=== PATIENT | female | born 1985 | race Caucasian/White ===

== ENCOUNTER 2016-05-07 18:46 | Emergency (ER) | payer OTHER ==
--- NOTE | 2016-05-07 19:53 | UC ---
Cardiac HPI - HPI Summary HPI Summary: 30 yo female took doxy last PM with a sip of water and then went to sleep Awoke with upper esophageal pain able to eat and drink today took meds today with problems no n/v - History of Current Complaint Chief Complaint: UC Stated Complaint: FB IN THROAT Time Seen by Provider: 05/07/16 19:29 Hx Obtained From: Patient Onset/Duration: Sudden Onset, Lasting Hours Timing: Constant Initial Severity: Moderate Current Severity: Moderate Pain Intensity: 5 Chest Pain Location: Upper Sternal Character: Dull/Aching Aggravating: Nothing - eating and drinking make it worse Alleviating: Nothing Associated Signs & Symptoms: Positive: Chest Pain - Allergy/Home Medications Allergies/Adverse Reactions: Allergies Allergy/AdvReac Type Severity Reaction Status Date / Time Cephalexin [From Keflex] Allergy Unknown Rash Verified 05/07/16 19:11 Amoxicillin Allergy Rash Verified 05/07/16 19:11 Naproxen [From Aleve] AdvReac Mild Swelling Verified 05/07/16 19:11 PMH/Surg Hx/FS Hx/Imm Hx Endocrine History Of: Reports: Thyroid Disease Denies: Diabetes Cardiovascular History Of: Denies: Cardiac Disorders, Hypertension, Pacemaker/ICD Respiratory History Of: Denies: COPD, Asthma GI/ History Of: Denies: Ulcer Psychological History Of: Reports: Anxiety, Depression - Surgical History Surgical History: None - Family History Known Family History: Positive: Hypertension, Diabetes - Social History Alcohol Use: None Substance Use Type: None Smoking Status (MU): Never Smoked Tobacco Have You Smoked in the Last Year: No - Immunization History Vaccination Up to Date: Yes Review of Systems Constitutional: Negative Skin: Negative Eyes: Negative ENT: Negative Respiratory: Negative Cardiovascular: Chest Pain Gastrointestinal: Negative Genitourinary: Negative Motor: Negative Neurovascular: Negative Musculoskeletal: Negative Neurological: Negative Psychological: Negative All Other Systems Reviewed And Are Negative: Yes Physical Exam Triage Information Reviewed: Yes Appearance: Well-Appearing, Well-Nourished, Obese Vital Signs: Initial Vital Signs Temp 97.3 F 05/07/16 18:59 Pulse 83 05/07/16 18:59 Resp 16 05/07/16 18:59 BP 153/103 05/07/16 18:59 Pulse Ox 97 05/07/16 18:59 Eyes: Positive: Conjunctiva Clear ENT: Positive: Hearing grossly normal. Negative: Nasal congestion, Nasal drainage, Trismus, Muffled/hoarse voice Neck: Positive: Supple, Nontender Respiratory: Positive: Lungs clear, Normal breath sounds, No respiratory distress, No accessory muscle use Cardiovascular: Positive: RRR, No Murmur, Pulses Normal Abdomen Description: Positive: Nontender, Soft Musculoskeletal: Positive: ROM Intact, No Edema Neurological: Positive: Alert Psychological Exam: Normal Skin Exam: Normal - Clinical Impression Provider Diagnoses: pill esophagitis Discharge - Discharge Plan Condition: Stable Disposition: HOME Prescriptions: Omeprazole [Prilosec] 20 mg PO DAILY #14 cap Patient Education Materials: Esophagitis (ED) Referrals: Marci Graves MD [Primary Care Provider] - 4 Days (if not better) Additional Instructions: PILL ESOPHAGITIS TAKE YOUR DOXY WITH A LARGE GLASS OF WATER DON'T LAY DOWN FOR AT LEAST 30 MINUTES Mylanta 30cc (2 tablespoons) every 2 hours while awake for about 3 days soft diet for 3-4 days
[2016-05-07 20:04] VITALS: BP 125/90
== END 2016-05-07 20:04 | disposition home or self-care (01) ==
LOC: UCEAST 18:46
DX: K20.9 Esophagitis, unspecified (principal); Z88.6 Allergy status to analgesic agent; Z88.1 Allergy status to other antibiotic agents; Z88.0 Allergy status to penicillin
CPT/HCPCS: 99212; G0463

== ENCOUNTER 2016-08-28 03:44 | Emergency (ER) | payer OTHER ==
[2016-08-28 04:27] LABS: Hematocrit 38 % (35-47); Hemoglobin 12.3 g/dl (12.0-16.0); Mean Corpuscular HGB Conc 33 g/dl (31-36); Mean Corpuscular Hemoglobin 26 pg (27-31); Mean Corpuscular Volume 79 fL (80-97); Mean Platelet Volume 8 um3 (7.4-10.4); Red Blood Count 4.78 10^6/ul (4.0-5.4); Red Cell Distribution Width 16 % (10.5-15); White Blood Count 8.5 10^3/ul (3.5-10.8)
[2016-08-28 04:48] LABS: ALT 19 U/L (7-52); AST 19 U/L (13-39); Albumin 3.8 g/dL (3.2-5.2); Alkaline Phosphatase 77 U/L (34-104); Anion Gap 6 mmol/L (2-11); BUN/Creatinine Ratio 14.6 (8-20); Blood Urea Nitrogen 13 mg/dL (6-24); CO2 Carbon Dioxide 26 mmol/L (22-32); Calcium 8.6 mg/dL (8.6-10.3); Chloride 102 mmol/L (101-111); EGFR African American 94.5 (>60); EGFR Non-African American 73.5 (>60); Globulin 3.1 g/dL (2-4); Glucose 114 mg/dL (70-100); Potassium 3.8 mmol/L (3.5-5.0); Sodium 134 mmol/L (133-145); Total Protein 6.9 g/dL (6.4-8.9)
[2016-08-28 04:59] VITALS: BP 105/63
--- NOTE | 2016-08-28 06:37 | RAD ---
INDICATION: Short of breath. Cold. COMPARISON: None TECHNIQUE: PA and lateral dual-energy views were obtained. FINDINGS: Bones/Soft Tissues: There are no acute bony findings. Cardiomediastinal: The cardiomediastinal silhouette is normal. Lungs: There are no infiltrates. Pleura: There are no pleural effusions. Other: None IMPRESSION: NEGATIVE EXAMINATION.
--- NOTE | 2016-08-28 06:39 | ED ---
Hunter Kidd Anna, scribed for Ignacio Mcdaniels MD on 08/28/16 at 0405 . Respiratory - HPI Summary HPI Summary: Patient is a 30 y/o female coming to [facility] presenting with SOB that began when she woke up at 0300 this morning. She has had a cough, intermittent hot flashes , lower extremity edema, intermittent jaw pain, and intermittent blue nail beds. Her history is significant for chronic lyme disease and anxiety. She takes Sertraline. She has been under some stress lately, but not as much as at other times. She is approaching the beginning of her next menstrual cycle. Denies history of blood clots. She flew to [place] in June and found her feet to be particularly swollen at that time. She noticed pitting edema at that time. Patient medications were reviewed this visit. - History of Current Complaint Chief Complaint: EDShortnessOfBreath Stated Complaint: SOB Hx Obtained From: Patient - Allergy/Home Medications Allergies/Adverse Reactions: Allergies Allergy/AdvReac Type Severity Reaction Status Date / Time Cephalexin [From Keflex] Allergy Unknown Rash Verified 05/07/16 19:11 Amoxicillin Allergy Rash Verified 05/07/16 19:11 Naproxen [From Aleve] AdvReac Mild Swelling Verified 05/07/16 19:11 PMH/Surg Hx/FS Hx/Imm Hx Endocrine/Hematology History: Reports: Hx Thyroid Disease, Hx Anemia - takes iron daily, Other Endocrine/Hematological Disorders - Hx chronic lyme disease Denies: Hx Diabetes Cardiovascular History: Denies: Hx Hypertension, Hx Pacemaker/ICD Respiratory History: Reports: Hx Sleep Apnea - evaluation for 09/2013 Denies: Hx Asthma, Hx Chronic Obstructive Pulmonary Disease (COPD) GI History: Denies: Hx Ulcer Musculoskeletal History: Reports: Hx Orthopedic Injury - 1995 (right) arm fx Sensory History: Reports: Hx Contacts or Glasses Denies: Hx Hearing Aid Opthamlomology History: Reports: Hx Contacts or Glasses Neurological History: Reports: Hx Headaches Psychiatric History: Reports: Hx Anxiety, Hx Depression Denies: Hx Panic Disorder - Cancer History Cancer Type, Location and Year: none Infectious Disease History: Denies: Hx Clostridium Difficile, Hx Hepatitis, Hx Human Immunodeficiency Virus (HIV), Hx of Known/Suspected MRSA, Hx Shingles, Hx Tuberculosis, Hx Known/ Suspected VRE, Hx Known/Suspected VRSA, History Other Infectious Disease, Traveled Outside the [place] in Last 30 Days - Family History Known Family History: Positive: Hypertension, Diabetes - Social History Alcohol Use: None Substance Use Type: Reports: None Smoking Status (MU): Never Smoked Tobacco Have You Smoked in the Last Year: No Review of Systems Constitutional: Other - hot flashes Negative: Fever, Chills Negative: Erythema Negative: Sore Throat Negative: Chest Pain Positive: Shortness Of Breath, Cough Negative: Abdominal Pain, Vomiting, Nausea Negative: dysuria, hematuria Positive: Arthralgia - jaw pain, Edema. Negative: Myalgia Skin: Other - intermittent blue nail beds Negative: Rash Neurological: Other - Denies dizziness All Other Systems Reviewed And Are Negative: Yes Physical Exam - Summary Physical Exam Summary: Constitutional: Well-developed, Well-nourished, Alert. (-) Distressed Skin: Warm, Dry HENT: Normocephalic; Atraumatic Eyes: Conjunctiva normal Neck: Musculoskeletal ROM normal neck. (-) JVD, (-) Stridor, (-) Tracheal deviation Cardio: Rhythm regular, rate normal, Heart sounds normal; Intact distal pulses; The pedal pulses are 2+ and symmetric. Radial pulses are 2+ and symmetric. (-) Murmur Pulmonary/Chest wall: Effort normal. (-) Respiratory distress, (-) Wheezes, (-) Rales Abd: Soft, (-) Tenderness, (-) Distension, (-) Guarding, (-) Rebound Musculoskeletal: (-) Edema Lymph: (-) Cervical adenopathy Neuro: Alert, Oriented x3 Psych: Mood and affect Normal Triage Information Reviewed: Yes Vital Signs On Initial Exam: Initial Vitals Temp Pulse Resp BP Pulse Ox 97.7 F 86 20 149/56 100 08/28/16 03:46 08/28/16 03:46 08/28/16 03:46 08/28/16 03:46 08/28/16 03:46 Vital Signs Reviewed: Yes Diagnostics - Vital Signs Vital Signs Temp Pulse Resp BP Pulse Ox 08/28/16 03:46 97.7 F 86 20 149/56 100 - Laboratory Result Diagrams: 08/28/16 04:16 08/28/16 04:16 Lab Statement: Any lab studies that have been ordered have been reviewed, and results considered in the medical decision making process. - Radiology CXR Xray Interpretation: No Acute Changes Radiology Interpretation Completed By: ED Physician - IMPRESSION: No acute disease - EKG 0423 Cardiac Rate: NL - 79 bpm EKG Rhythm: Sinus Rhythm ST Segment: Normal Ectopy: None EKG Interpretation: No STEMI Re-Evaluation - Re-Evaluation First Eval Re-Evaluation Time: 05:34 Comment: Discussed results and plan of care with patient. Patient is agreeable with plan. Disposition - Course Assessment/Plan: Patient is a 30 y/o female coming to [facility] presenting with SOB that began when she woke up at 0300 this morning. Her physical exam is normal. Labs reveal D-Dimer <200, BNP of 17, glucose of 114, and WBC of 8.5. CXR reveals no acute disease. EKG reveals NSR at 79 bpm. Patient will be discharged home with follow up from her PCP. She is agreeable to this plan. - Diagnoses Provider Diagnoses: Shortness of breath Discharge - Discharge Plan Condition: Stable Disposition: HOME Patient Education Materials: Dyspnea (ED) Referrals: Marci Graves MD [Primary Care Provider] - Additional Instructions: Follow up with primary care provider within 48 hours. RETURN TO THE EMERGENCY DEPARTMENT FOR CHANGING OR WORSENING SYMPTOMS. The documentation as recorded by the Hunter daniels Anna accurately reflects the service I personally performed and the decisions made by me, Ignacio Mcdaniels MD.
== END 2016-08-28 05:56 | disposition home or self-care (01) ==
LOC: ED 03:44
DX: R06.02 Shortness of breath (principal); D64.9 Anemia, unspecified; Z88.0 Allergy status to penicillin
CPT/HCPCS: 36415; 71020; 80053; 83880; 84484; 84702; 85025; 85379; 93005; 99282

== ENCOUNTER 2016-11-12 16:29 | Emergency (ER) | payer OTHER ==
--- NOTE | 2016-11-12 17:40 | UC ---
Skin Complaint HPI - HPI Summary HPI Summary: Patient states she was bite by black flies two weeks ago in [place] on the beach. All of the areas have healed except the one on her right foot. She states this area is red, warm to touch and had a small amount of green drainage from it. She states that the center had dried up and is beginning to scab over. She states there are no red streaks coming up the leg. Denies fever/chills. - History of Current Complaint Chief Complaint: UCSkin Time Seen by Provider: 11/12/16 17:19 Stated Complaint: BUG BITE,INFLAMED Hx Obtained From: Patient Hx Last Menstrual Period: 10/27/16 ?: No Onset/Duration: Sudden Onset, Lasting Weeks Onset Severity: Mild Current Severity: Mild Location: Discrete, Foot (Left) Character: Swelling, Pruritus, Raised, Painful Aggravating: Touch Alleviating: Nothing - Allergy/Home Medications Allergies/Adverse Reactions: Allergies Allergy/AdvReac Type Severity Reaction Status Date / Time Cephalexin [From Keflex] Allergy Unknown Rash Verified 11/12/16 16:38 Amoxicillin Allergy Rash Verified 11/12/16 16:38 Naproxen [From Aleve] AdvReac Mild Swelling Verified 11/12/16 16:38 Review of Systems Skin: Other - insect bite, with surrounding redness, warmth, and peeling skin. All Other Systems Reviewed And Are Negative: Yes PMH/Surg Hx/FS Hx/Imm Hx Previously Healthy: Yes - Surgical History Surgical History: None - Family History Known Family History: Positive: Hypertension, Diabetes - Social History Alcohol Use: None Substance Use Type: None Smoking Status (MU): Never Smoked Tobacco Have You Smoked in the Last Year: No - Immunization History Vaccination Up to Date: Yes Physical Exam Triage Information Reviewed: Yes Appearance: Well-Appearing Vital Signs: Initial Vital Signs Temp 96.5 F 11/12/16 16:33 Pulse Ox 99 11/12/16 16:33 Vital Signs Reviewed: Yes Eye Exam: Normal ENT Exam: Normal Neck exam: Normal Respiratory Exam: Normal Cardiovascular Exam: Normal Skin Exam: Other - left foot lateral aspect, inspection: dried lifting scab at center 1.0 cm, with surrounding erythema, induration and slighly warm to touch. Course/Dx - Course Course Of Treatment: Patient presents two weeks s/p insect bites to the left foot, with residual redness, warmth, and pain. She also reports drainage from the site, and currently the scab is dried, so a culture could no be obtained. There was no flucuance so I+D was not indicated. She presents with localized cellulitis,and was RX Keflex 500 mg by mouth four times daily x 10 days. I discussed with the patient that if her symptoms worsen she will need an immediate re-evaluation of the infection. She verbalzied understanding and was in agreement with the discharge plan. - Differential Diagnoses - Skin Complaint Differential Diagnoses: Cellulitis - Diagnoses Provider Diagnoses: cellulitis Discharge - Discharge Plan Condition: Stable Disposition: HOME Prescriptions: Cephalexin CAP* [Keflex CAP*] 500 mg PO QID #40 cap Patient Education Materials: Cellulitis (ED) Referrals: Marci Graves MD [Primary Care Provider] -
== END 2016-11-12 17:30 | disposition home or self-care (01) ==
LOC: UCEAST 16:29
DX: L03.115 Cellulitis of right lower limb (principal); Z88.6 Allergy status to analgesic agent; Z88.3 Allergy status to other anti-infective agents
CPT/HCPCS: 99212; G0463

== ENCOUNTER → 2018-08-02 18:18 | Emergency (ER) | payer OTHER ==
--- OUTSIDE RECORDS SUMMARY | 2018-08-02 18:45 | XMS REPORT | Continuity of Care Document ---
:1985 External Reference #:[id number] Author Name Alva Almaraz MD Address [facility] [place] [address] Care Team Providers Name Role Phone Marci Graves MD Care Team Information Control Clerk Auditing Unavailable Marci Graves MD Primary Care Physician Unavailable Payers Date Identification Numbers Payment Provider Subscriber Policy Number: [id number] Sandra Prather PayID: [id number] [address] [place] [address] Advance Directives Description No Information Available Problems Description No Information Family History Description No Information Available Social History Type Date Description Comments Sex Unknown Tobacco Use Start: Unknown Patient has never smoked Smoking Status Reviewed: 07/27/18 Patient has never smoked Allergies, Adverse Reactions, Alerts Active Allergies Reaction Severity Comments Date Naproxen 07/09/2018 Azithromycin Free Text 07/09/2018 Cephalexin Free Text 07/09/2018 Medications Active Medications SIG Qnty Indications Ordering Date Provider Pantoprazole Sodium take 1 tablet 30tabs Alva 07/28/2018 40mg once daily. take MD Sung Tablets DR 30-60 minutes before eating. Levothyroxine Sodium 1 by mouth every 100tabs Marci Graves, day 100mcg Tablets Hydroxyzine HCL Take 1 2 Tablets Unknown 25mg By Mouth Four Tablets Times A Day as Needed For Anxiety Metformin HCL ER Take One Tablet Unknown 500mg By Mouth Twice A Tablets ER 24HR Day Immunizations Description No Information Available Vital Signs Date Vital Result Comment 07/27/2018 3:56pm Height 70 inches 5'10" Weight 357.00 lb BP Systolic 142 mmHg BP Diastolic 91 mmHg Heart Rate 102 /min BMI (Body Mass Index) 51.2 kg/m2 Results Test Date Facility Test Result H/L Range Note Lipid Profile 04/18/2018 [facility] Import Triglycerides 340 mg/dL 1 (Trig/Chol/HDL) Cholesterol 174 mg/dL 2 HDL Cholesterol 27.6 mg/dL 3 LDL Cholesterol 78 mg/dL 4 Lab Results 04/18/2018 [facility] Total Protein 7.2 g/dL 6.4-8.9 Albumin 4.0 g/dL 3.2-5.2 Globulin 3.2 g/dL 2-4 Albumin/Globulin Ratio 1.3 1 1-3 Total Bilirubin 0.40 mg/dL 0.2-1 Direct Bilirubin 0.00 mg/dL Low 0.03-0.18 Alkaline Phosphatase 67 U/L 34-104 Alt 19 U/L 7-52 Ast 20 U/L 13-39 Glucose 106 mg/dL High 70-100 Creatinine 0.87 mg/dL 0.51-0.95 Egfr Non- 74.5 1 Egfr 90.2 1 5 TSH (Thyroid Stim Horm) 2.11 mcIU/mL 0.34-5.6 Free T4 (Free Thyroxine) 0.92 ng/dL 0.61-1.12 Insulin Level 22.1 mcIU/mL High 2-16 Dhea Sulfate 192 g/dL 45-295 6 Lab Results 04/18/2018 [facility] Import Glucose 106 mg/dL High 70-100 Creatinine 0.87 mg/dL 0.51-0.95 Egfr Non- 74.5 1 Egfr 90.2 1 7 TSH (Thyroid Stim Horm) 2.11 mcIU/mL 0.34-5.6 Free T4 (Free Thyroxine) 0.92 ng/dL 0.61-1.12 Insulin Level 22.1 mcIU/mL High 2-16 Dhea Sulfate 192 g/dL 45-295 8 Lab Results 04/18/2018 N[facility] Import Creatinine 0.87 mg/dL 0.51-0.95 Egfr Non- 74.5 1 Egfr 90.2 1 9 TSH (Thyroid Stim Horm) 2.11 mcIU/mL 0.34-5.6 Free T4 (Free Thyroxine) 0.92 ng/dL 0.61-1.12 Insulin Level 22.1 mcIU/mL High 2-16 Dhea Sulfate 192 g/dL 45-295 10 Lab Results 04/18/2018 [facility] Import TSH (Thyroid Stim 2.11 mcIU/mL 0.34-5.6 Horm) Free T4 (Free Thyroxine) 0.92 ng/dL 0.61-1.12 Insulin Level 22.1 mcIU/mL High 2-16 Dhea Sulfate 192 g/dL 45-295 11 Testosterone Free 04/18/2018 N[facility] Import Free Testosterone 0.56 ng/dL 0.06-1.03 12 & Total ng/dl Testosterone 28 ng/dL 8-60 13 Lab Results 03/20/2018 [facility] Import Free T3 2.46 pg/mL 2-4.9 Free T4 0.77 ng/dL 0.75-1.54 TSH 6.72 mIU/L High 0.5-6 14 Comprehensive Metabolic Prof 03/13/2018 [facility] Import Sodium 138 mEq/L 134-149 Potassium 4.5 mEq/L 3.6-5.5 Chloride 105 mEq/L 94-112 Carbon Dioxide 26 mEq/L 21-32 Glucose 103 mg/dL 70-105 BUN 6 mg/dL 6-26 Creatinine 0.9 mg/dL 0.6-1.4 BUN/Creat Ratio 6.7 CALC Low 8-36 Calcium 9.0 mg/dL 8.6-10.2 Total Protein 7.5 g/dL 6.4-8.3 Albumin 4.4 g/dL 3.8-5.5 Globulin 3.1 g/dL 2-4.8 A/G Ratio 1.4 CALC 0.6-2.3 Alk. Phosphatase 74 U/L 30-110 Alt (SGPT) 30 U/L 7-35 Ast (Sgot) 23 U/L 5-34 Total Bilirubin 0.4 mg/dL 0.2-1.3 GFR Non- >60 ml/min/1.73m^ GFR >60 ml/min/1.73m^ Lipid Profile 03/13/2018 N2N/[facility] Import Cholesterol 192 mg/dL 120-200 Triglycerides 397 mg/dL High 30-200 HDL Cholesterol 35 mg/dL 30-85 LDL (Calculated) 78 CALC 0-129 VLDL Cholesterol 79 mg/dL High 0-50 HDL Risk Factor 5.5 CALC High 0-4.4 Lab Results 03/13/2018 N2N/[facility] Import WBC 8.0 10^3/uL 4-10 RBC 5.05 10^6/uL 3.93-6 HGB 13.3 g/dL 12-17 HCT 41 % 35-50 MCV 81.2 fL 80-95 MCH 26.3 pg 25.6-32.2 MCHC 32.4 g/dL 32.2-36 RDW-CV 14.2 % 11.6-14.4 PLT 324 10^3/uL 163-400 MPV 9.2 fL Low 9.4-12.4 Silas# 5.06 10^3/uL 1.56-6.13 Lymph# 2.33 10^3/uL 1.18-3.74 Elk# 0.48 10^3/uL 0.24-0.82 Eos # 0.1 10^3/uL 0-0.5 Baso # 0.04 10^3/uL 0.01-0.08 Silas% 63.1 % 34-70 Lymph % 29.1 % 20-52 Elk% 6.0 % 5-12 Eos% 1.1 % 0.7-7 Baso% 0.5 % 0.1-1.2 Lab Results 03/13/2018 N2N/[facility]D Import LDL, Direct 101 mg/dL 0-130 WBC 8.0 10^3/uL 4-10 RBC 5.05 10^6/uL 3.93-6 HGB 13.3 g/dL 12-17 HCT 41 % 35-50 MCV 81.2 fL 80-95 MCH 26.3 pg 25.6-32.2 MCHC 32.4 g/dL 32.2-36 RDW-CV 14.2 % 11.6-14.4 PLT 324 10^3/uL 163-400 MPV 9.2 fL Low 9.4-12.4 Silas# 5.06 10^3/uL 1.56-6.13 Lymph# 2.33 10^3/uL 1.18-3.74 Elk# 0.48 10^3/uL 0.24-0.82 Eos # 0.1 10^3/uL 0-0.5 Baso # 0.04 10^3/uL 0.01-0.08 Silas% 63.1 % 34-70 Lymph % 29.1 % 20-52 Elk% 6.0 % 5-12 Eos% 1.1 % 0.7-7 Baso% 0.5 % 0.1-1.2 CBC Auto Diff 08/28/2016 N2N/[address] Import White Blood Count 8.5 10^3/uL 3.5-10.8 Red Blood Count 4.78 10^6/uL 4-5.4 Hemoglobin 12.3 g/dL 12-16 Hematocrit 38 % 35-47 Mean Corpuscular Volume 79 fL Low 80-97 Mean Corpuscular Hemoglobin 26 pg Low 27-31 Mean Corpuscular HGB Conc 33 g/dL 31-36 Red Cell Distribution Width 16 % High 10.5-15 Platelet Count 261 10^3/uL 150-450 Mean Platelet Volume 8 um3 7.4-10.4 Abs Neutrophils 4.1 10^3/uL 1.5-7.7 Abs Lymphocytes 3.6 10^3/uL 1-4.8 Abs Monocytes 0.5 10^3/uL 0-0.8 Abs Eosinophils 0.2 10^3/uL 0-0.6 Abs Basophils 0.1 10^3/uL 0-0.2 Abs Nucleated RBC 0.01 10^3/uL Granulocyte % 47.7 % 38-83 Lymphocyte % 42.7 % 25-47 Monocyte % 6.4 % 1-9 Eosinophil % 2.2 % 0-6 Basophil % 1.0 % 0-2 Nucleated Red Blood Cells % 0.1 1 Lab Results 08/28/[address] [facility] Import D Dimer Quantitative < 200 ng/mL 15 B-Type Natriuretic Peptide BNP 17 pg/mL 16 Comp Metabolic Panel 08/28/2016 N2N/[address] Import Sodium 134 mmol/L 133- 145 Potassium 3.8 mmol/L 3.5-5 Chloride 102 mmol/L 101-111 Co2 Carbon Dioxide 26 mmol/L 22-32 Anion Gap 6 mmol/L 2-11 Glucose 114 mg/dL High 70-100 Blood Urea Nitrogen 13 mg/dL 6-24 Creatinine 0.89 mg/dL 0.51-0.95 BUN/Creatinine Ratio 14.6 1 8-20 Calcium 8.6 mg/dL 8.6-10.3 Total Protein 6.9 g/dL 6.4-8.9 Albumin 3.8 g/dL 3.2-5.2 Globulin 3.1 g/dL 2-4 Albumin/Globulin Ratio 1.2 1 1-3 Total Bilirubin 0.20 mg/dL 0.2-1 Alkaline Phosphatase 77 U/L 34-104 Alt 19 U/L 7-52 Ast 19 U/L 13-39 Egfr Non- 73.5 1 Egfr 94.5 1 17 Lab Results 08/28/2016 N2N/[facility]D Import Troponin I 0.00 ng/mL 18 HCG < 0.60 mIU/mL 19 Comprehensive Metabolic Prof 08/10/2016 N2N/[facility] Import Sodium 141 mEq/L 134-149 Potassium 4.5 mEq/L 3.6-5.5 Chloride 101 mEq/L 94-112 Carbon Dioxide 22 mEq/L 21-32 Glucose 113 mg/dL High 70-105 20 BUN 16 mg/dL 6-26 Creatinine 0.8 mg/dL 0.6-1.4 BUN/Creat Ratio 20.0 CALC 8-36 Calcium 9.0 mg/dL 8.6-10.2 Total Protein 7.5 g/dL 6.4-8.3 Albumin 4.4 g/dL 3.8-5.5 Globulin 3.1 g/dL 2-4.8 A/G Ratio 1.4 CALC 0.6-2.3 Alk. Phosphatase 71 U/L 30-110 Alt (SGPT) 18 U/L 7-35 Ast (Sgot) 21 U/L 5-34 Total Bilirubin 0.3 mg/dL 0.2-1.3 GFR Non- >60 ml/min/1.73m^ GFR >60 ml/min/1.73m^ Lipid Profile 08/10/2016 N2N[facility] Import Cholesterol 193 mg/dL 120-200 Triglycerides 353 mg/dL High 30-200 HDL Cholesterol 35 mg/dL 30-85 LDL (Calculated) 87 CALC 0-129 VLDL Cholesterol 71 mg/dL High 0-50 HDL Risk Factor 5.5 CALC High 0-4.4 Complete Blood Count 08/10/2016 N2N/[facility] Import WBC 5.5 10^3/uL 3.6-9.6 RBC 4.79 10^6/uL 3.9-5.7 HGB 12.9 g/dL 12.1-17.2 HCT 38 % 36-50 MCV 80.0 fL Low 82.2-97.4 MCH 27.0 pg Low 27.6-33.3 21 MCHC 33.8 g/dL 33-35.5 RDW 15.3 % High 11.6-13.7 PLT 319 10^3/uL 150-400 MPV 7.1 fL Low 7.4-10.4 Gran # 3.5 10^3/uL 1.5-7.2 Lymph# 1.8 10^3/uL 0.7-4.9 Elk# 0.2 10^3/uL 0.1-0.9 Gran % 60.9 % 42.2-75.2 Lymph % 34.0 % 20.5-51.1 Elk% 5.1 % 1.7-9.3 Lab Results 08/10/2016 N2N/[facility] Import LDL, Direct 91 mg/dL 0-130 1 Desirable: <150 Borderline High: 150-199 High: 200-499 Very High: >500 2 Desirable: <200 Borderline High: 200-239 High: >239 3 Low: <40 Desirable: 40-60 High: >60 4 Desirable: <100 Near Optimal: 100-129 Borderline High: 130-159 High: 160-189 Very High: >189 5 Low: <40 Desirable: 40-60 High: >60 6 Desirable: <100 Near Optimal: 100-129 Borderline High: 130-159 High: 160-189 Very High: >189 7 Low: <40 Desirable: 40-60 High: >60 8 Desirable: <100 Near Optimal: 100-129 Borderline High: 130-159 High: 160-189 Very High: >189 9 Low: <40 Desirable: 40-60 High: >60 10 Desirable: <100 Near Optimal: 100-129 Borderline High: 130-159 High: 160-189 Very High: >189 11 Desirable: <100 Near Optimal: 100-129 Borderline High: 130-159 High: 160-189 Very High: >189 12 Desirable: <150 Borderline High: 150-199 High: 200-499 Very High: >500 13 Desirable: <200 Borderline High: 200-239 High: >239 14 RESULTS VERIFIED BY REPEAT ANALYSIS 15 Please note: The following may produce a false positive D Dimer test: - Rheumatoid factor greater than 60 IU/ml - Plasma hemoglobin greater than 0.05 gm/dl - Bilirubin greater than 50 mg/dl - Lipids greater than 1000 mg/dl - FDP greater than 20 ug/ml 16 >100 to <200 pg/mL: likely compensated congestive heart failure (CHF) 200 to 400 pg/mL: likely moderate CHF >400 pg/mL: likely moderate to severe CHF 17 Because ethnic data is not always readily available, this report includes an eGFR for both -Americans and non- Americans. The National Kidney Disease Education Program (NKDEP) does not endorse the use of the MDRD equation for patients that are not between the ages of 18 and 70, are , have extremes of body size, muscle mass, or nutritional status, or are non- or non-. According to the National Kidney Foundation, irrespective of diagnosis, the stage of the disease is based on the level of kidney function: Stage Description GFR(mL/min/1.73 m(2)) 1 Kidney damage with normal or decreased GFR 90 2 Kidney damage with mild decrease in GFR 60-89 3 Moderate decrease in GFR 30-59 4 Severe decrease in GFR 15-29 5 Kidney failure <15 (or dialysis) 18 Please note: The following may produce a false positive D Dimer test: - Rheumatoid factor greater than 60 IU/ml - Plasma hemoglobin greater than 0.05 gm/dl - Bilirubin greater than 50 mg/dl - Lipids greater than 1000 mg/dl - FDP greater than 20 ug/ml 19 >100 to <200 pg/mL: likely compensated congestive heart failure (CHF) 200 to 400 pg/mL: likely moderate CHF >400 pg/mL: likely moderate to severe CHF 20 RESULTS VERIFIED BY REPEAT ANALYSIS 21 consistent w/ previous results Procedures Description No Information Available Encounters Description No Information Available Plan of Treatment No Information Available
--- OUTSIDE RECORDS SUMMARY | 2018-08-02 18:46 | XMS REPORT | Continuity of Care Document ---
:1985 External Reference #:[id number] Author Name KAUR Magana Address [address] [facility] [place] [address] Care Team Providers Name Role Phone Marci Graves Primary Care Physician Unavailable Payers Date Identification Numbers Payment Provider Subscriber Policy Number: [id number] [employer] Oliver[employer]ather [employer] Number: [id number] [id number] PayID: [id number] [place] [address] Advance Directives Description No Information Available Problems Date Description Provider Status Onset: 06/19/2015 Obesity Georgina Arroyo NP Active Onset: 06/19/2015 Hypothyroidism Georgina Arroyo NP Active Onset: 03/31/2014 Screening Unspecified Georgina Arroyo NP Inactive Inactive: 07/13/2015 Onset: 03/31/2014 Uncertain viability of Georgina Arroyo NP Resolved Resolved: 04/15/2014 Onset: 04/15/2014 With Inconclusive Georgina Arroyo NP Resolved Viabilty Resolved: 04/15/2014 Onset: 04/15/2014 Miscarriage Georgina Arroyo NP Resolved Resolved: 06/19/2015 Family History Date Family Member(s) Observation Comments Father Hypercholesterolemia Father Hypertension Father Kidney Stones Mother Hypothyroidism Mother OCD Mother Gallstones Mother Diabetes Mother Depression Number of Children 1 First Daughter Gastroesophageal Reflux Disease (GERD) Number of Siblings Siblings: 2 First Brother Healthy First Sister Crohn's Disease Paternal Grandfather due to OR () Paternal Grandmother due to Parkinsons () Paternal Grandmother Skin Cancer Paternal Grandmother due to Sepsis () Maternal Grandfather due to Leukemia () Maternal Grandmother due to Lung Cancer () Social History Type Date Description Comments Sex Unknown Education Highest level of education completed is a bachelor's degree Marital Status Patient is Living Situation Lives with spouse and daughter Pets Household pets include 2 cats Occupation [employer] Cigarette Use Never smoked cigarettes Alcohol Denies alcohol use Tobacco Use Start: Unknown Patient has never smoked Drug Use Denies drug use Smoking Status Reviewed: Patient has never 07/10/18 smoked Daily Caffeine Occ Soda Exercise Type/Frequency Exercises regularly Current Seat Belt/Car Seat Always uses a seat belt Currently Active The patient is currently sexually active Contraceptive Methods Does not currently use any method of control STD's Has HPV GARRET: 08/10/2012 Estimated Date of Based on LMP Delivery Allergies, Adverse Reactions, Alerts Date Description Reaction Status Severity Comments 07/10/2007 Keflex Active 02/07/2012 Aleve Active 03/31/2014 Latex Active Medications Medication Date Status Form Strength Qnty SIG Indications Ordering Provider Fish Oil 00/ Active Unknown 0000 Levothyroxine / Active 100mcg Unknown Sodium 0000 Vitamin D / Active Unknown 0000 Vitamin B12 / Active Unknown 0000 Metformin HCL / Active Unknown 0000 Percocet 06/30/ Hx Tablets 5-325mg 12tabs one Dvorah 2015 - tablet by Luis Carlos, 09/27/ mouth M.D. 2016 q4-6 hours as needed for strong pain PNV-Dha 06/11/ Hx Capsules 27-0.6-0.4 90caps take one Yessenia 2013 - -300mg capsule Gentry, 09/27/ by mouth ANP-C 2016 every day Vistaril 09/19/ Hx Capsules 50mg 20caps 1 tablet Courtney 2012 - po q 4-6 Meza, 03/14/ hours prn CNM 2012 anxiety + Dha 07/16/ Hx Misc 27-1&250mg 30unit 1 po qd María 2012 - s Phill, 03/31/ CNM 2013 No Active 02/06/ Hx Unknown Medications 2011 - 2012 Briellyn 09/11/ Hx Tablets 0.4-35mg-m 3mo 1 po qd Acosta Baez 2011 - cg Ben, 09/09/ M.Eder 2011 Tri-Sprintec 09/11/ Hx Tablets 0.18/0.215 4mo 1 po qd Valeri 2011 - /0.25 mg-3 Thang, 02/04/ 2011 Loloestrin Fe 07/15/ Hx 1mg/10mcg 1Pack 1 po qd V25.49 Courtney 2010 - And 10mcg Meza, 09/11/ HANNAH 2012 Cecilia 08/12/ Hx Tablets 3-0.02mg 28tabs 1 po qd V25.49 Yessenia 2009 - Gentry, 02/22/ KAUR 2009 Sertraline HCL / Hx Unknown 0000 - 2017 Medications Administered in Office Medication Date Status Form Strength Qnty SIG Indications Ordering Provider No PT Tbco Administered Injection Yessenia SCRN RNG 019 GEORGE RinaldiC No PT Tbco Administered Injection Yessenia SCRN RNG 018 HYUN Rinaldi-C PT SCRN Tbco Administered Injection Yessenia Id as Non User 018 KAUR Rinaldi Immunizations CPT Code Status Date Vaccine Lot # [id number] Given 02/28/2012 Influenza Virus Vaccine 3Years Or Older 05756 Given 11/16/2009 Gardasil Vaccine For HPV 01423 Given 05/28/2009 Gardasil Vaccine For HPV 62537 Given 03/18/2009 Gardasil Vaccine For HPV Vital Signs Date Vital Result Comment 07/10/2018 1:02pm BP Systolic 128 mmHg BP Diastolic 80 mmHg Height 70.25 inches 5'10.25" Weight 340.00 lb BMI (Body Mass Index) 48.4 kg/m2 Last Menstrual Period 9682419 3 Parity 1 10/12/2017 9:01am BP Systolic 130 mmHg BP Diastolic 60 mmHg Height 70.25 inches 5'10.25" Weight 335.00 lb BMI (Body Mass Index) 47.7 kg/m2 Last Menstrual Period [id number] 3 Parity 1 09/27/2016 7:59am BP Systolic 130 mmHg BP Diastolic 80 mmHg Height 70.25 inches 5'10.25" Weight 333.00 lb BMI (Body Mass Index) 47.4 kg/m2 Last Menstrual Period [id number] 3 Parity 1 06/30/2015 9:49am BP Systolic 130 mmHg BP Diastolic 72 mmHg Height 70.25 inches 5'10.25" Weight 303.00 lb BMI (Body Mass Index) 43.2 kg/m2 Last Menstrual Period [id number] 3 Parity 1 06/24/2015 9:13am BP Systolic 134 mmHg BP Diastolic 82 mmHg Height 70.25 inches 5'10.25" Weight 304.00 lb BMI (Body Mass Index) 43.3 kg/m2 Last Menstrual Period 0320127 3 Parity 1 06/19/2015 3:17pm BP Systolic 122 mmHg BP Diastolic 70 mmHg Height 70.25 inches 5'10.25" Weight 306.00 lb BMI (Body Mass Index) 43.6 kg/m2 Last Menstrual Period 8249215 2 Parity 1 04/15/2014 8:25am BP Systolic 108 mmHg BP Diastolic 72 mmHg Height 70.25 inches 5'10.25" Weight 273.00 lb BMI (Body Mass Index) 38.9 kg/m2 Last Menstrual Period 3281212 2 Parity 1 03/31/2014 2:12pm BP Systolic 126 mmHg BP Diastolic 72 mmHg Height 70.25 inches 5'10.25" Weight 269.00 lb BMI (Body Mass Index) 38.3 kg/m2 Last Menstrual Period 8809821 2 Parity 1 03/15/2013 9:48am BP Systolic 114 mmHg BP Diastolic 70 mmHg Height 69 inches 5'9" Weight 239.00 lb BMI (Body Mass Index) 35.3 kg/m2 Last Menstrual Period 3925623 1 Parity 1 10/15/2012 1:20pm BP Systolic 114 mmHg BP Diastolic 74 mmHg Height 69 inches 5'9" Weight 236.00 lb BMI (Body Mass Index) 34.8 kg/m2 Last Menstrual Period [id number] del 09/14/12 1 Parity 1 02/07/2012 2:07pm BP Systolic 112 mmHg BP Diastolic 74 mmHg Height 69 inches 5'9" Weight 232.00 lb BMI (Body Mass Index) 34.3 kg/m2 Last Menstrual Period 6976069 1 09/12/2011 1:00pm BP Systolic 120 mmHg BP Diastolic 86 mmHg Height 69 inches 5'9" Weight 231.00 lb BMI (Body Mass Index) 34.1 kg/m2 Last Menstrual Period [id number] 0 07/15/2010 12:54pm BP Systolic 112 mmHg BP Diastolic 72 mmHg Height 69.5 inches 5'9.50" Weight 229.00 lb BMI (Body Mass Index) 33.3 kg/m2 Last Menstrual Period [id number] 0 02/22/2010 1:49pm BP Systolic 130 mmHg BP Diastolic 90 mmHg Height 69.75 inches 5'9.75" Weight 224.00 lb BMI (Body Mass Index) 32.4 kg/m2 Last Menstrual Period [id number] 08/12/2009 8:54am BP Systolic 110 mmHg BP Diastolic 62 mmHg Height 69.75 inches 5'9.75" Weight 217.00 lb BMI (Body Mass Index) 31.4 kg/m2 Last Menstrual Period [id number] 0 06/18/2009 8:07am BP Systolic 116 mmHg BP Diastolic 68 mmHg Height 69.75 inches 5'9.75" Weight 214.00 lb BMI (Body Mass Index) 30.9 kg/m2 Last Menstrual Period 6908610 0 05/29/2009 1:00pm BP Systolic 130 mmHg BP Diastolic 58 mmHg Height 69 inches 5'9" Weight 207.00 lb BMI (Body Mass Index) 30.6 kg/m2 Last Menstrual Period 1201991 0 03/17/2009 1:17pm BP Systolic 106 mmHg BP Diastolic 60 mmHg Height 69 inches 5'9" Weight 207.00 lb BMI (Body Mass Index) 30.6 kg/m2 Last Menstrual Period [id number] 02/26/2009 1:20pm BP Systolic 130 mmHg BP Diastolic 70 mmHg Height 69 inches 5'9" Weight 202.00 lb BMI (Body Mass Index) 29.8 kg/m2 Last Menstrual Period 5228244 0 02/03/2009 8:08am BP Systolic 116 mmHg BP Diastolic 80 mmHg Height 69 inches 5'9" Weight 198.00 lb BMI (Body Mass Index) 29.2 kg/m2 Last Menstrual Period 7226000 0 07/23/2007 10:55am BP Systolic 112 mmHg BP Diastolic 70 mmHg Height 69 inches 5'9" Weight 244.00 lb BMI (Body Mass Index) 36.0 kg/m2 Last Menstrual Period 3065059 07/10/2007 9:40am BP Systolic 124 mmHg BP Diastolic 76 mmHg Height 69 inches 5'9" Weight 243.00 lb BMI (Body Mass Index) 35.9 kg/m2 Last Menstrual Period 5045863 Results Test Date Facility Test Result H/L Range Note Laboratory test 09/27/2016 [facility] Cytology SEE RESULT 1 [place] [address] BELOW [phone] Human Papilloma Virus Rna Negative N Negative 2 Laboratory test 08/03/2015 [facility] HCG 5.28 mIU/mL N 3 [place] [address] [phone] Laboratory test 07/13/2015 [facility] HCG 101.05 N 4 [place] [address] mIU/mL [phone] CBC With No Diff 07/09/2015 [facility] White Blood 8.6 10^3/uL N 3.5-10 [place] [address] Count .8 [phone] Red Blood Count 4.72 10^6/uL N 4.0-5.4 Hemoglobin 12.9 g/dL N 12.0-16.0 Hematocrit 39 % N 35-47 Mean Corpuscular Volume 83 fL N 80-97 Mean Corpuscular Hemoglobin 27 pg N 27-31 Mean Corpuscular HGB Conc 33 g/dL N 31-36 Red Cell Distribution Width 16 % High 10.5-15 Platelet Count 265 10^3/uL N 150-450 Mean Platelet Volume 8 um3 N 7.4-10.4 Laboratory test 07/09/2015 [facility] HCG 274.54 N 5 [place] [address] mIU/mL [phone] Liver Function 07/09/2015 [facility] Total Protein 7.0 g/dL N 6.4-8[place] [address] [phone] Albumin 4.2 g/dL N 3.2-5.2 Globulin 2.8 g/dL N 2-4 Albumin/Globulin Ratio 1.5 N 1-3 Total Bilirubin 0.30 mg/dL N 0.2-1.0 Direct Bilirubin 0.00 mg/dL Low 0.03-0.18 Alkaline Phosphatase 51 U/L N 34-104 Alt 15 U/L N 7-52 Ast 15 U/L N 13-39 Laboratory test 07/07/2015 [facility] HCG 525.88 N 6 [place] [address] mIU/mL [phone] Comp Metabolic 06/30/2015 [facility] Sodium 135 mmol/L N 133- 14 [place] [address] 5 [phone] Potassium 4.3 mmol/L N 3.5-5.0 Chloride 103 mmol/L N 101-111 Co2 Carbon Dioxide 27 mmol/L N 22-32 Anion Gap 5 mmol/L N 2-11 Glucose 95 mg/dL N 70-100 Blood Urea Nitrogen 7 mg/dL N 6-24 Creatinine 0.80 mg/dL N 0.51-0.95 BUN/Creatinine Ratio 8.8 N 8-20 Calcium 9.2 mg/dL N 8.6-10.3 Total Protein 7.0 g/dL N 6.4-8.9 Albumin 4.2 g/dL N 3.2-5.2 Globulin 2.8 g/dL N 2-4 Albumin/Globulin Ratio 1.5 N 1-3 Total Bilirubin 0.30 mg/dL N 0.2-1.0 Alkaline Phosphatase 49 U/L N 34-104 Alt 15 U/L N 7-52 Ast 16 U/L N 13-39 Egfr Non- 83.7 N >60 Egfr 107.6 N >60 7 CBC With No 06/30/2015 [facility] White Blood 5.9 10^3/uL N 3.5-10.8 [place] [address] Count [phone] Red Blood Count 4.78 10^6/uL N 4.0-5.4 Hemoglobin 12.9 g/dL N 12.0-16.0 Hematocrit 40 % N 35-47 Mean Corpuscular Volume 84 fL N 80-97 Mean Corpuscular Hemoglobin 27 pg N 27-31 Mean Corpuscular HGB Conc 32 g/dL N 31-36 Red Cell Distribution Width 15 % N 10.5-15 Platelet Count 258 10^3/uL N 150-450 Mean Platelet Volume 8 um3 N 7.4-10.4 Laboratory test 06/30/2015 [facility] HCG 1938.00 mIU/ mL N 8 finding [place], [place] [address] [phone] Laboratory test 06/26/2015 [facility] HCG 2836.00 mIU/ mL N 9 [place] [address] [phone] Laboratory test 06/24/2015 [facility] HCG 2978.00 mIU/ mL N 10 [address] [place], [place] [id number] [phone] Progesterone 3.2 ng/mL N 11 Laboratory test 06/22/2015 [facility] HCG 3031.00 N 12, 13 [place] [address] mIU/mL [phone] Laboratory test 06/19/2015 [facility] HCG 2837.00 N 14 [place] [address] mIU/mL [phone] Free T4 (Free Thyroxine) 0.88 ng/dL N 0.61-1.12 TSH (Thyroid Stim Horm) 1.39 ?IU/mL N 0.34-5.60 Laboratory test 06/19/2015 [facility] Cytology SEE RESULT 15 [place] [address] BELOW [phone] GC/Chlamydia 06/19/2015 [facility] Chlamydia Negative [place] [address] trachomatis Rna [phone] Neisseria gonorrhoeae (GC) Rna Negative N Negative Laboratory test 06/19/2015 [facility] Human Papilloma Negative N Negative [address] [place] [address] Virus Rna [phone] Laboratory test 05/02/2014 [facility] Beta HCG 2.97 IU/mL N 0.0-5.0 17 [place] [address] Quantitative [phone] TSH (Thyroid Stimulating Horm) 0.37 IU/mL N 0.34-5.60 Total T3 1.05 ng/mL N 0.87-1.78 Free T4 1.02 ng/mL N 0.61-1.12 Laboratory test 04/15/2014 [facility] Beta HCG 117.42 High 0.0 -5.0 18 [place] [address] Quantitative IU/mL [phone] Urine Culture 03/31/2014 [facility] Urine Culture (SEE 19 [place] [address] NOTE) Sensitivities [phone] Pap Plus HPV 03/15/2013 [facility] HPV HR- 20 CBC With Manual 10/02/2012 [facility] White Blood 5.5 4.8- 10.8 [place] [address] Count 10^3/uL [phone] Red Blood Count 5.17 10^6/uL 4.0-5.4 Hemoglobin 13.4 g/dL 12.0-16.0 Hematocrit 43 % 35-47 Mean Corpuscular Volume 83 fL 80-97 Mean Corpuscular Hemoglobin 26 pg Low 27-31 Mean Corpuscular HGB Conc 31 g/dL 31-36 Red Cell Distribution Width 17 % High 10.5-15 Platelet Count 256 10^3/uL 150-450 Mean Platelet Volume 9 um3 7.4-10.4 Abs Neutrophils 3.0 10^3/uL 1.5-7.7 Abs Lymphocytes 2.0 10^3/uL 1.0-4.8 Abs Monocytes 0.3 10^3/uL 0-0.8 Abs Eosinophils 0.1 10^3/uL 0-0.6 Abs Basophils 0.1 10^3/uL 0-0.2 Abs Nucleated RBC 0 10^3/uL Neutrophil % 56 % 38-83 Lymphocytes % 41 % 25-47 Monocytes % 2 % 0-13 Eosinophils % 1 % 0-6 RBC Morphology Normal Normal Laboratory test 10/02/2012 [facility] TSH (Thyroid 0.50 0.34- 5.60 [place] [address] Stimulating miu/mL [phone] Horm) Basic Metabolic 10/02/2012 [facility] Sodium 138 mmol/L 133- 145 [place] [address] [phone] Potassium 4.3 mmol/L 3.5-5.0 Chloride 103 mmol/L 101-111 Co2 Carbon Dioxide 27.0 mmol/L 22-32 Anion Gap 8.0 mmol/L 2-11 Glucose 92 mg/dL 70-100 Blood Urea Nitrogen 12 mg/dL 6-24 Creatinine 0.70 mg/dL 0.50-1.40 BUN/Creatinine Ratio 17.1 8-20 Calcium 9.7 mg/dL 8.1-9.9 Egfr Non- 99.6 >60 Egfr 128.1 >60 21 Laboratory test 09/13/2012 [facility] Amnisure Membrane [address] [place] [address] Rupture [phone] Renal Function 08/15/2012 [facility] Sodium 135 mmol/L 133- 145 Panel [place], [place] 1808517 [phone] Potassium 3.6 mmol/L 3.5-5.0 Chloride 105 mmol/L 101-111 Co2 Carbon Dioxide 24.0 mmol/L 22-32 Anion Gap 6.0 mmol/L 2-11 Glucose 104 mg/dL High 70-100 Blood Urea Nitrogen 2 mg/dL Low 6-24 Creatinine 0.50 mg/dL 0.50-1.40 BUN/Creatinine Ratio 4.0 Low 8-20 Calcium 8.6 mg/dL 8.1-9.9 Phosphorus 4.4 mg/dL 2.4-4.7 Albumin 2.6 g/dL Low 3.6-5.4 Egfr Non- 146.9 >60 Egfr 188.9 >60 23 Creatinine 08/15/2012 [facility] Urine Random 42.3 mg/[place] [address] Creatinine [phone] Creatinine 0.6 mg/dL 0.5-1.4 Creatinine Clearance 176 mL/min High 80-125 Urine Collection Time 24 Urine Total Volume 3600 mL Total Protein 24HR 08/15/2012 [facility] Urine Random Total 8 mg /[place] [address] Protein [phone] Urine Total Protein/24HR 288 mg/24Hr High 0-165 CBC Auto 08/15/2012 [facility] White Blood 10.9 10^3/uL High 4.8-10.8 [place] [address] Count [phone] Red Blood Count 4.03 10^6/uL 4.0-5.4 Hemoglobin 11.2 g/dL Low 12.0-16.0 Hematocrit 34 % Low 35-47 Mean Corpuscular Volume 84 fL 80-97 Mean Corpuscular Hemoglobin 28 pg 27-31 Mean Corpuscular HGB Conc 33 g/dL 31-36 Red Cell Distribution Width 14 % 10.5-15 Platelet Count 227 10^3/uL 150-450 Mean Platelet Volume 9 um3 7.4-10.4 Abs Neutrophils 8.5 10^3/uL High 1.5-7.7 Abs Lymphocytes 1.7 10^3/uL 1.0-4.8 Abs Monocytes 0.7 10^3/uL 0-0.8 Abs Eosinophils 0.1 10^3/uL 0-0.6 Abs Basophils 0 10^3/uL 0-0.2 Abs Nucleated RBC 0.01 10^3/uL Granulocyte % 77.8 % 38-83 Lymphocyte % 15.3 % Low 25-47 Monocyte % 6.3 % 1-9 Eosinophil % 0.5 % 0-6 Basophil % 0.1 % 0-2 Nucleated Red Blood Cells % 0 Induced 08/15/2012 [facility] Uric Acid 2.6 mg/dL 2.6-7.2 [place] [address] [phone] Liver Function 08/15/2012 [facility] Total 5.6 g/dL Low 6.2- 8.1 [place] [address] Protein [phone] Globulin 3.0 g/dL 2-4 Albumin/Globulin Ratio 0.9 Low 1-3 Total Bilirubin 0.4 mg/dL 0.4-1.5 Direct Bilirubin 0.1 mg/dL 0.1-0.5 Indirect Bilirubin 0.3 mg/dL 0.3-1.0 Alkaline Phosphatase 214 U/L High 30-110 Alt 16 U/L 14-54 Ast 19 U/L 12-42 Laboratory test 08/06/2012 [facility] Group B Strep (SEE NOTE) [address] [place] [address] Culture Screen [phone] Glucose 06/18/2012 [facility] GTT 2HR (SEE NOTE) 25 Tolerance 2HR [place] [address] Gestational Gestational [phone] CBC With No Diff 06/18/2012 [facility] White Blood 11.1 High 4.8-1 [place] [address] Count 10^3/uL 0.8 [phone] Red Blood Count 3.78 10^6/uL Low 4.0-5.4 Hemoglobin 11.2 g/dL Low 12.0-16.0 Hematocrit 34 % Low 35-47 Mean Corpuscular Volume 90 fL 80-97 Mean Corpuscular Hemoglobin 30 pg 27-31 Mean Corpuscular HGB Conc 33 g/dL 31-36 Red Cell Distribution Width 13 % 10.5-15 Platelet Count 192 10^3/uL 150-450 Mean Platelet Volume 9 um3 7.4-10.4 Laboratory test finding 03/29/2012 [facility] Rubella Immune Status 2.08 INDEX 26 Serum Integrated Screen Part 03/29/2012 [facility] Interpretation SEE BELOW 27 2 AL Risk For Ontd <1:5000 Age Risk Down Syndrome 1:850 COLBY Down Syndrome Risk 1:710 <1:270 COLBY Trisomy 18 Risk <1:5000 <1:100 Calculated Gestational Age 17.7 Afp,Serum 25.2 NG/ML Afp Mom 0.71 28 HCG,Serum 19.2 IU/mL HCG Mom 1.26 Estriol,Free 0.85 NG/ML Estriol Mom 1.14 Inhibin A,Dimeric 258 pg/mL Inhibin A Mom 1.90 Lety-A 1083 NG/ML Lety-A Mom 1.36 29 Referring Physician Name GEORGINA ARROYO Referring Physician Phone [phone] Referring Physician Npi [id number] Specimen # From Part 1 [id number] Date Of Collection Date Maternal Weight 229 LBS Est'd Date Of Delivery 09/01/2012 Mother's Ethnic Origin Insulin Depend Diabetic NO Repeat Specimen NO Number Of Fetuses 1 HX Of Neural Tube Defects NO PNL No 02/28/2012 [facility] Rubella Screen [place] [address] [phone] Hemoglobin A1c 5.4 % Less than 6.0 30 Hepatitis B Surface Antigen Nonreactive Nonreactive 31 RPR 02/28/2012 [facility] Syphilis [place] [address] [phone] RPR Nonreactive Nonreactive RPR Titer TNP Pediatric/Maternal YES CBC With No 02/28/2012 [facility] White Blood 8.2 10^3/uL 4.8 -10.8 [place] [address] Count [phone] Red Blood Count 4.37 10^6/uL 4.0-5.4 Hemoglobin 13.0 g/dL 12.0-16.0 Hematocrit 38 % 35-47 Mean Corpuscular Volume 88 fL 80-97 Mean Corpuscular Hemoglobin 30 pg 27-31 Mean Corpuscular HGB Conc 34 g/dL 31-36 Red Cell Distribution Width 14 % 10.5-15 Platelet Count 163 10^3/uL 150-450 Mean Platelet Volume 9 um3 7.4-10.4 Type And Screen 02/28/2012 [facility] Patient [place] [address] [phone] Antibody Screen NEGATIVE HIV 1/2 AB 02/28/2012 [facility] HIV 1 2 Nonreactive Nonreactive [address] [place] [address] Antibody [phone] Laboratory 02/28/2012 [facility] TSH (Thyroid 1.31 MIU/ML 0.34-5.60 test finding [place] Stimulating [phone] Horm) Free T4 0.79 NG/ML 0.61-1.24 Serum Integrated SCRN Part 1 AL 02/28/2012 [facility] Comment SEE BELOW 33 Referring Physician Name DINAJACKELYN Referring Physician Phone [phone] Referring Physician Npi [id number] Date Of 1985 Collection Date 02/28/2012 Maternal Weight 232 LBS Est'd Date Of Delivery 09/01/2012 GARRET Determined By Mother's Ethnic Origin Number Of Fetuses 1 Insulin Depend Diabetic NO Repeat Specimen NO HX Of Neural Tube Defects NO Brief History (NTD) NG Prev Down Synd NO Donor Egg NG Donor Age:Egg Retrieval NG Thyroid Autoantibodies 02/28/2012 [facility] Thyroid Peroxidase AB 80 IU/mL High <35 Thyroglobulin Antibodies < 20 IU/mL <20 GC/Chlamydia Dna 02/07/2012 [facility] GC/Chlamydia (SEE NOTE) [address] [place] [address] Rna [phone] Urine Culture 02/07/2012 [facility] Urine Culture (SEE NOTE) [address] [place] [address] Sensitivities [phone] Laboratory test 09/12/2011 [facility] Cytology [address] [place] [address] ----- <SEE [phone] NOTE> Laboratory test 02/22/2010 [facility] Cytology [address] [place] [address] ----- <SEE [phone] NOTE> Laboratory test 06/18/2009 [facility] Surgical [address] [place] [address] Pathology ----- <SEE [phone] NOTE> Laboratory test 05/29/2009 [facility] Cytology hold for 39 finding [place] [address] ----- <SEE HRHPV [phone] NOTE> Laboratory test 02/26/2009 [facility] Surgical [address] [place] [address] Pathology ----- <SEE [phone] NOTE> GC/ZHL On Thin 02/03/2009 [facility] CHL On Thin NEGATIVE Negative 41 Prep [place] [address] Prep Vial [phone] GC On Thin Prep Vial NEGATIVE Negative 42 Laboratory 02/03/2009 [facility] Cytology 43 test finding [place] [address] <SEE NOTE> [phone] HSV AB Igm 02/03/2009 [facility] HSV Igm NOT DETECTED 44 W/Reflex Titer AB,Screen HSV 1 & 2 Igg 02/03/2009 [facility] HSV 1 Igg 0.15 INDEX 45 Type Herpeselect AB HSV 2 Igg Herpeselect AB 0.07 INDEX 46 Hepatitis C AB 02/03/2009 [facility] Hepatitis C AB NON-REACTIVE Non- Reactive Signal To Cutoff Ratio 0.24 Less Than 1.0 Laboratory test 02/03/2009 [facility] HB S Ag NON-REACTIVE Non-Reactive finding W/Reflex Conf Vad 02/03/2009 [facility] Vad Final NONREACTIVE Nonreactive [address] [place] [address] [phone] Laboratory test 02/03/2009 [facility] RPR NON REACTIVE Nonreactive finding [place] [address] [phone] Laboratory test 07/23/2007 [facility] Cytology 48 [address] [place] [address] <SEE NOTE> [phone] Laboratory test 07/10/2007 [facility] Cytology 49 finding [place] [address] <SEE NOTE> [phone] GC/ZHL On Thin 07/10/2007 [facility] CHL On Thin NEGATIVE Negative 50 Prep [place] [address] Prep Vial [phone] GC On Thin Prep Vial NEGATIVE Negative 51 Vad 07/10/2007 [facility] Vad Final NONREACTIVE Nonreactive [address] [place] [address] [phone] Laboratory test 07/10/2007 [facility] RPR NON [place] [address] [phone] 1 SEE RESULT BELOW Name: OLIVERIO PRATHER : [address]: Valeri Desir MD Acct: [id number] Unit: [id number] AGE: 30 Location: [facility] Re09/27/16 SEX: F Status: REG REF SPEC: [id number] JORGE L: 09/27/16-[address] [facility] [address]: Valeri Desir MD REQ: [id number] RECD: 09/27/16-7 STATUS: SOUT _ ORDERED: TP IMAGE ANAL, HPV/Thin Prep COMMENTS: [id number] FINAL DIAGNOSIS Negative for Intraepithelial lesion or Malignancy A. Ectocervical/Endocervical Specimen Adequacy: Satisfactory of evaluation Transformation zone component not identified Patient Information: HPV: High risk HPV RNA testing regardless of pap results. Actual Specimen Date: 09/27/16 Last Menstrual Date: 09/06/16 Date of Last Specimen: 06/19/15 Date Time Test Result Flag (u) Normal Range 09/27/16 0932 HPV RNA Negative Negative The high-risk HPV types detected by the assay include: 16, 18, 31, 33, 35, 39, 45, 51, 52, 56, 58, 59, 66, and 68. Signed (signature on file) TOMAS Escudero(ASC) 09/28 1543 This Pap test was evaluated with the assistance of the uniRowPrep Test Imaging System. Due to cytologic findings at the cable maintainer microscope, comprehensive manual rescreening by a Waste Examiner may be required. The Pap Smear is a screening test designed to aid in the detection of premalignant and malignant conditions of the uterine cervix. It is not a diagnostic procedure and should not be used as the sole means of detecting cervical cancer. Both false- positive and false- negative reports do occur. Depending on your risk status, a Pap smear should be obtained and evaluated every 1-3 years. END OF REPORT * ML=Testing performed at [facility] DEPARTMENT OF PATHOLOGY, [address] [place] [address] Charles Solano M.D. Director [facility] # [id number] The high-risk HPV types detected by the assay include: 16, 18, 31, 33, 35, 39, 45, 51, 52, 56, 58, 59, 66, and 68. 3 <5.0 Negative 5.0 - 25.0 Indeterminate (Repeat testing recommended after 72 hours) >25.0 Positive Perimenopausal women can display HCG levels of up to 20 mIU/mL 4 <5.0 Negative 5.0 - 25.0 Indeterminate (Repeat testing recommended after 72 hours) >25.0 Positive Perimenopausal women can display HCG levels of up to 20 mIU/mL 5 <5.0 Negative 5.0 - 25.0 Indeterminate (Repeat testing recommended after 72 hours) >25.0 Positive Perimenopausal women can display HCG levels of up to 20 mIU/mL 6 <5.0 Negative 5.0 - 25.0 Indeterminate (Repeat testing recommended after 72 hours) >25.0 Positive Perimenopausal women can display HCG levels of up to 20 mIU/mL 7 Because ethnic data is not always readily [...] 15-29 5 Kidney failure <15 (or dialysis) 8 <5.0 Negative 5.0 - 25.0 Indeterminate (Repeat testing recommended after 72 hours) >25.0 Positive Perimenopausal women can display HCG levels of up to 20 mIU/mL 9 <5.0 Negative 5.0 - 25.0 Indeterminate (Repeat testing recommended after 72 hours) >25.0 Positive Perimenopausal women can display HCG levels of up to 20 mIU/mL 10 <5.0 Negative 5.0 - 25.0 Indeterminate (Repeat testing recommended after 72 hours) >25.0 Positive Perimenopausal women can display HCG levels of up to 20 mIU/mL 11 Female reference ranges for Progesterone: Follicular phase.......0.3 - 1.5 ng/ml Mid-luteal phase.......5.2 - 18.5 ng/ml Postmenopausal.........< 0.8 ng/ml 1st trimester.........4.7 - 50.0 ng/ml 2nd trimester.........19.4 - 45.3 ng/ml 12 under req # [id number] 13 <5.0 Negative 5.0 - 25.0 Indeterminate (Repeat testing recommended after 72 hours) >25.0 Positive Perimenopausal women can display HCG levels of up to 20 mIU/mL 14 <5.0 Negative 5.0 - 25.0 Indeterminate (Repeat testing recommended after 72 hours) >25.0 Positive Perimenopausal women can display HCG levels of up to 20 mIU/mL 15 SEE RESULT BELOW Name: OLIVERIO PRATHER : [address]: Georgina Arroyo NP Acct: [id number] Unit: [id number] AGE: 29 Location: [facility] Re06/19/15 SEX: F Status: REG REF SPEC: [id number] JORGE L: 06/19/15-[address] [facility] [address]: Georgina Arroyo ENRICHMENT TEACHER REQ: [id number] RECD: 06/22/15-1050 STATUS: SOUT _ ORDERED: IMAGE ANALYSIS, HPV/Thin Prep FINAL DIAGNOSIS Negative for Intraepithelial lesion or Malignancy A. Ectocervical/Endocervical Specimen Adequacy: Satisfactory of evaluation Transformation zone component identified Patient Information: HPV: High risk HPV RNA testing regardless of pap results. Actual Specimen Date: 06/19/15 Last Menstrual Date: 05/22/15 Date of Last Specimen: 09/12/11 ?: N Date Time Test Result Flag (u) Normal Range 06/19/15 1606 HPV RNA Negative Negative The high-risk HPV types detected by the assay include: 16, 18, 31, 33, 35, 39, 45, 51, 52, 56, 58, 59, 66, and 68. Signed (signature on file) TOMAS Garvey (ASCP) 06/22 8221 This Pap test was evaluated with the assistance of the uniRowPrep Test Imaging System. Due to cytologic findings at the cable maintainer microscope, comprehensive manual rescreening by a Waste Examiner may be required. The Pap Smear is a screening test designed to aid in the detection of premalignant and malignant conditions of the uterine cervix. It is not a diagnostic procedure and should not be used as the sole means of detecting cervical cancer. Both false- positive and false- negative reports do occur. Depending on your risk status, a Pap smear should be obtained and evaluated every 1-3 years. END OF REPORT * ML=Testing performed at Main Lab DEPARTMENT OF PATHOLOGY, [facility] [employer] [place] [address] Charles Solano M.D. Director [facility] # [id number] 16 The high-risk HPV types detected by the assay include: 16, 18, 31, 33, 35, 39, 45, 51, 52, 56, 58, 59, 66, and 68. 17 <5.0 Negative 5.0 - 25.0 Indeterminate >25.0 Positive 18 <5.0 Negative 5.0 - 25.0 Indeterminate >25.0 Positive 19 RUN DATE: 04/03/14 [facility] LAB LIVE PAGE 1 RUN TIME: 1203 [facility] [employer] [place], [place] [address] Specimen Inquiry Name: OLIVERIO PRATHER : [address]: Georgina Arroyo NP Acct: [id number] Unit: [id number] AGE: 28 Location: [facility] Re03/31/14 SEX: F Status: REG REF SPEC: [id number] JORGE L: 03/31/14-[address] [facility] [address]: Georgina Arroyo NP REQ: [id number] RECD: 04/01/14 STATUS: COMP _ SOURCE: URINE SPDESC: ORDERED: Urine Culture QUERIES: Medent Number [id number] Procedure Result Verified Site Urine Culture Final 04/03/14- 1203 ML Organism 1 NORMAL SHAKIR [place] Count 10-25,000 (Moderate) CFU/ML END OF REPORT * ML=Testing performed at Main Lab DEPARTMENT OF PATHOLOGY, [address] [place] [address] Charles Solano M.D. Director [facility] # [id number] Cytology Laboratory [address] [place] [address], [address] [place] [address] CYTOLOGY REPORT Name: Oliverio Prather : 1985 (Age: 27) Sex: F Location: [facility] GYN [facility] # [id number] Date Collected: 03/15/2013 Billing #: [id number] Date Received: 03/15/2013 Requisition # [id number] Physician(s): VIVEK HAYDEN Source of Specimen: ENDOCERVICAL/ECTOCERVICAL THIN PREP Clinical Information: Date of Last Menstrual Period: None Provided Menstrual History: : 12/01/12 Dysplasia/Cancer History: Dysplasia Treatment History: Colposcopy & Biopsy Specimen Adequacy: SATISFACTORY FOR EVALUATION. NO ENDOCERVICAL/TRANSFORMATION ZONE. General Categorization: NEGATIVE FOR INTRAEPITHELIAL LESION OR MALIGNANCY. lar Electronic Signature TOMAS Mancia (ASCP) Reported: 03/19/2013 Also seen by :TOMAS Huggins (ASC) [employer] [facility] HPV High Risk Date Ordered: 03/15/2013 Status: Signed Out Date Reported: 03/19/2013 High Risk NEGATIVE (HPV types 16, 18, 31, 33, 35, 39, 45, 51, 52, 56, 58, 59, 66, 68) Cervista HPV HR Electronic Signature TOMAS Garcia (ASCP) [employer] [facility] ICD-9 Code(s) V76.2 V13.22 21 Because ethnic data is not always readily [...] 15-29 5 Kidney failure <15 (or dialysis) 22 Membrane Rupture 23 Because ethnic data is not always readily [...] 15-29 5 Kidney failure <15 (or dialysis) 24 RUN DATE: 08/09/12 [facility] LAB LIVE PAGE 1 RUN TIME: [address] [place] [address] Specimen Inquiry Name: OLIVERIO QUEZADA : [address]: Erika Hauser [facility] Acct: [id number] Unit: [id number] AGE: 26 Location: [facility] Re08/06/12 SEX: F Status: REG REF SPEC: [id number] JORGE L: 08/06/12-[address]: Erika Hauser [facility] REQ: [id number] RECD: 08/07/12 STATUS: COMP _ SOURCE: VAG/REC SPDESC: ORDERED: Lizett Mark QUERIES: Medent Number [id number] Procedure Result Verified Site Group B Strep Culture Screen Final 08/09/12- 0948 ML Organism 1 STREP GROUP B Susceptibility testing of penicillins and other B-lactams approved by FDA for treatment of Streptococcus pyogenes (Group A Strep) and Streptococcus agalactiae (Group B Strep) is not necessary for clinical purposes and need not be done routinely, since as with vancomycin, resistant strains have not been recognized. (CLSI E658-R20;p.66) Positive isolates will be saved for one week. Please call the Microbiology Laboratory if further susceptibility testing is needed. END OF REPORT * ML=Testing performed at Main Lab DEPARTMENT OF PATHOLOGY, [address] [place] [address] Charles Solano M.D. Director [facility] Permit #[id number] GLU Fast 87 Col: 06/18/12 0803 GLU 1HR 145 Col: 06/18/12 0903 GLU 2HR 98 Col: 06/18/12 1003 GTT Interp Col: 06/18/12 0803 Gestational Diabetes Diagnostic: OGTT Glucose Load: samples drawn after 75-gram glucose drink Target Levels: Fasting <92 mg/dl 1hr <180 mg/dl 2hr <153 mg/dl If ONE or more values meet or exceed the target level, gestational diabetes is diagnosed. 26 INDEX VALUE RESULTS INTERPRETATION ------- < OR=0.90 NEGATIVE NO RUBELLA IGG ANTIBODY DETECTED 0.91 - 1.09 EQUIVOCAL PRESENCE OR ABSENCE OF RUBELLA IGG ANTIBODY CANNOT BE DISCERNED > OR=1.10 POSITIVE RUBELLA IGG ANTIBODY DETECTED THE PRESENCE OF RUBELLA IGG ANTIBODY SUGGESTS IMMUNIZATION OR PAST OR CURRENT INFECTION WITH RUBELLA VIRUS. 27 SCREEN NEGATIVE FOR OPEN NTD, DOWN SYNDROME AND TRISOMY 18 28 Reference Range: <2.50 IDD <1.90 TWINS <4.00 TWINS IDD <3.50 TRIPLETS <4.50 29 The Serum Integrated Screen combines LETY-A in the first trimester with AFP, unconjugated estriol, intact hCG and Inhibin A in the second trimester. This provides a useful screening test for detection of open neural tube defects, Down syndrome and Trisomy 18. It should be noted that normal results can never guarantee the of a normal baby and that 2 to 3 percent of newborns have some type of physical or mental defect, many of which are undetectable through any known diagnostic technique. Interpretation reviewed by: Barbara Jackson, Ph.D., [facility]. This is a screening test, not a diagnostic test. This risk assessment is based on demographic data provided by the ordering physician. Please notify the laboratory promptly if any data are incorrect. If you have questions concerning this report: For clinical consultation, call ; For technical questions, call ext [phone]; For recalculations, fax to . This test was developed and its performance characteristics have been determined by [facility]. Performance characteristics refer to the analytical performance of the test. 30 Therapeutic target for the treatment of diabetes Mellitus patients is <7% HBA1C, and in selective patients <6.0%.Please refer to [place] [employer] Diabetic care guidelines for further information. 31 YES 32 It is recognized that currently available assays for the detection of antibodies to HIV-1 and/or HIV-2 may not detect all infected individuals. HIV antibodies may be undetectable in some stages of the infection and in some clinical conditions. The performance of this assay has not been established for populations of infants or children. Assayed by Chemiluminescence Microparticle Immunoassay on the Siemens Advia Centaur CP. Values obtained with different methods or kits cannot be used interchangeably.The diagnostic specificity of the ADVIA Centaur 1/O/2 Enhanced assay in the low risk population was 99.90% (6052/6058) with a 95% confidence interval of 99.78 to 99.96%. 33 Thank you for submitting this patients Part 1 specimen. Please submit her Part 2 specimen between 03/10/2012-05/04/2012 (15.0 and 22.9 weeks gestation) with 03/10/2012-03/23/2012 (15.0 and 16.9 weeks gestation) being optimal. When submitting Part 2, please include the following Specimen # from Part 1: [id number] If you have questions concerning this report: For clinical consultation, call ; For technical questions, call ext [phone]; For recalculations, fax to . This test was developed and its performance characteristics have been determined by [facility]. Performance characteristics refer to the analytical performance of the test. 34 RUN DATE: 02/10/12 [facility] LAB LIVE PAGE 1 RUN TIME: [address] [place] [address] Specimen Inquiry Name: OLIVERIO QUEZADA : [address]: Georgina Arroyo NP Acct: [id number] Unit: [id number] AGE: 26 Location: [facility] Re02/07/12 SEX: F Status: REG REF SPEC: [id number] JORGE L: 02/07/12-[address]: Georgina Arroyo NP REQ: [id number] RECD: 02/08/12 STATUS: COMP _ SOURCE: ENDOCERVIX SPDESC: ORDERED: GC/Chlam RNA QUERIES: Medent Number [id number] Procedure Result Verified Site Chlamydia Trachomatis RNA Final 02/10/12- 1411 ML NEGATIVE for Chlamydia trachomatis rRNA GC (N. gonorrhoeae) RNA Final 02/10/12- 1411 ML NEGATIVE for Neisseria gonorrhoeae rRNA A negative result does not preclude the presence of a C. trachomatis or N. gonorrhoeae infection because results are dependent on adequate specimen collection, absence of inhibitors, and sufficient rRNA to be detected. Test results may be affected by improper specimen collection, improper storage, technical error, or specimen mixup. Limitations of the Procedure: The Aptima Combo 2 Assay is not intended for the evaluation of suspected sexual abuse or for other medico-legal indications. For those patients for whom a false positive result may have adverse psychosocial impact, the [facility] recommends retesting by a method using an alternate technology. Therapeutic failure or success cannot be determined with the Aptima Combo 2 Assay since nucleic acid may persist following appropriate antimicrobial therapy. Results from the Aptima Combo 2 Assay should be interpreted in conjunction with other laboratory and clinical data available to the clinican. CONTINUED ON NEXT PAGE * ML=Testing performed at Main Lab DEPARTMENT OF PATHOLOGY, [facility] [employer] [place] [id number] Charles Solano M.D. Director [facility] Permit #[id number] RUN DATE: 02/10/12 [facility] LAB LIVE PAGE 2 RUN TIME: 1411 [facility] [employer] [place], [place] [address] Specimen Inquiry Patient: OLIVERIO QUEZADA [id number] (Continued) Specimen: [id number] Collected: 02/07/12-1531 Received: 02/08/12 (Continued) Procedure Result Verified Site GC (N. gonorrhoeae) RNA Final (continued) 02/10/12 141 Performance characteristics for detecting C. trachomatis and N. gonorrhoeae are derived from high prevalence populations. Positive results in low prevalence populations should be interpreted carefully with the understanding that the likelihood of a false positive may be higher than a true positive. END OF REPORT * ML=Testing performed at Main Lab DEPARTMENT OF PATHOLOGY, [address] [place] [address] Charles Solano M.D. Director [facility] Permit #[id number] RUN DATE: 02/09/12 [facility] LAB LIVE PAGE 1 RUN TIME: 1035 [address] [place], [place] [address] Specimen Inquiry Name: OLIVERIO QUEZADA : [address]: Georgina Arroyo NP Acct: [id number] Unit: [id number] AGE: 26 Location: [facility] Re02/07/12 SEX: F Status: REG REF SPEC: [id number] JORGE L: 02/07/12-[address]: Georgina Arroyo NP REQ: [id number] RECD: 02/07/12632 STATUS: COMP _ SOURCE: URINE SPDESC: ORDERED: Urine Culture QUERIES: Medent Number [id number] Procedure Result Verified Site Urine Culture Final 02/09/12- 1034 ML Organism 1 NORMAL SHAKIR [place] Count 10-25,000 (Moderate) CFU/ML END OF REPORT * ML=Testing performed at Main Lab DEPARTMENT OF PATHOLOGY, [address] [place] [address] Charles Solano M.D. [facility] Permit #[id number] 36 ---- RUN DATE: 09/13/11 [facility] NMI LIVE PAGE 1 RUN TIME: 1152 Specimen Inquiry RUN USER: INTERFACE -- Name: DAMIENOLIVERIO Status: REG REF Re09/12/11 Age/Sex: 25/F Unit#: [id number] Location: [facility] : [birth year] -- Specimen: [id number] SOUT Spec Date:09/12/11-[address]: Georgina Arroyo NP Spec Type: CYTOLOGY Received:09/13/11 Copies to: SOURCE ECTOCERVICAL/ENDOCERVICAL Thin Prep with Reflex HPV Test PATIENT INFORMATION ACTUAL COLLECTION DATE: 09/12/11 ? No POST MENOPAUSAL? No HYSTERECTOMY? No LAST MENSTRUAL PERIOD: 08/18/11 DATE OF PRIOR SPECIMEN: 02/22/10 ADEQUACY OF SPECIMEN Satisfactory for evaluation * Transformation zone component identified * DIAGNOSIS NEGATIVE FOR INTRAEPITHELIAL LESION OR MALIGNANCY * This Pap test was evaluated with the assistance of the uniRowPrep Pap Test Imaging System. The Pap Smear is a screening test designed to aid in the detection of premalign ant and malignant conditions of the uterine cervix. It is not a diagnostic procedure a nd should not be used as the sole means of detecting cervical cancer. Both false- positiv e and false-negative reports do occur. Depending on your risk status, a Pap smear johnny uld be obtained and evaluated every one to three years. Initial evaluation performed by [facility]) 09/13/11 Final Interpretation electronically signed by: Reno ABEL(ASCP) 09/13/11 1151 -- -- DEPARTMENT OF PATHOLOGY, [address] [place] [address] [facility] Permit #[id number] Brea Lopez M.D. Teacher Dramatics Dir verito -- 37 ---- RUN DATE: 02/23/10 [facility] NMI LIVE PAGE 1 RUN TIME: 8807 Specimen Inquiry RUN USER: INTERFACE -- Name: OLIVERIO QUEZADA Status: REG REF Re02/22/10 Age/Sex: 24/F Unit#: [id number] [facility] [birth year] -- Specimen: [id number] SOUT Spec Date: 02/22/[address]: Mellisa merida MD Spec Type: CYTOLOGY Received: 02/23/10-1239 Copies to: SOURCE ECTOCERVICAL/ENDOCERVICAL Thin Prep with Reflex HPV Test PATIENT INFORMATION ACTUAL COLLECTION DATE: 02/22/10 ? No POST MENOPAUSAL? No HYSTERECTOMY? No LAST MENSTRUAL PERIOD: 02/13/10 DATE OF PRIOR SPECIMEN: 02/03/09 ADEQUACY OF SPECIMEN Satisfactory for evaluation * Transformation zone component identified * DIAGNOSIS NEGATIVE FOR INTRAEPITHELIAL LESION OR MALIGNANCY * This Pap test was evaluated with the assistance of the ThinPrep Pap Test Imaging System. The Pap Smear is a screening test designed to aid in the detection of premalign ant and malignant conditions of the uterine cervix. It is not a diagnostic procedure a nd should not be used as the sole means of detecting cervical cancer. Both false- positiv e and false-negative reports do occur. Depending on your risk status, a Pap smear johnny uld be obtained and evaluated every one to three years. Final Interpretation electronically signed by: Jayna COLIN CT(ASCP) 02/23/10 143 7 -- -- DEPARTMENT OF PATHOLOGY, [address] [place] [address] [facility] Permit #[id number] Brea Lopez M.D. Teacher Dram[employer] verito -- 38 ---- RUN DATE: 06/19/09 [facility] NMI LIVE PAGE 1 RUN TIME: 1249 Specimen Inquiry RUN USER: INTERFACE -- Name: OLIVERIO QUEZADA Status: REG REF Re06/18/09 Age/Sex: 23/F Unit#: [id number] Location: [facility]. : [birth year] -- Specimen: [id number] SOUT Spec Date: 06/18/[address] [facility] [address]: Mellisa merida MD Spec Type: SURGICAL P Received: 06/18/09-1348 Copies to: SPECIMEN VULVAR SKIN TAG HISTORY PRE-OP DIAGNOSIS: Skin tag removal. GROSS DESCRIPTION Specimen received in formalin labelled Oliverio Quezada, Vulvar Biopsy and consists of one fragment of everett-white tissue measuring 0.4 x 0.3 x 0.2 cm. Submitted entirely, one cassette. DIAGNOSIS Vulva, biopsy: Fibroepithelial polyp. Signed Electronically by: PEEWEE POLANCO 06/19/09 1244 -- -- DEPARTMENT OF PATHOLOGY, [address] [place] [address] [facility] Permit #[id number] Charles Solano M.D. Director Peewee Polanco M.D. Teacher Dram[employer] Dir verito -- 39 ---- RUN DATE: 06/03/09 [facility] NMI LIVE PAGE 1 RUN TIME: 1619 Specimen Inquiry RUN USER: INTERFACE -- Name: OLIVERIO QUEZADA Status: REG REF Re05/29/09 Age/Sex: 23/F Unit#: [id number] Location: [facility] : [birth year] -- Specimen: [id number] SOUT Spec Date: 05/29/[address]: Yessenia Garcia [facility] Spec Type: CYTOLOGY Received: 06/01/09-0920 Copies to: SOURCE ECTOCERVICAL/ENDOCERVICAL Thin Prep with Reflex HPV Test PATIENT INFORMATION ACTUAL COLLECTION DATE: 05/29/09 PREVIOUS ABNORMAL PAP SMEARS Yes If YES, diagnosis: Low grade squamous intraepithelial lesion. LAST MENSTRUAL PERIOD: 05/14/09 DATE OF PRIOR SPECIMEN: 02/03/09 PATIENT HISTORY: + Human papilloma virus. ADEQUACY OF SPECIMEN Satisfactory for evaluation * Transformation zone component identified * DIAGNOSIS NEGATIVE FOR INTRAEPITHELIAL LESION OR MALIGNANCY * NOTE [place] high risk HPV DNA testing on 06/01/09 at 1600 by [facility]. Results will be reported separately in an addendum. ADDENDUM Addendum #1 Entered: 06/03/09-4189 [facility] Human Papilloma Virus test results received with preparation and diagnosis completed [place]. Results: NEGATIVE High Risk (HPV types 16, 18, 31, 33, 35, 39, 45, 51, 52, 56, 58, 59, 68) -- DEPARTMENT OF PATHOLOGY, [address] [place] [address] [facility] Permit #[id number] Charles Solano M.D. Director Peewee Polanco M.D. Teacher Dramatics Dir verito -- -- RUN DATE: 06/03/09 [facility] NMI LIVE PAGE 2 RUN TIME: 0416 Specimen Inquiry RUN USER: INTERFACE -- Name: DEBRA QUEZADABERLY Status: REG REF Re05/29/09 Age/Sex: 23/F Unit#: [id number] Location: [facility] : 81 -- -- CONTINUED -- ADDENDUM (Continued) Addendum Review Jayna COLIN([facility]) 06/03/09 -- This Pap test was evaluated with the assistance of the uniRowPrep Pap Test Imaging System. The Pap Smear is a screening test designed to aid in the detection of premalign ant and malignant conditions of the uterine cervix. It is not a diagnostic procedure a nd should not be used as the sole means of detecting cervical cancer. Both false- positiv e and false-negative reports do occur. Depending on your risk status, a Pap smear johnny uld be obtained and evaluated every one to three years. Initial evaluation performed by Reno ABEL([facility]) 06/01/09 Final Interpretation electronically signed by: Reno ABEL([facility]) 06/01/09 1415 -- -- DEPARTMENT OF PATHOLOGY, [address] [place] [address] [facility] Permit #[id number] Charles Solano M.D. Director Peewee Polanco M.D. Teacher Dram[employer] Dir verito -- 40 ---- RUN DATE: 03/02/09 [facility] NMI LIVE PAGE 1 RUN TIME: 140 Specimen Inquiry RUN USER: INTERFACE -- Name: OLIVERIO QUEZADA Acceloise#: [id number] Status: REG REF Re02/26/09 Age/Sex: 23/F Unit#: [id number] Location: [facility] : [birth year] -- Specimen: [id number] SOUT Spec Date: 02/26/[address]: Mellisa merida MD Spec Type: SURGICAL P Received: 02/27/09-1301 Copies to: CYTOLOGY SPECIMEN 1) CERVICAL BIOPSY 2) ENDOCERVICAL CURETTINGS HISTORY PRE-OP DIAGNOSIS: Dysplasia GROSS DESCRIPTION 1) Specimen received in formalin labelled Oliverio Damien, Cervical Biopsy and consists of several fragments of everett-white tissue measuring in aggregate 0.6 x 0.5 x 0.3 cm. Specimen is filtered and submitted entirely, one cassette labelled one. 2) Specimen received in formalin labelled Oliverio Damien, ECC and consists of several fragments of mucoid tissue measuring in aggregate 1.0 x 0.5 x 0.3 cm. Specimen is filtered and submitted entirely, one cassette labelled two. DIAGNOSIS 1) Uterus, cervix, biopsy: A) Benign squamous mucosa. B) No dysplasia identified. 2) Uterus, endocervix, curettage: A) Benign endocervical glandular epithelium and immature squamous metaplasia. B) No dysplasia is identified. Signed Electronically by: CHARLES SOLANO MD 03/02/09 1407 -- -- DEPARTMENT OF PATHOLOGY, [address] [place] [address] [facility] Permit #[id number] Charles Solano M.D. Director Peewee Polanco M.D. Teacher Dram[employer] Dir verito -- 41 . A negative result does not preclude the presence of a C.trachomatis or N.gonorrhoeae infection because results are dependent on adequate specimen collection, absence of inhibitors, and sufficient rRNA to be detected. Test results may be affected by improper specimen collection, improper specimen storage, technical error, or specimen mixup. . 42 . A negative result does not preclude the presence of a C.trachomatis or N.gonorrhoeae infection because results are dependent on adequate specimen collection, absence of inhibitors, and sufficient rRNA to be detected. Test results may be affected by improper specimen collection, improper specimen storage, technical error, or specimen mixup. . 43 ---- RUN DATE: 02/04/09 [facility] NMI LIVE PAGE 1 RUN TIME: 1331 Specimen Inquiry RUN USER: INTERFACE -- Name: OLIVERIO QUEZADA Kiki#: [id number] Status: REG REF Re02/03/09 Age/Sex: 23/F Unit#: [id number] Location: [facility] : 83 -- Specimen: [id number] SOUT Spec Date: 02/03/[address]: Mellisa merida MD Spec Type: CYTOLOGY Received: 02/04/09-1107 Copies to: SOURCE ECTOCERVICAL/ENDOCERVICAL Thin Prep with Reflex HPV Test PATIENT INFORMATION ACTUAL COLLECTION DATE: 02/03/09 PREVIOUS ABNORMAL PAP SMEARS Yes DATE OF PRIOR SPECIMEN: 07/13/07 PATIENT HISTORY: Atypical Squamous cells of undetermined significance Last menstrual period not given. ADEQUACY OF SPECIMEN Satisfactory for evaluation * Transformation zone component identified * DIAGNOSIS Shift in shakir suggestive of bacterial vaginosis * EPITHELIAL CELL ABNORMALITIES * Low grade squamous intraepithelial lesion (LSIL) encompassing: * HPV/mild dysplasia/ECTOR 1 * SUGGESTIONS Consider colposcopy, if clinically indicated * This Pap test was evaluated with the assistance of the uniRowPrep Pap Test Imaging System. Due to cytologic findings at the cable maintainer microscope, comprehensive manual rescreening by a Waste Examiner was required. The Pap Smear is a screening test designed to aid in the detection of premalign ant and malignant conditions of the uterine cervix. It is not a diagnostic procedure a nd should not be used as the sole means of detecting cervical cancer. Both false- positiv e and false-negative reports do occur. Depending on your risk status, a Pap smear johnny uld be -- DEPARTMENT OF PATHOLOGY, [address] [place] [address] [facility] Permit #[id number] Charles Solano M.D. Director Peewee Polanco M.D. Teacher Dramatics Dir verito -- -- RUN DATE: 02/04/09 [facility] NMI LIVE PAGE 2 RUN TIME: 3372 Specimen Inquiry RUN USER: INTERFACE -- Name: OLIVERIO QUEZADA Acceloise#: [id number] Status: REG REF Re02/03/09 Age/Sex: 23/F Unit#: [id number] Location: [facility] : 83 -- -- CONTINUED -- (Continued) obtained and evaluated every one to three years. Initial evaluation performed by Jayna COLIN([facility]) 02/04/09 Final Interpretation electronically signed by: PEEWEE POLANCO 02/04/09 1331 -- -- DEPARTMENT OF PATHOLOGY, [address] [place] [address] [facility] Permit #[id number] Charles Solaon M.D. Director Peewee Polanco M.D. Teacher Dramatics Dir verito -- 44 Reference range: NOT DETECTED 45 INDEX INTERPRETATION ----- LESS THAN 0.90 NEGATIVE FOR ANTIBODIES TO HSV-1 IGG 0.90 - 1.10 EQUIVOCAL GREATER THAN 1.10 POSITIVE THIS ASSAY IS TYPE SPECIFIC AND WILL DIFFERENTIATE BETWEEN HSV-1 AND HSV-2 INFECTIONS. A SINGLE POSITIVE RESULT ONLY INDICATES PREVIOUS IMMUNOLOGIC EXPOSURE AND THE LEVEL OF ANTIBODY RESPONSE MAY NOT BE USED TO DETERMINE ACTIVE INFECTION OR DISEASE STAGE. THE TEST SHOULD BE REPEATED IN 4-6 WEEKS WHEN NEGATIVE OR EQUIVOCAL RESULTS ARE OBTAINED IN SUSPECTED EARLY HERPES SIMPLEX DISEASE. THE PERFORMANCE OF THIS ASSAY HAS NOT BEEN ESTABLISHED FOR PEDIATRIC POPULATIONS, FOR SCREENING, OR FOR THE TESTING OF IMMUNOCOMPROMISED PATIENTS. 46 INDEX INTERPRETATION ----- LESS THAN 0.90 NEGATIVE FOR ANTIBODIES TO HSV-2 IGG 0.90 - 1.10 EQUIVOCAL GREATER THAN 1.10 POSITIVE THIS ASSAY IS TYPE SPECIFIC AND WILL DIFFERENTIATE BETWEEN HSV-1 AND HSV-2 INFECTIONS. A SINGLE POSITIVE RESULT ONLY INDICATES PREVIOUS IMMUNOLOGIC EXPOSURE AND THE LEVEL OF ANTIBODY RESPONSE MAY NOT BE USED TO DETERMINE ACTIVE INFECTION OR DISEASE STAGE. THE TEST SHOULD BE REPEATED IN 4-6 WEEKS WHEN NEGATIVE OR EQUIVOCAL RESULTS ARE OBTAINED IN SUSPECTED EARLY HERPES SIMPLEX DISEASE. THE PERFORMANCE OF THIS ASSAY HAS NOT BEEN ESTABLISHED FOR PEDIATRIC POPULATIONS, FOR SCREENING, OR FOR THE TESTING OF IMMUNOCOMPROMISED PATIENTS. 47 FINAL INTERPRETATION: No HIV antibody is detected. . This information has been disclosed to you from confidential records which are protected by [place] State law. State law prohibits you from making further disclosure of this information without the specific written consent of the person to whom it pertains, or as otherwise permitted by law. Any unauthorized further disclosure in violation of state law may result in a fine or senior living sentence or both. General authorization for the release of medical or other information is not, except in limited circumstances set forth in Part 63, Title 10, of [facility], sufficient authorization for further disclosure. Disclosure of confidential HIV information that occurs as the result of a general authorization for the release of medical or other information will be in violation of the state law and may result in a fine or a senior living sentence. . 48 ---- RUN DATE: 07/27/07 [facility] NMI LIVE PAGE 1 RUN TIME: 1447 Specimen Inquiry RUN USER: INTERFACE -- Name: OLIVERIO QUEZADA Status: REG REF Re07/23/07 Age/Sex: 21/F Unit#: [id number] [facility] -- Specimen: [id number] SOUT Spec Date: 07/23/[address]: Yessenia Garcia mp RADIO/TV TECHNICIAN Spec Type: CYTOLOGY Received: 07/24/07 Copies to: SOURCE ECTOCERVICAL/ENDOCERVICAL Thin Prep with Reflex HPV Test PATIENT INFORMATION ACTUAL COLLECTION DATE: 07/23/07 LAST MENSTRUAL PERIOD: 07/10/07 DATE OF PRIOR SPECIMEN: 07/15/07 PATIENT HISTORY: Prior no T-zone ADEQUACY OF SPECIMEN Satisfactory for evaluation * Transformation zone component identified * DIAGNOSIS EPITHELIAL CELL ABNORMALITIES * Squamous cell * Atypical squamous cells * Of undetermined significance (ASC-US) * [facility] [facility] HPV DNA testing on 07/24/07 at 1600 by DB. ADDENDUM Addendum #1 Entered: 07/27/07-1445 [facility] Human Papilloma Virus test results received with preparation and diagnosis completed by [facility], [place], [place]. Results: NEGATIVE High Risk (HPV types 16, 18, 31, 33, 35, 39, 45, 51, 52, 56, 58, 59, 68) -- DEPARTMENT OF PATHOLOGY, [address] [place] [address] [facility] Permit #[id number] Charles Solano M.D. Director of Laboratories -- -- RUN DATE: 07/27/07 [facility] NMI LIVE PAGE 2 RUN TIME: 1447 Specimen Inquiry RUN USER: INTERFACE -- Name: OLIVERIO QUEZADA Status: REG REF Re07/23/07 Age/Sex: 21/F Unit#: [id number] Location: [facility] : 83 -- -- CONTINUED -- ADDENDUM (Continued) (Original consultation report to follow). Addendum Review Jayna COLIN([facility]) 07/27/07 -- This Pap test was evaluated with the assistance of the uniRowPrep Pap Test Imaging System. Due to cytologic findings at the cable maintainer microscope, comprehensive manual rescreening by a Waste Examiner was required. The Pap Smear is a screening test designed to aid in the detection of premalign ant and malignant conditions of the uterine cervix. It is not a diagnostic procedure a nd should not be used as the sole means of detecting cervical cancer. Both false- positive and false-negative reports do occur. Depending on your risk status, a Pap smear johnny uld be obtained and evaluated every one to three years. Initial evaluation performed by Jayna COLIN([facility]) 07/24/07 Final Interpretation electronically signed by: CHARLES SOLANO MD 07/24/07 13 13 -- -- DEPARTMENT OF PATHOLOGY, [address] [place] [address] [facility] Permit #[id number] Charles Solano M.D. Director of Laboratories -- 49 ---- RUN DATE: 07/13/07 [facility] NMI LIVE PAGE 1 RUN TIME: 1215 Specimen Inquiry RUN USER: INTERFACE [id number] OLIVERIO QUEZADA <REG REF 07/09> ([id number]) Yessenia Galvez CNP -- Specimen: [id number] SOUT Spec Date: 07/10/[address]: Yessenia Garcia mp RADIO/TV TECHNICIAN Spec Type: CYTOLOGY Received: 07/11/07 Copies to: SOURCE ECTOCERVICAL/ENDOCERVICAL Thin Prep with Reflex HPV Test PATIENT INFORMATION ACTUAL COLLECTION DATE: 07/10/07 LAST MENSTRUAL PERIOD: 07/09/07 PATIENT HISTORY: Prior Elsewhere ADEQUACY OF SPECIMEN Unsatisfactory for evaluation * Specimen processed and examined, but unsatisfactory for evaluation of epi thelial * abnormality due to: * Predominance of red blood cells * Insufficient epithelial component * SEE NOTE DIAGNOSIS Please repeat. NOTE BLOODY SPECIMEN. CELLULARITY IS LOW AND CONSISTS PREDOMINANTLY OF ENDOMETRIUM AND SOME ENDOCERVICAL CELLS. SQUAMOUS CELL COMPONENT IS VERY SCANT AND BELOW [place] SYSTEM ADEQUACY CRITERIA. THIN PREP PREPARATION WAS REPEATED TO ENSURE ACCURATE SAMPLING. This Pap test was evaluated with the assistance of the uniRowPrep Pap Test Imaging System. The Pap Smear is a screening test designed to aid in the detection of premalign ant and malignant conditions of the uterine cervix. It is not a diagnostic procedure a nd should not be used as the sole means of detecting cervical cancer. Both false- positive and false-negative reports do occur. Depending on your risk status, a Pap smear johnny uld be obtained and evaluated every one to three years. Initial evaluation performed by [place] ABEL([facility]) 07/12/07 -- DEPARTMENT OF PATHOLOGY, [address] [place] [address] [facility] Permit #[id number] Charles Solano M.D. Director of Laboratories -- -- RUN DATE: 07/13/07 [facility] NMI LIVE PAGE 2 RUN TIME: 1215 Specimen Inquiry RUN USER: INTERFACE -- SPEC #: [id number] PATIENT: OLIVERIO QUEZADA #[id number] (Continued) -- Final Interpretation electronically signed by: CHARLES SOLANO MD 07/13/0703 24 -- -- DEPARTMENT OF PATHOLOGY, [address] [place] [address] [facility] Permit #[id number] Charles Solano M.D. Director of Laboratories -- 50 . A negative result does not preclude the presence of a C.trachomatis or N.gonorrhoeae infection because results are dependent on adequate specimen collection, absence of inhibitors, and sufficient rRNA to be detected. Test results may be affected by improper specimen collection, improper specimen storage, technical error, or specimen mixup. . 51 . A negative result does not preclude the presence of a C.trachomatis or N.gonorrhoeae infection because results are dependent on adequate specimen collection, absence of inhibitors, and sufficient rRNA to be detected. Test results may be affected by improper specimen collection, improper specimen storage, technical error, or specimen mixup. . 52 FINAL INTERPRETATION: No HIV antibody is detected. . This information has been disclosed to you from confidential records which are protected by [facility] law. State law prohibits you from making further disclosure of this information without the specific written consent of the person to whom it pertains, or as otherwise permitted by law. Any unauthorized further disclosure in violation of state law may result in a fine or senior living sentence or both. General authorization for the release of medical or other information is not, except in limited circumstances set forth in Part 63, Title 10, of [facility], sufficient authorization for further disclosure. Disclosure of confidential HIV information that occurs as the result of a general authorization for the release of medical or other information will be in violation of the state law and may result in a fine or a senior living sentence. . Procedures Date Code Description Status 11/02/2017 [id number] Mammogram Completed 07/01/2015 11785 Injection Intramuscular Or Subcutaneous Completed 06/24/2015 39817 Echography Transvaginal Completed 03/31/2014 00894 OB Ultrasound First Trimester Completed 09/14/2012 46481 Obstetric Care Routine Completed 09/11/2012 26366 Echography Uterus Limited Completed 09/11/2012 94862 Non-Stress Test Completed 08/06/2012 19117 Echography Uterus Follow-Up Or Repeat Completed 07/06/2012 02090 Echography Uterus Follow-Up Or Repeat Completed 04/27/2012 66923 Echography Uterus Complete Completed 02/28/2012 59886 Injection Intramuscular Or Subcutaneous Completed 02/28/2012 12129 OB Ultrasound First Trimester Completed 11/16/2009 61075 Injection Intramuscular Or Subcutaneous Completed 06/18/2009 97562 Biopsy Cervix Completed 02/26/2009 21698 Colposcopy W/Biopsy Cervix/Endocervical Curettage Completed 07/23/2007 69026 Echography Transvaginal Completed 07/23/2007 93788 Echography Transvaginal Completed Encounters Type Date Location Provider Dx Diagnosis Office Visit 07/10/2018 [facility] Yessenia Jump, ANP-C N93.9 Abnormal uterine and 1:20p vaginal bleeding, unspecified Office Visit 10/12/2017 [facility] Yessenia Rinaldi, ANP-C Z01.419 Encntr for urogynecology physician exam 9:00a (general) (routine) w/o abn findings N64.59 Other signs and symptoms in breast Office Visit 09/27/2016 8:00a [facility] Valeri Z01.419 Encntr for urogynecology physician exam MD Thang (general) (routine) w/o abn findings Office Visit 07/01/2015 9:00a [facility] Opal Aldridge, O00.9 Ectopic , M.D. unspecified Office Visit 06/30/2015 11:00a [facility] Yessenia Rinaldi, O36.80x0 w ANP-C inconclusive viability, unsp Office Visit 06/24/2015 9:40a [facility] Yessenia Rinaldi, O20.8 Other hemorrhage in ANP-C early Office Visit 06/19/2015 3:30p [facility] Georgina Arroyo, N91.2 Amenorrhea, ENRICHMENT TEACHER unspecified Z01.419 Encntr for urogynecology physician exam (general) (routine) w/o abn findings Office Visit 04/15/2014 8:30a [facility] Georgina Arroyo, v23.87 ENRICHMENT TEACHER W/Inconclusive Viabilty 632 Missed Office Visit 03/31/2014 3:00p [facility] Georgina Arroyo, ENRICHMENT TEACHER v28.9 Screening Unspec 646.83 Complication Spec Other Antepartum Cond Or Compl Office Visit 03/15/2013 10:00a [facility] Georgina Arroyo, V72.31 Routine Survey Supervisor ENRICHMENT TEACHER Examination V76.2 Screening Malignant Neoplasm Cervix Office Visit 09/12/2011 1:00p [facility] Georgina Arroyo, V72.31 Routine Survey Supervisor ENRICHMENT TEACHER Examination V76.2 Screening Malignant Neoplasm Cervix V25.41 Contraceptive Pill Surveillance Office Visit 07/15/2010 1:00p [facility] Yessenia Rinladi, V25.49 Contraceptive Other ANP-C Method Surveillance Office Visit 02/22/2010 2:00p [facility] Mellisa Lin V72.31 Routine Survey Supervisor Brea Taylor Examination V76.2 Screening Malignant Neoplasm Cervix V25.41 Contraceptive Pill Surveillance Office Visit 08/12/2009 9:00a [facility] Yessenia Rinaldi V25.49 Contraceptive Other ANP-C Method Surveillance Office Visit 06/18/2009 8:00a [facility] Mellisa Lin 624.8 Vulva & Perineum Moises Taylor M.D. Noninflammatory Spec Other Office Visit 05/29/2009 1:00p [facility] Yessenia Rinaldi, 795.03 Pap Smear Cervix ANP-C W/LGSIL Office Visit 03/17/2009 1:20p [facility] Sophia Perrin 795.03 Pap Smear Cervix Suite Q CNM W/LGSIL Office Visit 02/26/2009 1:20p [facility] Mellisa Lin 795.03 Pap Smear Cervix Brandon W/SYD Guidry 079.4 Human Papilloma Virus V72.40 Test Unconfirm Office Visit 02/03/2009 8:20a [facility] Mellisa Taylor, V72.31 Routine Survey Supervisor M.DCorinne Examination V76.2 Screening Malignant Neoplasm Cervix V74.5 Screening Examination Venereal Disease v74.5 Screening Examination Venereal Disease Office Visit 07/23/2007 11:00a [facility] Yessenia Rinaldi, 626.7 Postcoital Bleeding ANP-C V76.2 Screening Malignant Neoplasm Cervix V74.5 Screening Examination Venereal Disease Office Visit 07/10/2007 9:20a [facility] Yessenia Rinaldi, V72.31 Routine Survey Supervisor ANP-C Examination V76.2 Screening Malignant Neoplasm Cervix 626.7 Postcoital Bleeding V74.5 Screening Examination Venereal Disease V73.99 Screening Examination Viral Disease Unspec Plan of Treatment 07/10/2018 - HYUN Magana-CN93.9 Abnormal uterine and vaginal bleeding, unspecifiedFollow up:keep track of menses, annual due this summer. or o/v sooner prn
--- OUTSIDE RECORDS SUMMARY | 2018-08-02 18:46 | XMS REPORT | Continuity of Care Document ---
:1985 External Reference #:[id number] Author Name Hiren Keating M.D. Address [address] [address] Care Team Providers Name Role Phone Marci Graves M.D. Care Team Information Machine Group Leader Unavailable Marci Graves M.D. Primary Care Physician Unavailable Payers Date Identification Numbers Payment Provider Subscriber Policy Number: [id number] [employer] Anastasiia Prather Group Number: [id number] [facility] [id number] Group Name: [id number] [place] [address] PayID: [id number] Advance Directives Description No Information Available Problems Active Problems Provider Date Thyroiditis Hiren Keating M.D. Onset: 02/12/2013 Transient insomnia Hiren Keating M.D. 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 Tobacco Use Start: Unknown Never Smoked Cigarettes Tobacco Use Start: Unknown Never Smoked Cigars Tobacco Use Start: Unknown Never Smoked A Pipe Smokeless Tobacco Never Used Smokeless Tobacco ETOH Use Denies alcohol use Recreational Drug Use .Never Used Drugs Tobacco Use Start: Unknown Patient has never smoked Smoking Status Reviewed: 07/23/18 Patient has never smoked Allergies, Adverse Reactions, Alerts Active Allergies Reaction Severity Comments Date Keflex rash 09/19/2012 Aleve swollen hands 09/19/2012 Azithromycin rash 07/24/2018 Medications Active Medications SIG Qnty Indications Ordering Provider Date Vitamin D 2000 Iu Unknown Hydroxyzine HCL Take 1 2 Tablets Unknown 25mg By Mouth Four Tablets Times A Day as Needed For Anxiety Levothyroxine Sodium Take One Tablet Unknown 100mcg By Mouth Every Tablets Day On An Empty Stomach Metformin HCL ER Take One Tablet Unknown 500mg By Mouth Twice A Tablets ER 24HR Day History Medications Vitamins Unknown - 07/24/2018 Immunizations Description No Information Available Vital Signs Date Vital Result Comment 07/24/2018 8:33am Weight 353.00 lb Weight 160.121 kg Height 70.50 inches 5'10.50" Height in cm's 179.1 cm BMI (Body Mass Index) 49.9 kg/m2 02/12/2013 3:53pm BP Systolic 119 mmHg BP Diastolic 91 mmHg Heart Rate 78 /min Respiratory Rate 16 /min Weight 248.00 lb Weight 112.493 kg Height 70.50 inches 5'10.50" Height in cm's 179.1 cm BMI (Body Mass Index) 35.1 kg/m2 10/02/2012 9:24am BP Systolic 119 mmHg BP Diastolic 82 mmHg Heart Rate 76 /min Respiratory Rate 16 /min Weight 248.00 lb Weight 112.493 kg Height 70.50 inches 5'10.50" Height in cm's 179.1 cm BMI (Body Mass Index) 35.1 kg/m2 09/19/2012 3:28pm BP Systolic 153 mmHg BP Diastolic 90 mmHg Heart Rate 51 /min Respiratory Rate 16 /min Weight 249.00 lb Weight 112.940 kg Height 70.50 inches 5'10.50" Height in cm's 179.1 cm BMI (Body Mass Index) 35.2 kg/m2 O2 % BldC Oximetry 97 % Results Test Date Facility Test Result H/L Range Note Laboratory test 02/15/2013 [facility] PTH Related 0.4 pmol/L <2.0 1 finding c/o [facility] [place] [address] [phone] Pthi 02/12/2013 [facility] PTH Intact 1.9 pmol/L 1.3-9.0 c/o [facility] [place] [address] [phone] Calcium (PTH Intact) 9.4 mg/dL 8.1-9.9 Laboratory test 02/12/2013 [facility] Free T3 3.25 pg/ mL 2.39-6.79 finding c/o [facility] [place], [place] [id number] [phone] Free T4 0.56 ng/mL Low 0.61-1.24 TSH (Thyroid Stimulating Horm) 12.25 miu/mL High 0.34-5.60 T3 Uptake 27 % 20 - 37 2 Calcium 9.4 mg/dL 8.1-9.9 Iron & Iron Binding 02/07/2013 [facility] Iron 44 g/ dL 28-170 Capacity c/o [facility] [place] [address] [phone] Unsaturated Iron Binding 341 g/dL Total Iron Binding Capacity 385 g/dL 250-450 % Iron Saturation 11 % Low 15-55 Laboratory test 02/07/2013 [facility] Thyroid > 996.0 High Less finding c/o [facility] Peroxidase IU/mL Than 9.0 [place] [address] Antibodies [phone] Vitamin D, 25 02/07/2013 [facility] 25-Hydroxy <4.0 ng /mL Hydroxy c/o [facility] Vitamin D2 [place] [address] [phone] 25-Hydroxy Vitamin D3 35 ng/mL 25-Hydroxy Vitamin D Total 35 ng/mL 3 Thyroglobulin AB 02/07/2013 [facility] Thyroglobulin 548 Abnormal <22 4 Screen c/o [facility] Antibody IU/mL [place], [place] [id number] [phone] Thyroglobulin Tumor Marker 44 ng/mL Abnormal 5 Laboratory test 10/02/2012 [facility] TSH (Thyroid 0.50 0.34 -5.60 [place] [address] Stimulating miu/mL [phone] Horm) Basic Metabolic 10/02/2012 [facility] Sodium 138 mmol/L 133- 145 [place] [address] [phone] Potassium 4.3 mmol/L 3.5-5.0 Chloride 103 mmol/L 101-111 Co2 Carbon Dioxide 27.0 mmol/L 22-32 Anion Gap 8.0 mmol/L 2-11 Glucose 92 mg/dL 70-100 Blood Urea Nitrogen 12 mg/dL 6-24 Creatinine 0.70 mg/dL 0.50-1.40 BUN/Creatinine Ratio 17.1 8-20 Egfr Non- 99.6 >60 Egfr 128.1 >60 6 CBC With 10/02/2012 [facility] White Blood 5.5 10^3/uL 4.8- 10.8 [place] [address] Count [phone] Red Blood Count 5.17 10^6/uL 4.0-5.4 Hemoglobin [...] RBC Morphology Normal Normal Laboratory test 10/02/2012 [facility] Calcium 9.7 mg/dL 8.1- 9.9 [place] [address] [phone] 1 Test Performed by: [facility] [address] [address] Machine Group Leader: Shant Valadez III, M.D. 2 Test Performed by: [address] [address] Machine Group Leader: Shant Valadez III, M.D. 3 -- REFERENCE VALUE -- 25-HYDROXY D TOTAL (D2+D3) Optimum levels in the healthy population are 20-50, patients with bone disease may benefit from higher levels within this range. Test Performed by: [facility] [address] [place] [address] Machine Group Leader: Shant Valadez III, M.D. 4 The thyroglobulin testing method is an immunoenzymatic assay manufactured by [employer] and performed on the [employer] DXI 800. The thyroglobulin antibody testing method is an electrochemiluminescence assay manufactured by [employer] and performed on the Modular or Natalie System. Values obtained from different assay methods or kits may be different and cannot be used interchangeably. The results cannot be interpreted as absolute evidence for the presence or absence of malignant disease. Specimens with thyroglobulin concentrations greater than 250,000 ng/mL may give falsely lower results. Test Performed by: [address] [address] Machine Group Leader: Shant Valadez III, M.D. 5 Quantitation of thyroglobulin may be unreliable due to the presence of anti-thyroglobulin antibodies. -- REFERENCE VALUE -- <=33 Athyrotic individuals normally have hTg values <=2. 6 Because ethnic data is not always readily [...] 15-29 5 Kidney failure <15 (or dialysis) Procedures Date Code Description Status 07/24/2018 46876 Fiberoptic Laryngoscopy Completed 09/19/2012 76367 Laryngoscopy Direct, Diagnostic-Except [place] Completed Encounters Type Date Location Provider Dx Diagnosis Office Visit 07/24/2018 [place],Terrance Glass R07.0 Pain in throat 8:30a 04/10/07 Brea Keating H81.399 Other peripheral vertigo, unspecified ear H69.93 Unspecified Eustachian tube disorder, bilateral Office 02/12/2013 [place],After Hiren Glass 245.9 Thyroiditis/Unspecified Visit 3:45p 04/10/07 Venus Keating. Office 10/02/2012 [place] Hiren Glass 307.41 Sleep Disorder Transient Visit 9:15a 04/10/07 Rishabh Initiating Or Maintaining M.D. Sleep Office 09/19/2012 [place],Terrance Campos 307.41 Sleep Disorder Transient Visit 3:30p 04/10/07 Maria Ines DAY Initiating Or Maintaining Sleep Plan of Treatment 07/24/2018 - Hiren Keating M.D.R07.0 Pain in throatComments:The patient has been having some throat discomfort for several weeks now. She has had a normal mono and Strep testing. She has been feeing better over the past week but because of the persistence she is here for evaluation. Her ENT examination and her nasolaryngoscopy are normal. At this point I haveno concerns and I think this will continue to improve.H81.399 Other peripheral vertigo, unspecified earComments:She also had an episode where she had a couple of bouts of vertigo and at one point felt she was going to pass out. The first was after she blew her nose. Right now she is doing ok. I am not sure whatcaused this. It might have been related to the illness that caused her sore throat. It could have been from the pressure of blowing her nose, similar to flying. She continues to feel some plugging of her ears. I will have her return with an audiogram.H69.93 Unspecified Eustachian tube disorder, bilateralFollow up:FU audiogram first OV next available
--- OUTSIDE RECORDS SUMMARY | 2018-08-02 18:46 | XMS REPORT | Continuity of Care Document ---
:1985 External Reference #:[id number] Author Name Lucie Casey Care Team Providers Name Role Phone Marci Graves Primary Care Physician Unavailable Payers Date Identification Numbers Payment Provider Subscriber Policy Number: [id number] [employer] Ppo Oliverio Prather Group Number: [id number] [address] PayID: [id number] Sc[place] SONG [phone] Advance Directives Description No Information Available Problems [...] Sister Crohn's Disease Paternal Grandfather due to MO () Paternal Grandmother due to Parkinsons () [...] Pets Household pets include 2 cats Occupation [employer] and [employer] Department Cigarette Use Never smoked cigarettes Alcohol Denies alcohol use Tobacco Use Start: Unknown Patient has never smoked Drug Use Denies drug use Daily Caffeine Occ Soda Exercise Type/Frequency Exercises [...] Qnty SIG Indications Ordering Provider Fish Oil / Active Unknown 0000 Levothyroxine / Active 100mcg Unknown Sodium 0000 Vitamin D / Active Unknown 0000 Vitamin B12 / Active Unknown 0000 Metformin HCL / Active Unknown 0000 Percocet 06/30/ Hx Tablets 5-325mg 12tabs one Dvorah 2015 - tablet by Luis Carlos, 09/27/ mouth M.DCorinne 2016 q4-6 hours as needed for strong pain PNV-Dha 06/11/ Hx Capsules 27-0.6-0.4 90caps take one Yessenia 2013 - -300mg capsule Gentry, 09/27/ by mouth ANP-C 2016 every day Vistaril 09/19/ Hx Capsules 50mg 20caps 1 tablet Courtney 2012 - po q 4-6 Meza, 12/05/ hours prn CNM 2012 anxiety + Dha 07/16/ Hx Misc 27-1&250mg 30unit 1 po qd María 2013 - s Phill, 03/31/ CNM 2013 No Active 02/06/ Hx Unknown Medications 2011 - 2012 Briellyn 09/11/ Hx Tablets 0.4-35mg-m 3mo 1 po qd Acosta Baez 2011 - olimpia Contreras, 09/09/ MAlcira 2011 Tri-Sprintec 09/11/ Hx Tablets 0.18/0.215 4mo 1 po qd Valeri 2011 - /0.25 mg-3 Thang, 02/04/ 2011 Loloestrin Fe 07/15/ Hx 1mg/10mcg 1Pack 1 po qd V25.49 Courtney 2011 - And 10mcg Meza, 09/11/ CNM 2011 Cecilia 08/12/ Hx Tablets 3-0.02mg 28tabs 1 po qd V25.49 Yessenia 2009 - Gentry, 02/22/ KAUR 2009 Sertraline HCL 00/ Hx Unknown 0000 - 2017 Medications Administered in Office Medication Date Status Form Strength Qnty SIG Indications Ordering Provider No PT Tbco Administered Injection Yessenia SCRN RNG 018 KAUR Rinaldi PT SCRN Tbco Administered Injection Yessenia Id as Non User 018 KAUR Rinaldi Immunizations CPT Code Status Date Vaccine Lot # 34220 Given 02/28/2012 Influenza Virus Vaccine 3Years Or Older 45349 Given 11/16/2009 Gardasil Vaccine For HPV 32412 Given 05/28/2009 Gardasil Vaccine For HPV 90864 Given 03/18/2009 Gardasil Vaccine For HPV Vital Signs Date Vital Result Comment 07/10/2018 1:02pm Height 70.25 inches 5'10.25" 3 Parity 1 10/12/2017 9:01am BP Systolic 130 mmHg BP Diastolic 60 mmHg Height 70.25 inches 5'10.25" Weight 335.00 lb BMI (Body Mass Index) 47.7 kg/m2 Last Menstrual Period 8843650 3 Parity 1 09/27/2016 7:59am BP Systolic 130 mmHg BP Diastolic 80 mmHg Height 70.25 inches 5'10.25" Weight 333.00 lb BMI (Body Mass Index) 47.4 kg/m2 Last Menstrual Period 2254580 3 Parity 1 06/30/2015 9:49am BP Systolic 130 mmHg BP Diastolic 72 mmHg Height 70.25 inches 5'10.25" Weight 303.00 lb BMI (Body Mass Index) 43.2 kg/m2 Last Menstrual Period 1100208 3 Parity 1 06/24/2015 9:13am BP Systolic 134 mmHg BP Diastolic 82 mmHg Height 70.25 inches 5'10.25" Weight 304.00 lb BMI (Body Mass Index) 43.3 kg/m2 Last Menstrual Period 8092826 3 Parity 1 06/19/2015 3:17pm BP Systolic 122 mmHg BP Diastolic 70 mmHg Height 70.25 inches 5'10.25" Weight 306.00 lb BMI (Body Mass Index) 43.6 kg/m2 Last Menstrual Period 2100491 2 Parity 1 04/15/2014 8:25am BP Systolic 108 mmHg BP Diastolic 72 mmHg Height 70.25 inches 5'10.25" Weight 273.00 lb BMI (Body Mass Index) 38.9 kg/m2 Last Menstrual Period 6997529 2 Parity 1 03/31/2014 2:12pm BP Systolic 126 mmHg BP Diastolic 72 mmHg Height 70.25 inches 5'10.25" Weight 269.00 lb BMI (Body Mass Index) 38.3 kg/m2 Last Menstrual Period 2858999 2 Parity 1 03/15/2013 9:48am BP Systolic 114 mmHg BP Diastolic 70 mmHg Height 69 inches 5'9" Weight 239.00 lb BMI (Body Mass Index) 35.3 kg/m2 Last Menstrual Period 5674484 1 Parity 1 10/15/2012 1:20pm BP Systolic 114 mmHg BP Diastolic 74 mmHg Height 69 inches 5'9" Weight 236.00 lb BMI (Body Mass Index) 34.8 kg/m2 Last Menstrual Period 4584526 [facility] 09/14/12 1 Parity 1 02/07/2012 2:07pm BP Systolic 112 mmHg BP Diastolic 74 mmHg Height 69 inches 5'9" Weight 232.00 lb BMI (Body Mass Index) 34.3 kg/m2 Last Menstrual Period 6018189 1 09/12/2011 1:00pm BP Systolic 120 mmHg BP Diastolic 86 mmHg Height 69 inches 5'9" Weight 231.00 lb BMI (Body Mass Index) 34.1 kg/m2 Last Menstrual Period 1722967 0 07/15/2010 12:54pm BP Systolic 112 mmHg BP Diastolic 72 mmHg Height 69.5 inches 5'9.50" Weight 229.00 lb BMI (Body Mass Index) 33.3 kg/m2 Last Menstrual Period 0755039 0 02/22/2010 1:49pm BP Systolic 130 mmHg BP Diastolic 90 mmHg Height 69.75 inches 5'9.75" Weight 224.00 lb BMI (Body Mass Index) 32.4 kg/m2 Last Menstrual Period 8000089 08/12/2009 8:54am BP Systolic 110 mmHg BP Diastolic 62 mmHg Height 69.75 inches 5'9.75" Weight 217.00 lb BMI (Body Mass Index) 31.4 kg/m2 Last Menstrual Period 8080437 0 06/18/2009 8:07am BP Systolic 116 mmHg BP Diastolic 68 mmHg Height 69.75 inches 5'9.75" Weight 214.00 lb BMI (Body Mass Index) 30.9 kg/m2 Last Menstrual Period 1417381 0 05/29/2009 1:00pm BP Systolic 130 mmHg BP Diastolic 58 mmHg Height 69 inches 5'9" Weight 207.00 lb BMI (Body Mass Index) 30.6 kg/m2 Last Menstrual Period 7136452 0 03/17/2009 1:17pm BP Systolic 106 mmHg BP Diastolic 60 mmHg Height 69 inches 5'9" Weight 207.00 lb BMI (Body Mass Index) 30.6 kg/m2 Last Menstrual Period 7758229 02/26/2009 1:20pm BP Systolic 130 mmHg BP Diastolic 70 mmHg Height 69 inches 5'9" Weight 202.00 lb BMI (Body Mass Index) 29.8 kg/m2 Last Menstrual Period 9994534 0 02/03/2009 8:08am BP Systolic 116 mmHg BP Diastolic 80 mmHg Height 69 inches 5'9" Weight 198.00 lb BMI (Body Mass Index) 29.2 kg/m2 Last Menstrual Period 2953415 0 07/23/2007 10:55am BP Systolic 112 mmHg BP Diastolic 70 mmHg Height 69 inches 5'9" Weight 244.00 lb BMI (Body Mass Index) 36.0 kg/m2 Last Menstrual Period 0184180 07/10/2007 9:40am BP Systolic 124 mmHg BP Diastolic 76 mmHg Height 69 inches 5'9" Weight 243.00 lb BMI (Body Mass Index) 35.9 kg/m2 Last Menstrual Period 4711561 Results Test Date Facility Test Result H/L Range Note Laboratory test 09/27/2016 [facility] Cytology SEE RESULT 1 [place] [address] BELOW [phone] Human Papilloma Virus Rna Negative N Negative 2 Laboratory test 08/03/2015 [facility] HCG 5.28 mIU/mL N 3 [place] [address] [phone] Laboratory test 07/13/2015 [facility] HCG 101.05 N 4 [place] [address] mIU/mL [phone] CBC With No Diff 07/09/2015 [facility] White Blood 8.6 10^3/uL N 3.5-10 [place] [address] Count .8 [phone] Red Blood Count 4.72 10^6/uL N 4.0-5.4 Hemoglobin 12.9 g/dL N 12.0-16.0 Hematocrit 39 % N 35-47 Mean Corpuscular Volume 83 fL N 80-97 Mean Corpuscular Hemoglobin 27 pg N 27-31 Mean Corpuscular HGB Conc 33 g/dL N 31-36 Red Cell Distribution Width 16 % High 10.5-15 Platelet Count 265 10^3/uL N 150-450 Mean Platelet Volume 8 um3 N 7.4-10.4 Laboratory test 07/09/2015 [facility] HCG 274.54 N 5 [place] [address] mIU/mL [phone] Liver Function 07/09/2015 [facility] Total Protein 7.0 g/dL N 6.4-8[place] [address] [phone] Albumin 4.2 g/dL N 3.2-5.2 Globulin 2.8 g/dL N 2-4 Albumin/Globulin Ratio 1.5 N 1-3 Total Bilirubin 0.30 mg/dL N 0.2-1.0 Direct Bilirubin 0.00 mg/dL Low 0.03-0.18 Alkaline Phosphatase 51 U/L N 34-104 Alt 15 U/L N 7-52 Ast 15 U/L N 13-39 Laboratory test 07/07/2015 [facility] HCG 525.88 N 6 [place] [address] mIU/mL [phone] Comp Metabolic 06/30/2015 [facility] Sodium 135 mmol/L N 133- 14 [place] [address] 5 [phone] Potassium 4.3 mmol/L N 3.5-5.0 Chloride 103 [...] N >60 7 CBC With No 06/30/2015 [facility] White Blood 5.9 10^3/uL N 3.5-10.8 [place] [address] Count [phone] Red Blood Count 4.78 10^6/uL N 4.0-5.4 Hemoglobin 12.9 g/dL N 12.0-16.0 Hematocrit 40 % N 35-47 Mean Corpuscular Volume 84 fL N 80-97 Mean Corpuscular Hemoglobin 27 pg N 27-31 Mean Corpuscular HGB Conc 32 g/dL N 31-36 Red Cell Distribution Width 15 % N 10.5-15 Platelet Count 258 10^3/uL N 150-450 Mean Platelet Volume 8 um3 N 7.4-10.4 Laboratory test 06/30/2015 [facility] HCG 1938.00 mIU/ mL N 8 [place] [address] [phone] Laboratory test 06/26/2015 [facility] HCG 2836.00 mIU/ mL N 9 [place] [address] [phone] Laboratory test 06/24/2015 [facility] HCG 2978.00 mIU/ mL N 10 [place] [address] [phone] Progesterone 3.2 ng/mL N 11 Laboratory test 06/22/2015 [facility] HCG 3031.00 N 12, 13 [place] [address] mIU/mL [phone] Laboratory test 06/19/2015 [facility] HCG 2837.00 N 14 [place] [address] mIU/mL [phone] Free T4 (Free Thyroxine) 0.88 ng/dL N 0.61-1.12 TSH (Thyroid Stim Horm) 1.39 ?IU/mL N 0.34-5.60 Laboratory test 06/19/2015 [facility] Cytology SEE RESULT 15 [place] [address] BELOW [phone] GC/Chlamydia 06/19/2015 [facility] Chlamydia Negative N [place] [address] trachomatis Rna [phone] Neisseria gonorrhoeae (GC) Rna Negative N Negative Laboratory test 06/19/2015 [facility] Human Papilloma Negative N Negative [address] [place] [address] Virus Rna [phone] Laboratory test 05/02/2014 [facility] Beta HCG 2.97 IU/mL N 0.0-5.0 17 [place] [address] Quantitative [phone] TSH (Thyroid Stimulating Horm) 0.37 IU/mL N 0.34-5.60 Total T3 1.05 ng/mL N 0.87-1.78 Free T4 1.02 ng/mL N 0.61-1.12 Laboratory test 04/15/2014 [facility] Beta HCG 117.42 High 0.0 -5.0 18 [place] [address] Quantitative IU/mL [phone] Urine Culture 03/31/2014 [facility] Urine Culture (SEE [address] [place] [address] NOTE) Sensitivities [phone] Pap Plus HPV 03/15/2013 [facility] HPV HR- 20 CBC With Manual 10/02/2012 [facility] White Blood 5.5 4.8- 10.8 [place] [address] Count 10^3/uL [phone] Red Blood Count 5.17 10^6/uL 4.0-5.4 Hemoglobin [...] RBC Morphology Normal Normal Laboratory test 10/02/2012 [facility] TSH (Thyroid 0.50 0.34- 5.60 [place] [address] Stimulating miu/mL [phone] Horm) Basic Metabolic 10/02/2012 [facility] Sodium 138 mmol/L 133- 145 [place] [address] [phone] Potassium 4.3 mmol/L 3.5-5.0 Chloride 103 mmol/L 101-111 Co2 Carbon Dioxide 27.0 mmol/L 22-32 Anion Gap 8.0 mmol/L 2-11 Glucose 92 mg/dL 70-100 Blood Urea Nitrogen 12 mg/dL 6-24 Creatinine 0.70 mg/dL 0.50-1.40 BUN/Creatinine Ratio 17.1 8-20 Calcium 9.7 mg/dL 8.1-9.9 Egfr Non- 99.6 >60 Egfr 128.1 >60 21 Laboratory test 09/13/2012 [facility] Amnisure Membrane [address] [place] [address] Rupture [phone] Renal Function 08/15/2012 [facility] Sodium 135 mmol/L 133- 145 [place] [address] [phone] Potassium 3.6 mmol/L 3.5-5.0 Chloride 105 mmol/L 101-111 Co2 Carbon Dioxide 24.0 mmol/L 22-32 Anion Gap 6.0 mmol/L 2-11 Glucose 104 mg/dL High 70-100 Blood Urea Nitrogen 2 mg/dL Low 6-24 Creatinine 0.50 mg/dL 0.50-1.40 BUN/Creatinine Ratio 4.0 Low 8-20 Calcium 8.6 mg/dL 8.1-9.9 Phosphorus 4.4 mg/dL 2.4-4.7 Albumin 2.6 g/dL Low 3.6-5.4 Egfr Non- 146.9 >60 Egfr 188.9 >60 23 Creatinine 08/15/2012 [facility] Urine Random 42.3 mg/[place] [address] Creatinine [phone] Creatinine 0.6 mg/dL 0.5-1.4 Creatinine Clearance 176 mL/min High 80-125 Urine Collection Time 24 Urine Total Volume 3600 mL Total Protein 24HR 08/15/2012 [facility] Urine Random Total 8 mg /[place] [address] Protein [phone] Urine Total Protein/24HR 288 mg/24Hr High 0-165 CBC Auto 08/15/2012 [facility] White Blood 10.9 10^3/uL High 4.8-10.8 [place] [address] Count [phone] Red Blood Count 4.03 10^6/uL 4.0-5.4 Hemoglobin [...] Red Blood Cells % 0 Induced 08/15/2012 [facility] Uric Acid 2.6 mg/dL 2.6-7.2 [place] [address] [phone] Liver Function 08/15/2012 [facility] Total 5.6 g/dL Low 6.2- 8.1 [place] [address] Protein [phone] Globulin 3.0 g/dL 2-4 Albumin/Globulin Ratio 0.9 Low 1-3 Total Bilirubin 0.4 mg/dL 0.4-1.5 Direct Bilirubin 0.1 mg/dL 0.1-0.5 Indirect Bilirubin 0.3 mg/dL 0.3-1.0 Alkaline Phosphatase 214 U/L High 30-110 Alt 16 U/L 14-54 Ast 19 U/L 12-42 Laboratory test 08/06/2012 [facility] Group B Strep (SEE NOTE) [address] [place] [address] Culture Screen [phone] Glucose 06/18/2012 [facility] GTT 2HR (SEE NOTE) 25 Tolerance 2[place] [address] Gestational Gestational [phone] CBC With No Diff 06/18/2012 [facility] White Blood 11.1 High 4.8-1 [place] [address] Count 10^3/uL 0.8 [phone] Red Blood Count 3.78 10^6/uL Low 4.0-5.4 [...] Physician Name GEORGINA ARROYO Referring Physician Phone [phone] Referring Physician Npi [id number] Specimen # From Part 1 [id number] Date Of Collection Date Maternal Weight 229 LBS Est'd Date Of Delivery 09/01/2012 Mother's Ethnic Origin Insulin Depend Diabetic NO Repeat Specimen NO Number Of Fetuses 1 HX Of Neural Tube Defects NO PNL No 02/28/2012 [facility] Rubella Screen [place] [address] [phone] Hemoglobin A1c 5.4 % Less than 6.0 30 Hepatitis B Surface Antigen Nonreactive Nonreactive 31 RPR 02/28/2012 [facility] Syphilis IgG TNP Nonreactive [place], [place] [address]329309 [phone] RPR Nonreactive Nonreactive RPR Titer TNP Pediatric/Maternal YES CBC With No 02/28/2012 [facility] White Blood 8.2 10^3/uL 4.8 -10.8 [place] [address] Count [phone] Red Blood Count 4.37 10^6/uL 4.0-5.4 Hemoglobin 13.0 g/dL 12.0-16.0 Hematocrit 38 % 35-47 Mean Corpuscular Volume 88 fL 80-97 Mean Corpuscular Hemoglobin 30 pg 27-31 Mean Corpuscular HGB Conc 34 g/dL 31-36 Red Cell Distribution Width 14 % 10.5-15 Platelet Count 163 10^3/uL 150-450 Mean Platelet Volume 9 um3 7.4-10.4 Type And Screen 02/28/2012 [facility] Patient [place] [address] [phone] Antibody Screen NEGATIVE HIV 1/2 AB 02/28/2012 [facility] HIV 1 2 Nonreactive Nonreactive [address] [place] [address] Antibody [phone] Laboratory 02/28/2012 [facility] TSH (Thyroid 1.31 MIU/ML 0.34-5.60 [place] [address] Stimulating [phone] Horm) Free T4 0.79 NG/ML 0.61-1.24 Serum Integrated SCRN Part 1 AL 02/28/2012 [facility] Comment SEE BELOW 33 Referring Physician Name JACKELYN ARROYO Referring Physician Phone [phone] Referring Physician Npi [id number] Date Of 1985 Collection Date 02/28/2012 Maternal [...] < 20 IU/mL <20 GC/Chlamydia Dna 02/07/2012 [facility] GC/Chlamydia (SEE NOTE) [address] [place] [address] Rna [phone] Urine Culture 02/07/2012 [facility] Urine Culture (SEE NOTE) [address] [place] [address] Sensitivities [phone] Laboratory test 09/12/2011 [facility] Cytology [address] [facility] [place] [address] ----- <SEE [phone] NOTE> Laboratory test 02/22/2010 [facility] Cytology [address] [place] [address] ----- <SEE [phone] NOTE> Laboratory test 06/18/2009 [facility] Surgical [address] [place] [address] Pathology ----- <SEE [phone] NOTE> Laboratory test 05/29/2009 [facility] Cytology hold for [address] [place] [address] ----- <SEE HRHPV [phone] NOTE> Laboratory test 02/26/2009 [facility] Surgical [address] [place] [address] Pathology ----- <SEE [phone] NOTE> GC/ZHL On Thin 02/03/2009 [facility] CHL On Thin NEGATIVE Negative [address] [place] [address] Prep Vial [phone] GC On Thin Prep Vial NEGATIVE Negative 42 Laboratory 02/03/2009 [facility] Cytology 43 [place] [address] <SEE NOTE> [phone] HSV AB Igm 02/03/2009 [facility] HSV Igm NOT DETECTED 44 W/Reflex Titer AB,Screen HSV 1 & 2 Igg 02/03/2009 [facility] HSV 1 Igg 0.15 INDEX 45 Type Herpeselect AB HSV 2 Igg Herpeselect AB 0.07 INDEX 46 Hepatitis C AB 02/03/2009 [facility] Hepatitis C AB NON-REACTIVE Non- Reactive Signal To Cutoff Ratio 0.24 Less Than 1.0 Laboratory test 02/03/2009 [facility] S Ag NON-REACTIVE Non-Reactive finding W/Reflex Conf Vad 02/03/2009 [facility] Vad Final NONREACTIVE Nonreactive [address] [place] [address] [phone] Laboratory test 02/03/2009 [facility] RPR NON REACTIVE [place] [address] [phone] Laboratory test 07/23/2007 [facility] Cytology [address] [place] [address] <SEE NOTE> [phone] Laboratory test 07/10/2007 [facility] Cytology [address] [place] [address] <SEE NOTE> [phone] GC/ZHL On Thin 07/10/2007 [facility] CHL On Thin NEGATIVE Negative [address] [place] [address] Prep Vial [phone] GC On Thin Prep Vial NEGATIVE Negative 51 Vad 07/10/2007 [facility] Vad Final NONREACTIVE Nonreactive [address] [place] [address] [phone] Laboratory test 07/10/2007 [facility] RPR NON REACTIVE [place] [address] [phone] 1 SEE RESULT BELOW Name: OLIVERIO PRATHER : [address]: Valeri Desir MD Acct: [id number] Unit: [id number] AGE: 30 Location: [facility] Re09/27/16 SEX: F Status: REG REF SPEC: [id number] JORGE L: 09/27/[address]: Valeri Desir MD REQ: [id number] RECD: 09/27/161227 STATUS: SOUT _ ORDERED: TP IMAGE ANAL, HPV/Thin Prep COMMENTS: [id number] FINAL DIAGNOSIS Negative for Intraepithelial lesion or [...] and 68. Signed (signature on file) TOMAS Escudero(ASCP) 09/28 1543 This Pap test was evaluated with the assistance of the [employer] Test Imaging System. Due to cytologic findings at the egg smeller microscope, comprehensive manual rescreening by a Radiology Transporter may be required. The Pap Smear is [...] performed at Main Lab DEPARTMENT OF PATHOLOGY, [address] [place] [address] Charles Solano M.D. Director [facility] # [id number] 2 The high-risk HPV types detected by [...] - 45.3 ng/ml 12 under req # [id number] 13 <5.0 Negative 5.0 - 25.0 Indeterminate [...] [address]: Georgina Arroyo NP Acct: [id number] Unit: [id number] AGE: 29 Location: [facility] Re06/19/15 SEX: F Status: REG REF SPEC: [id number] JORGE L: 06/19/15-[address]: Georgina Arroyo NP REQ: [id number] RECD: 06/22/15-1050 STATUS: SOUT _ ORDERED: IMAGE [...] 68. Signed (signature on file) TOMAS Garvey (ASC) 06/22 1238 This Pap test was evaluated with the assistance of the [employer] Labsp Test Imaging System. Due to cytologic findings at the egg smeller microscope, comprehensive manual rescreening by a Radiology Transporter may be required. The Pap Smear is [...] performed at Main Lab DEPARTMENT OF PATHOLOGY, [facility] [employer] [place], [place] [address] Charles Solano M.D. Director [facility] # [id number] 16 The high-risk HPV types detected by the assay include: 16, 18, 31, 33, 35, 39, 45, 51, 52, 56, 58, 59, 66, and 68. 17 <5.0 Negative 5.0 - 25.0 Indeterminate >25.0 Positive 18 <5.0 Negative 5.0 - 25.0 Indeterminate >25.0 Positive 19 RUN DATE: 04/03/14 [facility] LAB LIVE PAGE 1 RUN TIME: 1203 [facility] [employer] [place], [place] [address] Specimen Inquiry Name: OLIVERIO PRATHER : [address]: Georgina Arroyo NP Acct: [id number] Unit: [id number] AGE: 28 Location: [facility] Re03/31/14 SEX: F Status: REG REF SPEC: [id number] JORGE L: 03/31/14-[address] [facility] [address]: Georgina Arroyo NP REQ: [id number] RECD: 04/01/14 STATUS: COMP _ SOURCE: URINE SPDESC: ORDERED: Urine Culture QUERIES: Med[employer] Number [id number] Procedure Result Verified Site Urine Culture Final 04/03/14- 1203 ML Organism 1 NORMAL SHAKIR [place] Count 10-25,000 (Moderate) CFU/ML END OF REPORT * ML=Testing performed at Main Lab DEPARTMENT OF PATHOLOGY, [address] [place] [address] Charles Solano M.D. Director [facility] # [id number] 20 Cytology Laboratory [address] [place] [address], [address] [place] [address] CYTOLOGY REPORT Name: Oliverio Prather : 1985 (Age: 27) Sex: F Location: [facility] GYN [facility] Med Rec. # [id number] Date Collected: 03/15/2013 Billing #: [id number] Date Received: 03/15/2013 Requisition # [id number] Physician(s): VIVEK HAYDEN Source of Specimen: ENDOCERVICAL/ECTOCERVICAL THIN PREP Clinical Information: Date of Last Menstrual Period: None Provided Menstrual History: : 12/01/12 Dysplasia/Cancer History: Dysplasia Treatment History: Colposcopy & Biopsy Specimen Adequacy: SATISFACTORY FOR EVALUATION. NO ENDOCERVICAL/TRANSFORMATION ZONE. General Categorization: NEGATIVE FOR INTRAEPITHELIAL LESION OR MALIGNANCY. lar Electronic Signature Rose Craig, CT (ASCP) Reported: 03/19/2013 Also seen by :Courtney Hadley CT (ASCP) [employer] [email or web address] [facility] HPV High Risk Date Ordered: 03/15/2013 Status: Signed Out Date Reported: 03/19/2013 High Risk NEGATIVE (HPV types 16, 18, 31, 33, 35, 39, 45, 51, 52, 56, 58, 59, 66, 68) [facility] HPV HR Electronic Signature Idalia Austin CT (ASCP) [email or web address] ICD-9 Code(s) V76.2 V13.22 21 Because ethnic [...] <15 (or dialysis) 24 RUN DATE: 08/09/12 [facility] LAB LIVE PAGE 1 RUN TIME: [address] [place] [address] Specimen Inquiry Name: OLIVERIO QUEZADA : [address]: Erika Hauser CNM Acct: [id number] Unit: [id number] AGE: 26 Location: [facility] Re08/06/12 SEX: F Status: REG REF SPEC: [id number] JORGE L: 08/06/12-[address]: Erika Hauser CNM REQ: [id number] RECD: 08/07/12 STATUS: COMP _ SOURCE: VAG/REC SPDES: ORDERED: Lizett Mark QUERIES: [facility] Number [id number] Procedure Result Verified Site Group B Strep [...] resistant strains have not been recognized. (CLSI X703-P75;p.66) Positive isolates will be saved for one week. Please call the Microbiology Laboratory if further susceptibility testing is needed. END OF REPORT * ML=Testing performed at Main Lab DEPARTMENT OF PATHOLOGY, [address] [place] [address] Charles Solano M.D. Director [facility] Permit #[id number] 25 GLU Fast 87 Col: 06/18/12 0803 [...] technique. Interpretation reviewed by: Barbara Jackson, Ph.D., [facility]. This is a screening test, not a diagnostic test. This risk assessment is based on demographic data provided by the ordering physician. Please notify the laboratory promptly if any data are incorrect. If you have questions concerning this report: For clinical consultation, call ; For technical questions, call ext [phone]; For recalculations, fax to . This test was developed and its performance characteristics have been determined by [employer] [facility]. Performance characteristics refer to the analytical performance of the test. 30 Therapeutic target for the treatment of diabetes Mellitus patients is <7% HBA1C, and in selective patients <6.0%.Please refer to [place] Diabetes Association Diabetic care guidelines for further [...] call ; For technical questions, call ext [phone]; For recalculations, fax to . This test was developed and its performance characteristics have been determined by [facility]. Performance characteristics refer to the analytical performance of the test. 34 RUN DATE: 02/10/12 [facility] LAB LIVE PAGE 1 RUN TIME: [address] [place] [address] Specimen Inquiry Name: OLIVERIO QUEZADA : [address]: Georgina Arroyo NP Acct: [id number] Unit: [id number] AGE: 26 Location: [facility] Re02/07/12 SEX: F Status: REG REF SPEC: [id number] JORGE L: 02/07/12-[address]: Georgina Arroyo NP REQ: [id number] RECD: 02/08/12 STATUS: COMP _ SOURCE: ENDOCERVIX SPDESC: ORDERED: GC/Chlam RNA QUERIES: Medent Number [id number] Procedure Result Verified Site Chlamydia Trachomatis RNA [...] result may have adverse psychosocial impact, the [facility] recommends retesting by a method using an [...] performed at Main Lab DEPARTMENT OF PATHOLOGY, [facility] [employer] [place], [place] [address] Charles Solano M.D. Director [facility] Permit #[id number] RUN DATE: 02/10/12 [facility] LAB LIVE PAGE 2 RUN TIME: [address] [place] [address] Specimen Inquiry Patient: OLIVERIO QUEZADA [id number] (Continued) Specimen: [id number] Collected: 02/07/12-1532 Received: 02/08/12-102 (Continued) Procedure Result Verified Site GC (N. gonorrhoeae) RNA Final (continued) 02/10/12- 1411 Performance characteristics for detecting C. trachomatis and N. gonorrhoeae are derived from high prevalence populations. Positive results in low prevalence populations should be interpreted carefully with the understanding that the likelihood of a false positive may be higher than a true positive. END OF REPORT * ML=Testing performed at Main Lab DEPARTMENT OF PATHOLOGY, [facility] [employer] [place], [place] [address] Charles Solano M.D. Director [facility] Permit #[id number] RUN DATE: 02/09/12 [facility] LAB LIVE PAGE 1 RUN TIME: 1035 [address], [place] [address] Specimen Inquiry Name: OLIVERIO QUEZADA : [address]: Georgina Arroyo NP Acct: [id number] Unit: [id number] AGE: 26 Location: [facility] Re02/07/12 SEX: F Status: REG REF SPEC: [id number] JORGE L: 02/07/12-[address]: Georgina Arroyo NP REQ: [id number] RECD: 02/07/12 STATUS: COMP _ SOURCE: URINE SPDESC: ORDERED: Urine Culture QUERIES: Medent Number [id number] Procedure Result Verified Site Urine Culture Final 02/09/12- 1034 ML Organism 1 NORMAL SHAKIR [place] Count 10-25,000 (Moderate) CFU/ML END OF REPORT * ML=Testing performed at Main Lab DEPARTMENT OF PATHOLOGY, [address] [place] [address] Charles Solano M.D. [facility] Permit #[id number] ---- RUN DATE: 09/13/11 [facility] NMI LIVE PAGE 1 RUN TIME: 1152 Specimen Inquiry RUN USER: INTERFACE -- Name: OLIVERIO QUEZADA Acceloise#: [id number] Status: REG REF Re09/12/11 Age/Sex: 25/F Unit#: [id number] Location: [facility] : [birth year] -- Specimen: [id number] [place]OLINET Spec Date:09/12/[address]: Georgina Arroyo NP Spec Type: [...] was evaluated with the assistance of the [employer] Pap Test Imaging System. The Pap Smear [...] years. Initial evaluation performed by Reno ABEL(ASCP) 09/13/11 Final Interpretation electronically signed by: Reno ABEL(ASCP) 09/13/11 1151 -- -- DEPARTMENT OF PATHOLOGY, [address] [place] [address] [facility] Permit #[id number] Brea Lopez M.D. Assistant Dir verito -- 37 ---- RUN DATE: 02/23/10 [facility] NMI LIVE PAGE 1 RUN TIME: 1437 Specimen Inquiry RUN USER: INTERFACE -- Name: OLIVERIO QUEZADA#: [id number] Status: REG REF Re02/22/10 Age/Sex: 24/F Unit#: [id number] Location: [facility] : 83 -- Specimen: [id number] SOUT Spec Date: 02/22/[address]: Mellisa merida MD Spec Type: CYTOLOGY [...] was evaluated with the assistance of the [employer] Pap Test Imaging System. The Pap Smear [...] years. Final Interpretation electronically signed by: Jayna COLIN(ASCP) 02/23/10 143 7 -- -- DEPARTMENT OF PATHOLOGY, [address] [place] [address] [facility] Permit #[id number] Charles Solano M.D. Director Peewee Polanco M.D. Cash Manager Dir verito -- 38 ---- RUN DATE: 06/19/09 [facility] NMI LIVE PAGE 1 RUN TIME: 1244 Specimen Inquiry RUN USER: INTERFACE -- Name: OLIVERIO QUEZADA Status: REG REF Re06/18/09 Age/Sex: 23/F Unit#: [id number] Location: [facility] : 83 -- Specimen: [id number] SOUT Spec Date: 06/18/[address]: Mellisa merida MD Spec Type: SURGICAL [...] 06/19/09 1244 -- -- DEPARTMENT OF PATHOLOGY, [address] [place] [address] [facility] Permit #[id number] Charles Solano M.D. Director Peewee Polanco M.D. Cash Manager Dir verito -- 39 ---- RUN DATE: 06/03/09 [facility] NMI LIVE PAGE 1 RUN TIME: 161 Specimen Inquiry RUN USER: INTERFACE -- Name: OLIVERIO QUEZADA Status: REG REF Re05/29/09 Age/Sex: 23/F Unit#: [id number] Location: [facility] : 83 -- Specimen: [id number] SOUT Spec Date: 05/29/[address]: Yessenia Garcia [facility] Spec Type: CYTOLOGY Received: 06/01/09-0528 Copies to: SOURCE ECTOCERVICAL/ENDOCERVICAL Thin Prep with [...] OR MALIGNANCY * NOTE [place]imen [place] for high risk HPV DNA testing on 06/01/09 at 1600 by [employer]. Results will be reported separately in an addendum. ADDENDUM Addendum #1 Entered: 06/03/09-1619 [facility] Human Papilloma Virus test results received with preparation and diagnosis completed by [place]. Results: NEGATIVE High Risk (HPV types 16, 18, 31, 33, 35, 39, 45, 51, 52, 56, 58, 59, 68) -- DEPARTMENT OF PATHOLOGY, [address] [place] [address] [facility] Permit #[id number] Charles Solano M.D. Director Peewee Polanco M.D. Cash Manager Dir sellers -- -- RUN DATE: 06/03/09 [facility] NMI LIVE PAGE 2 RUN TIME: 1619 Specimen Inquiry RUN USER: INTERFACE -- Name: OLIVERIO QUEZADA Status: REG REF Re05/29/09 Age/Sex: 23/F Unit#: [id number] Location: [facility] : 83 -- -- CONTINUED -- ADDENDUM (Continued) Addendum Review Jayna COLIN([facility]) 06/03/09 -- This Pap test was evaluated with the assistance of the Miy[employer] Pap Test Imaging System. The Pap Smear [...] three years. Initial evaluation performed by Reno ABEL([facility]) 06/01/09 Final Interpretation electronically signed by: Reno ABEL([facility]) 06/01/09 1415 -- -- DEPARTMENT OF PATHOLOGY, [address] [place] [address] [facility] Permit #[id number] Charles Solano M.D. Director Peewee Polanco M.D. Cash Manager Dir verito -- 40 ---- RUN DATE: 03/02/09 [facility] NMI LIVE PAGE 1 RUN TIME: 1408 Specimen Inquiry RUN USER: INTERFACE -- Name: JOSE ALBERTOOLIVERIO Status: REG REF Re02/26/09 Age/Sex: 23/F Unit#: [id number] Location: [facility] : 83 -- Specimen: [id number] SOUT Spec Date: 02/26/[address]: Mellisa merida MD Spec Type: SURGICAL P Received: 02/27/09-1301 Copies to: CYTOLOGY SPECIMEN 1) CERVICAL BIOPSY 2) ENDOCERVICAL CURETTINGS HISTORY PRE-OP DIAGNOSIS: Dysplasia GROSS DESCRIPTION 1) Specimen received in formalin labelled Oliverio Quezada Cervical Biopsy and consists of several fragments of everett-white tissue measuring in aggregate 0.6 x 0.5 x 0.3 cm. Specimen is filtered and submitted entirely, one cassette labelled one. 2) Specimen received in formalin labelled KRISSY William and consists of several fragments of mucoid [...] 03/02/09 1407 -- -- DEPARTMENT OF PATHOLOGY, [address] [place] [address] [facility] Permit #[id number] Charles Solano M.D. Director Peewee Polanco M.D. Cash Manager Dir sellers -- 41 . A negative result does [...] mixup. . 43 ---- RUN DATE: 02/04/09 [facility] NMI LIVE PAGE 1 RUN TIME: 1331 Specimen Inquiry RUN USER: INTERFACE -- Name: OLIVERIO QUEZADA Status: REG REF Re02/03/09 Age/Sex: 23/F Unit#: [id number] Location: [facility] : 83 -- Specimen: [id number] SOUT Spec Date: 02/03/[address]: Mellisa merida MD Spec Type: CYTOLOGY [...] was evaluated with the assistance of the [employer] Pap Test Imaging System. Due to cytologic findings at the egg smeller microscope, comprehensive manual rescreening by a Radiology Transporter was required. The Pap Smear is a [...] johnny uld be -- DEPARTMENT OF PATHOLOGY, [address] [place] [address] [facility] Permit #[id number] Charles Sudilovsky,Brea Lakhani verito -- -- RUN DATE: 02/04/09 [facility] NMI LIVE PAGE 2 RUN TIME: 1331 Specimen Inquiry RUN USER: INTERFACE -- Name: OLIVERIO QUEZADA Status: REG REF Re02/03/09 Age/Sex: 23/F Unit#: [id number] Location: [facility] : 83 -- -- CONTINUED -- (Continued) obtained and evaluated every one to three years. Initial evaluation performed by Jayna COLIN([facility]) 02/04/09 Final Interpretation electronically signed by: PEEWEE POLANCO 02/04/09 1331 -- -- DEPARTMENT OF PATHOLOGY, [address] [place] [address] [facility] Permit #[id number] Charles Solano M.D. Director Peewee Polanco M.D. Cash Manager Dir verito -- 44 Reference range: NOT [...] from confidential records which are protected by [place] State law. State law prohibits you from making further disclosure of this information without the specific written consent of the person to whom it pertains, or as otherwise permitted by law. Any unauthorized further disclosure in violation of state law may result in a fine or shelter sentence or both. General authorization for the release of medical or other information is not, except in limited circumstances set forth in Part 63, Title 10, of [facility], sufficient authorization for further disclosure. Disclosure of confidential HIV information that occurs as the result of a general authorization for the release of medical or other information will be in violation of the state law and may result in a fine or a shelter sentence. . 48 ---- RUN DATE: 07/27/07 [facility] NMI LIVE PAGE 1 RUN TIME: 1447 Specimen Inquiry RUN USER: INTERFACE -- Name: OLIVERIO QUEZADA Status: REG REF Re07/23/07 Age/Sex: 21/F Unit#: [id number] Location: [facility] : 83 -- Specimen: [id number] SOUT Spec Date: 07/23/07 [facility] Dr: Yessenia Garcia MANAGER ANALYSIS Spec Type: CYTOLOGY Received: 07/24/07 Copies to: [...] significance (ASC-US) * NOTE Specimen sent to [facility], [place], [place] for high risk HPV DNA testing on 07/24/07 at 1600 by DB. ADDENDUM Addendum #1 Entered: 07/27/07 [facility] Human Papilloma Virus test results received with preparation and diagnosis completed by [facility], [place], [place]. Results: NEGATIVE High Risk (HPV types 16, 18, 31, 33, 35, 39, 45, 51, 52, 56, 58, 59, 68) -- DEPARTMENT OF PATHOLOGY, [address] [place] [address] [facility] Permit #[id number] Charles Solano M.D. Director of Laboratories -- -- RUN DATE: 07/27/07 [facility] NMI LIVE PAGE 2 RUN TIME: 1447 Specimen Inquiry RUN USER: INTERFACE -- Name: OLIVERIO QUEZADA Status: REG REF Re07/23/07 Age/Sex: 21/F Unit#: [id number] Location: [facility] : 83 -- -- CONTINUED -- ADDENDUM (Continued) (Original consultation report to follow). Addendum Review Jayna COLIN([facility]) 07/27/07 -- This Pap test was evaluated with the assistance of the [employer] Pap Test Imaging System. Due to cytologic findings at the egg smeller microscope, comprehensive manual rescreening by a Radiology Transporter was required. The Pap Smear is a [...] three years. Initial evaluation performed by Jayna COLIN([facility]) 07/24/07 Final Interpretation electronically signed by: CHARLES SOLANO MD 07/24/07 13 13 -- -- DEPARTMENT OF PATHOLOGY, [address] [place] [address] [facility] Permit #[id number] Charles Solano M.D. Director of Laboratories -- 49 ---- RUN DATE: 07/13/07 [facility] NMI LIVE PAGE 1 RUN TIME: 1215 Specimen Inquiry RUN USER: INTERFACE [id number] OLIVERIO QUEZADA <REG REF 07/09> ([id number]) Yessenia Galvez CNP -- Specimen: [id number] Spec Date: 07/10/[address]: Yessenia Garcia MANAGER ANALYSIS Spec Type: CYTOLOGY Received: 07/11/07 Copies to: [...] was evaluated with the assistance of the [employer] Pap Test Imaging System. The Pap Smear [...] Reno ABEL(ASCP) 07/12/07 -- DEPARTMENT OF PATHOLOGY, [address] [place] [address] [facility] Permit #[id number] [id number] Charles Solano M.D. Director of Laboratories -- -- RUN DATE: 07/13/07 [facility] NMI LIVE PAGE 2 RUN TIME: 1215 Specimen Inquiry RUN USER: INTERFACE -- SPEC #: [id number] PATIENT: JOSE ALBERTOOLIVERIO #[id number] (Continued) -- Final Interpretation electronically signed by: CHARLES SOLANO MD 07/13/07 12 15 -- -- DEPARTMENT OF PATHOLOGY, [address] [place] [address] [facility] Permit #[id number] 010 Charles Solano M.D. Director of Laboratories [...] from confidential records which are protected by [place] State law. State law prohibits you from making further disclosure of this information without the specific written consent of the person to whom it pertains, or as otherwise permitted by law. Any unauthorized further disclosure in violation of state law may result in a fine or shelter sentence or both. General authorization for the release of medical or other information is not, except in limited circumstances set forth in Part 63, Title 10, of [employer], sufficient authorization for further disclosure. Disclosure of confidential HIV information that occurs as the result of a general authorization for the release of medical or other information will be in violation of the state law and may result in a fine or a shelter sentence. . Procedures Date Code Description Status 11/02/2017 [id number] Mammogram Completed 07/01/2015 65148 Injection Intramuscular Or Subcutaneous Completed 06/24/2015 93683 Echography Transvaginal Completed 03/31/2014 77654 OB Ultrasound First Trimester Completed 09/14/2012 33315 Obstetric Care Routine Completed 09/11/2012 59921 Echography Uterus Limited Completed 09/11/2012 72563 Non-Stress Test Completed 08/06/2012 73964 Echography Uterus Follow-Up Or Repeat Completed 07/06/2012 58399 Echography Uterus Follow-Up Or Repeat Completed 04/27/2012 62513 Echography Uterus Complete Completed 02/28/2012 90643 Injection Intramuscular Or Subcutaneous Completed 02/28/2012 61844 OB Ultrasound First Trimester Completed 11/16/2009 04941 Injection Intramuscular Or Subcutaneous Completed 06/18/2009 31898 Biopsy Cervix Completed 02/26/2009 65877 Colposcopy W/Biopsy Cervix/Endocervical Curettage Completed 07/23/2007 12561 Echography Transvaginal Completed 07/23/2007 54132 Echography Transvaginal Completed Encounters Type Date Location Provider Dx Diagnosis Office Visit 10/12/2017 [facility] KAUR Magana Z01.419 Encntr for grape pruner exam 9:00a (general) (routine) w/o abn findings N64.59 Other signs and symptoms in breast Office Visit 09/27/2016 8:00a [facility] Valeri Z01.419 Encntr for grape pruner exam MD Thang (general) (routine) w/o abn findings Office Visit 07/01/2015 9:00a [facility] Dvorah Elmo, O00.9 Ectopic , M.D. unspecified Office Visit 06/30/2015 11:00a [facility] Yessenia Rinaldi, O36.80x0 w ANP-C inconclusive viability, unsp Office Visit 06/24/2015 9:40a [facility] Yessenia Rinaldi, O20.8 Other hemorrhage in ANP-C early Office Visit 06/19/2015 3:30p [facility] Office Georgina Arroyo, N91.2 Amenorrhea, BIAZZI NITRATOR OPERATOR unspecified Z01.419 Encntr for grape pruner exam (general) (routine) w/o abn findings Office Visit 04/15/2014 8:30a [facility] Georgina Arroyo, v23.87 BIAZZI NITRATOR OPERATOR W/Inconclusive Viabilty 632 Missed Office Visit 03/31/2014 3:00p [facility] Georgina Arroyo, BIAZZI NITRATOR OPERATOR v28.9 Screening Unspec 646.83 Complication Spec Other Antepartum Cond Or Compl Office Visit 03/15/2013 10:00a [facility] Office Georgina Arroyo, V72.31 Routine Cleater BIAZZI NITRATOR OPERATOR Examination V76.2 Screening Malignant Neoplasm Cervix Office Visit 09/12/2011 1:00p [facility] Office Georgina Arroyo, V72.31 Routine Cleater BIAZZI NITRATOR OPERATOR Examination V76.2 Screening Malignant Neoplasm Cervix V25.41 Contraceptive Pill Surveillance Office Visit 07/15/2010 1:00p [facility] Yessenia Rinaldi, V25.49 Contraceptive Other ANP-C Method Surveillance Office Visit 02/22/2010 2:00p [facility] Mellisa Lin V72.31 Routine Cleater Brea Taylor Examination V76.2 Screening Malignant Neoplasm Cervix V25.41 Contraceptive Pill Surveillance Office Visit 08/12/2009 9:00a [facility] Yessenia Rinaldi, V25.49 Contraceptive Other ANP-C Method Surveillance Office Visit 06/18/2009 8:00a [facility] Mellisa Lin 624.8 Vulva & Perineum [...] Office Visit 02/03/2009 8:20a [facility] Mellisa YaniCorinne Taylor, V72.31 Routine Cleater M.D. Examination V76.2 Screening Malignant Neoplasm Cervix V74.5 Screening Examination Venereal Disease v74.5 Screening Examination Venereal Disease Office Visit 07/23/2007 11:00a [facility] Yessenia Rinaldi, 626.7 Postcoital Bleeding ANP-C V76.2 Screening Malignant Neoplasm Cervix V74.5 Screening Examination Venereal Disease Office Visit 07/10/2007 9:20a [facility] Yessenia Rinaldi, V72.31 Routine Cleater ANP-C Examination V76.2 Screening Malignant Neoplasm Cervix 626.7 Postcoital Bleeding V74.5 Screening Examination Venereal Disease V73.99 Screening Examination Viral Disease Unspec Plan of Treatment 07/01/2015 - Opal Aldridge M.D.O00.9 Ectopic , unspecifiedComments: Reviewed risks/benefits of Rx options including Observati on/Methotrexate/ SurgeryReviewed increased risk of ectopic in future pregnancies. Rec condoms x at least 2 normal menses. Recommend early care with future pregnancies to confirm IUP in future. All ?s answered.Methotrexate dosecalculated, given in divided dose.Day 4 Quant BHCG Monday. Pt plans to have drawn in lab in [place].Day 7 Quant BHCG Monday07/07/2015. Expect at least 15% decrease from Day 4.If appropriate decrease, rec Quant BHCG weekly until negative. Reviewed precautions.Pelvic rest. Rec no ETOH, no folic acid supplements. Percocet one tablet po q4-6 prn pain #12. If inadequate relief with Percocet, recommend ER evaluation.O00.9 Ectopic , unspecifiedComments:Reviewed risks/benefits of Rx options including Observati on /Methotrexate/SurgeryReviewed increased risk of ectopic in future pregnancies. Rec condoms x at least 2 normal menses. Recommend early care with future pregnancies to confirm IUP in future. All ?s answered.Methotrexate dosecalculated, given in divided dose.Day 4 Quant BHCG Monday. Pt plans to have drawn in lab in [place].Day 7 Quant BHCG Monday07/07/2015. Expect at least 15% decrease from Day 4.If appropriate decrease, rec Quant BHCG weekly until negative. Reviewed precautions.Pelvic rest. Rec no ETOH, no folic acid supplements. Percocet one tablet po q4-6 prn pain #12. If inadequate relief with Percocet, recommend ER evaluation.
--- OUTSIDE RECORDS SUMMARY | 2018-08-02 18:46 | XMS REPORT | Continuity of Care Document ---
:1985 External Reference #:[id number] Author Name Lucie Casey Care Team Providers Name Role Phone Marci Graves Primary Care Physician Unavailable Payers Date Identification Numbers Payment Provider Subscriber Policy Number: [id number] [employer] P[employer] Oliverio Prather Group Number: [id number] [address] PayID: [id number] Rotan SONG [id number] Advance Directives Description No Information Available Problems [...] Sister Crohn's Disease Paternal Grandfather due to OH () Paternal Grandmother due to Parkinsons () [...] Pets Household pets include 2 cats Occupation [employer] Cigarette Use Never smoked cigarettes Alcohol [...] Courtney 2012 - po q 4-6 Meza, 05/ hours prn CNM 2012 anxiety + Dha 07/16/ Hx Misc 27-1&250mg 30unit 1 po qd María 2012 - s Phill, 03/31/ CNM 2013 No Active 02/06/ Hx Unknown Medications 2011 - 2012 Briellyn 09/11/ Hx Tablets 0.4-35mg-m 3mo 1 po qd Acosta Baez 2011 - cg Ben, 09/09/ M.DCorinne 2011 Tri-Sprintec 09/11/ Hx Tablets 0.18/0.215 4mo [...] CPT Code Status Date Vaccine Lot # [id number] Given 02/28/2012 Influenza Virus Vaccine 3Years Or Older 56263 Given 11/16/2009 Gardasil Vaccine For HPV 74500 Given 05/28/2009 Gardasil Vaccine For HPV 17844 Given 03/18/2009 Gardasil Vaccine For HPV Vital Signs Date Vital Result Comment 07/10/2018 1:02pm BP Systolic 128 mmHg BP Diastolic 80 mmHg Height 70.25 inches 5'10.25" Weight 340.00 lb BMI (Body Mass Index) 48.4 kg/m2 Last Menstrual Period 0108166 3 Parity 1 10/12/2017 9:01am BP Systolic 130 mmHg BP Diastolic 60 mmHg Height 70.25 inches 5'10.25" Weight 335.00 lb BMI (Body Mass Index) 47.7 kg/m2 Last Menstrual Period 6360602 3 Parity 1 09/27/2016 7:59am BP Systolic 130 mmHg BP Diastolic 80 mmHg Height 70.25 inches 5'10.25" Weight 333.00 lb BMI (Body Mass Index) 47.4 kg/m2 Last Menstrual Period 2758772 3 Parity 1 06/30/2015 9:49am BP Systolic 130 mmHg BP Diastolic 72 mmHg Height 70.25 inches 5'10.25" Weight 303.00 lb BMI (Body Mass Index) 43.2 kg/m2 Last Menstrual Period 8714370 3 Parity 1 06/24/2015 9:13am BP Systolic 134 mmHg BP Diastolic 82 mmHg Height 70.25 inches 5'10.25" Weight 304.00 lb BMI (Body Mass Index) 43.3 kg/m2 Last Menstrual Period 4069135 3 Parity 1 06/19/2015 3:17pm BP Systolic 122 mmHg BP Diastolic 70 mmHg Height 70.25 inches 5'10.25" Weight 306.00 lb BMI (Body Mass Index) 43.6 kg/m2 Last Menstrual Period 8717267 2 Parity 1 04/15/2014 8:25am BP Systolic 108 mmHg BP Diastolic 72 mmHg Height 70.25 inches 5'10.25" Weight 273.00 lb BMI (Body Mass Index) 38.9 kg/m2 Last Menstrual Period 7062604 2 Parity 1 03/31/2014 2:12pm BP Systolic 126 mmHg BP Diastolic 72 mmHg Height 70.25 inches 5'10.25" Weight 269.00 lb BMI (Body Mass Index) 38.3 kg/m2 Last Menstrual Period 7628032 2 Parity 1 03/15/2013 9:48am BP Systolic 114 mmHg BP Diastolic 70 mmHg Height 69 inches 5'9" Weight 239.00 lb BMI (Body Mass Index) 35.3 kg/m2 Last Menstrual Period 1731134 1 Parity 1 10/15/2012 1:20pm BP Systolic 114 mmHg BP Diastolic 74 mmHg Height 69 inches 5'9" Weight 236.00 lb BMI (Body Mass Index) 34.8 kg/m2 Last Menstrual Period 7111429 [facility] 09/14/12 1 Parity 1 02/07/2012 2:07pm BP Systolic 112 mmHg BP Diastolic 74 mmHg Height 69 inches 5'9" Weight 232.00 lb BMI (Body Mass Index) 34.3 kg/m2 Last Menstrual Period 5160998 1 09/12/2011 1:00pm BP Systolic 120 mmHg BP Diastolic 86 mmHg Height 69 inches 5'9" Weight 231.00 lb BMI (Body Mass Index) 34.1 kg/m2 Last Menstrual Period 8691391 0 07/15/2010 12:54pm BP Systolic 112 mmHg BP Diastolic 72 mmHg Height 69.5 inches 5'9.50" Weight 229.00 lb BMI (Body Mass Index) 33.3 kg/m2 Last Menstrual Period 9756767 0 02/22/2010 1:49pm BP Systolic 130 mmHg BP Diastolic 90 mmHg Height 69.75 inches 5'9.75" Weight 224.00 lb BMI (Body Mass Index) 32.4 kg/m2 Last Menstrual Period 4516896 08/12/2009 8:54am BP Systolic 110 mmHg BP Diastolic 62 mmHg Height 69.75 inches 5'9.75" Weight 217.00 lb BMI (Body Mass Index) 31.4 kg/m2 Last Menstrual Period 5254021 0 06/18/2009 8:07am BP Systolic 116 mmHg BP Diastolic 68 mmHg Height 69.75 inches 5'9.75" Weight 214.00 lb BMI (Body Mass Index) 30.9 kg/m2 Last Menstrual Period 2454205 0 05/29/2009 1:00pm BP Systolic 130 mmHg BP Diastolic 58 mmHg Height 69 inches 5'9" Weight 207.00 lb BMI (Body Mass Index) 30.6 kg/m2 Last Menstrual Period 1207867 0 03/17/2009 1:17pm BP Systolic 106 mmHg BP Diastolic 60 mmHg Height 69 inches 5'9" Weight 207.00 lb BMI (Body Mass Index) 30.6 kg/m2 Last Menstrual Period 4076551 02/26/2009 1:20pm BP Systolic 130 mmHg BP Diastolic 70 mmHg Height 69 inches 5'9" Weight 202.00 lb BMI (Body Mass Index) 29.8 kg/m2 Last Menstrual Period 7550659 0 02/03/2009 8:08am BP Systolic 116 mmHg BP Diastolic 80 mmHg Height 69 inches 5'9" Weight 198.00 lb BMI (Body Mass Index) 29.2 kg/m2 Last Menstrual Period 2661646 0 07/23/2007 10:55am BP Systolic 112 mmHg BP Diastolic 70 mmHg Height 69 inches 5'9" Weight 244.00 lb BMI (Body Mass Index) 36.0 kg/m2 Last Menstrual Period 8253444 07/10/2007 9:40am BP Systolic 124 mmHg BP Diastolic 76 mmHg Height 69 inches 5'9" Weight 243.00 lb BMI (Body Mass Index) 35.9 kg/m2 Last Menstrual Period 4283078 Results Test Date Facility Test Result H/L Range Note Laboratory test 09/27/2016 [facility] Cytology SEE RESULT 1 [place] [address] BELOW [phone] Human Papilloma Virus Rna Negative N Negative 2 Laboratory test 08/03/2015 [facility] HCG 5.28 mIU/mL N 3 finding [place], [place] [address]35409 [phone] Laboratory test 07/13/2015 [facility] HCG 101.05 N 4 [place] [address] mIU/mL [phone] CBC With No Diff 07/09/2015 [facility] White Blood 8.6 10^3/uL N 3.5-10 [place] [address] Count .8 [phone] Red Blood Count 4.72 10^6/uL N 4.0-5.4 Hemoglobin 12.9 g/dL N 12.0-16.0 Hematocrit 39 % N 35-47 Mean Corpuscular Volume 83 fL N 80-97 Mean Corpuscular Hemoglobin 27 pg N 27-31 Mean Corpuscular HGB Conc 33 g/dL N 31-36 Red Cell Distribution Width 16 % High 10.5-15 Platelet Count 265 10^3/uL N 150-450 Mean Platelet Volume 8 um3 N 7.4-10.4 Laboratory test 07/09/2015 [facility] HCG 274.54 N 5 [place] [address] mIU/mL [phone] Liver Function 07/09/2015 [facility] Total Protein 7.0 g/dL N 6.4-8[place] [address] 9 [phone] Albumin 4.2 g/dL N 3.2-5.2 Globulin 2.8 g/dL N 2-4 Albumin/Globulin Ratio 1.5 N 1-3 Total Bilirubin 0.30 mg/dL N 0.2-1.0 Direct Bilirubin 0.00 mg/dL Low 0.03-0.18 Alkaline Phosphatase 51 U/L N 34-104 Alt 15 U/L N 7-52 Ast 15 U/L N 13-39 Laboratory test 07/07/2015 [facility] HCG 525.88 N 6 [place] [address] mIU/mL [phone] Comp Metabolic 06/30/2015 [facility] Sodium 135 mmol/L N 133- 14 [place] [address] 5 [phone] Potassium 4.3 mmol/L N 3.5-5.0 Chloride 103 [...] N >60 7 CBC With No 06/30/2015 [facility] White Blood 5.9 10^3/uL N 3.5-10[place]8 [place] [address] Count [phone] Red Blood Count 4.78 10^6/uL N 4.0-5.4 Hemoglobin 12.9 g/dL N 12.0-16.0 Hematocrit 40 % N 35-47 Mean Corpuscular Volume 84 fL N 80-97 Mean Corpuscular Hemoglobin 27 pg N 27-31 Mean Corpuscular HGB Conc 32 g/dL N 31-36 Red Cell Distribution Width 15 % N 10.5-15 Platelet Count 258 10^3/uL N 150-450 Mean Platelet Volume 8 um3 N 7.4-10.4 Laboratory test 06/30/2015 [facility] HCG 1938.00 mIU/ mL N 8 finding [place], [place] [address]56 [phone] Laboratory test 06/26/2015 [facility] HCG 2836.00 mIU/ mL N 9 [place] [address] [phone] Laboratory test 06/24/2015 [facility] HCG 2978.00 mIU/ mL N 10 [address] [place], [place] [address]29 [phone] Progesterone 3.2 ng/mL N 11 Laboratory test 06/22/2015 [facility] HCG 3031.00 N 12, 13 [place] [address] mIU/mL [phone] Laboratory test 06/19/2015 [facility] HCG 2837.00 N 14 [place] [address] mIU/mL [phone] Free T4 (Free Thyroxine) 0.88 ng/dL N 0.61-1.12 TSH (Thyroid Stim Horm) 1.39 ?IU/mL N 0.34-5.60 Laboratory test 06/19/2015 [facility] Cytology SEE RESULT 15 [place] [address] BELOW [phone] GC/Chlamydia 06/19/2015 [facility] Chlamydia Negative [place] [address] trachomatis Rna [phone] Neisseria gonorrhoeae (GC) Rna Negative N Negative Laboratory test 06/19/2015 [facility] Human Papilloma Negative N Negative 16 [place] [address] Virus Rna [phone] Laboratory test 05/02/2014 [facility] Beta HCG 2.97 IU/mL N 0.0-5.0 17 [place] [address] Quantitative [phone] TSH (Thyroid Stimulating Horm) 0.37 IU/mL N 0.34-5.60 Total T3 1.05 ng/mL N 0.87-1.78 Free T4 1.02 ng/mL N 0.61-1.12 Laboratory test 04/15/2014 [facility] Beta HCG 117.42 High 0.0 -5.0 18 [place] [address] Quantitative IU/mL [phone] Urine Culture 03/31/2014 [facility] Urine Culture (SEE [address] [place] [address] NOTE) Sensitivities [phone] Pap Plus HPV 03/15/2013 [facility] HPV HR- 20 CBC With Manual 10/02/2012 [facility] White Blood 5.5 4.8- 10[place]8 [place] [address] Count 10^3/uL [phone] Red Blood Count 5.17 10^6/uL 4.0-5.4 Hemoglobin [...] RBC Morphology Normal Normal Laboratory test 10/02/2012 [facility] TSH (Thyroid 0.50 0.34- 5.60 [place] [address] Stimulating miu/mL [phone] Horm) Basic Metabolic 10/02/2012 [facility] Sodium 138 mmol/L 133- 145 [place] [address] [phone] Potassium 4.3 mmol/L 3.5-5.0 Chloride 103 mmol/L 101-111 Co2 Carbon Dioxide 27.0 mmol/L 22-32 Anion Gap 8.0 mmol/L 2-11 Glucose 92 mg/dL 70-100 Blood Urea Nitrogen 12 mg/dL 6-24 Creatinine 0.70 mg/dL 0.50-1.40 BUN/Creatinine Ratio 17.1 8-20 Calcium 9.7 mg/dL 8.1-9.9 Egfr Non- 99.6 >60 Egfr 128.1 >60 21 Laboratory test 09/13/2012 [facility] Amnisure Membrane [address] [place] [address] Rupture [phone] Renal Function 08/15/2012 [facility] Sodium 135 mmol/L 133- 145 [place] [address] [phone] Potassium 3.6 mmol/L 3.5-5.0 Chloride 105 mmol/L 101-111 Co2 Carbon Dioxide 24.0 mmol/L 22-32 Anion Gap 6.0 mmol/L 2-11 Glucose 104 mg/dL High 70-100 Blood Urea Nitrogen 2 mg/dL Low 6-24 Creatinine 0.50 mg/dL 0.50-1.40 BUN/Creatinine Ratio 4.0 Low 8-20 Calcium 8.6 mg/dL 8.1-9.9 Phosphorus 4.4 mg/dL 2.4-4.7 Albumin 2.6 g/dL Low 3.6-5.4 Egfr Non- 146.9 >60 Egfr 188.9 >60 23 Creatinine 08/15/2012 [facility] Urine Random 42.3 mg/[place] [address] Creatinine [phone] Creatinine 0.6 mg/dL 0.5-1.4 Creatinine Clearance 176 mL/min High 80-125 Urine Collection Time 24 Urine Total Volume 3600 mL Total Protein 24HR 08/15/2012 [facility] Urine Random Total 8 mg /[place] [address] Protein [phone] Urine Total Protein/24HR 288 mg/24Hr High 0-165 CBC Auto 08/15/2012 [facility] White Blood 10.9 10^3/uL High 4.8-10[place]8 [place] [address] Count [phone] Red Blood Count 4.03 10^6/uL 4.0-5.4 Hemoglobin [...] Red Blood Cells % 0 Induced 08/15/2012 [facility] Uric Acid 2.6 mg/dL 2.6-7.2 [place] [address] [phone] Liver Function 08/15/2012 [facility] Total 5.6 g/dL Low 6.2- 8.1 [place] [address] Protein [phone] Globulin 3.0 g/dL 2-4 Albumin/Globulin Ratio 0.9 Low 1-3 Total Bilirubin 0.4 mg/dL 0.4-1.5 Direct Bilirubin 0.1 mg/dL 0.1-0.5 Indirect Bilirubin 0.3 mg/dL 0.3-1.0 Alkaline Phosphatase 214 U/L High 30-110 Alt 16 U/L 14-54 Ast 19 U/L 12-42 Laboratory test 08/06/2012 [facility] Group B Strep (SEE NOTE) 24 [place] [address] Culture Screen [phone] Glucose 06/18/2012 [facility] GTT 2HR (SEE NOTE) 25 Tolerance 2[place] [address] Gestational Gestational [phone] CBC With No Diff 06/18/2012 [facility] White Blood 11.1 High 4.8-1 [place] [address] Count 10^3/uL 0.8 [phone] Red Blood Count 3.78 10^6/uL Low 4.0-5.4 [...] 03/29/2012 [facility] Interpretation SEE BELOW 27 2 [place] Risk For Ontd <1:5000 Age Risk Down [...] Physician Name GEORGINA ARROYO Referring Physician Phone [phone] Referring Physician Npi [id number] Specimen # From Part 1 [id number] Date Of [id number] Collection Date Maternal Weight 229 LBS Est'd Date Of Delivery 09/01/2012 Mother's Ethnic Origin Insulin Depend Diabetic NO Repeat Specimen NO Number Of Fetuses 1 HX Of Neural Tube Defects NO PNL No 02/28/2012 [facility] Rubella Screen [place] [address] [phone] Hemoglobin A1c 5.4 % Less than 6.0 30 Hepatitis B Surface Antigen Nonreactive Nonreactive 31 RPR 02/28/2012 [facility] Syphilis IgG TNP Nonreactive [place], [place] [address]3430 [phone] RPR Nonreactive Nonreactive RPR Titer TNP Pediatric/Maternal YES CBC With No 02/28/2012 [facility] White Blood 8.2 10^3/uL 4.8 -10.8 [place] [address] Count [phone] Red Blood Count 4.37 10^6/uL 4.0-5.4 Hemoglobin 13.0 g/dL 12.0-16.0 Hematocrit 38 % 35-47 Mean Corpuscular Volume 88 fL 80-97 Mean Corpuscular Hemoglobin 30 pg 27-31 Mean Corpuscular HGB Conc 34 g/dL 31-36 Red Cell Distribution Width 14 % 10.5-15 Platelet Count 163 10^3/uL 150-450 Mean Platelet Volume 9 um3 7.4-10.4 Type And Screen 02/28/2012 [facility] Patient [place] [address] [phone] Antibody Screen NEGATIVE HIV 1/2 AB 02/28/2012 [facility] HIV 1 2 Nonreactive Nonreactive [address] [place] [address] Antibody [phone] Laboratory 02/28/2012 [facility] TSH (Thyroid 1.31 MIU/ML 0.34-5.60 [place] [address] Stimulating [phone] Horm) Free T4 0.79 NG/ML 0.61-1.24 Serum Integrated SCRN Part 1 HI 02/28/2012 [facility] Comment SEE BELOW 33 Referring Physician Name DINAJACKELYN Referring Physician Phone [phone] Referring Physician Npi [id number] Date Of 1985 Collection Date 02/28/2012 Maternal [...] < 20 IU/mL <20 GC/Chlamydia Dna 02/07/2012 [facility] GC/Chlamydia (SEE NOTE) 34 [place] [address] Rna [phone] Urine Culture 02/07/2012 [facility] Urine Culture (SEE NOTE) [address] [place] [address] Sensitivities [phone] Laboratory test 09/12/2011 [facility] Cytology [address] [place] [address] ----- <SEE [phone] NOTE> Laboratory test 02/22/2010 [facility] Cytology [address] [facility] [place] [address] ----- <SEE [phone] NOTE> Laboratory test 06/18/2009 [facility] Surgical [address] [place] [address] Pathology ----- <SEE [phone] NOTE> Laboratory test 05/29/2009 [facility] Cytology hold for 39 [address] [place] [address] ----- <SEE HRHPV [phone] NOTE> Laboratory test 02/26/2009 [facility] Surgical [address] [place] [address] Pathology ----- <SEE [phone] NOTE> GC/ZHL On Thin 02/03/2009 [facility] CHL On Thin NEGATIVE Negative [address] [place] [address] Prep Vial [phone] GC On Thin Prep Vial NEGATIVE Negative 42 Laboratory 02/03/2009 [facility] Cytology 43 [place] [address] <SEE NOTE> [phone] HSV AB Igm 02/03/2009 [facility] HSV Igm NOT DETECTED 44 W/Reflex Titer AB,Screen HSV 1 & 2 Igg 02/03/2009 [facility] HSV 1 Igg 0.15 INDEX 45 Type Herpeselect AB HSV 2 Igg Herpeselect AB 0.07 INDEX 46 Hepatitis C AB 02/03/2009 [facility] Hepatitis C AB NON-REACTIVE Non- Reactive Signal To Cutoff Ratio 0.24 Less Than 1.0 Laboratory test 02/03/2009 [facility] HB S Ag NON-REACTIVE Non-Reactive finding W/Reflex Conf Vad 02/03/2009 [facility] Vad Final NONREACTIVE Nonreactive [address] [place] [address] [phone] Laboratory test 02/03/2009 [facility] RPR NON [place]ACT[place] [address] [phone] Laboratory test 07/23/2007 [facility] Cytology [address] [place] [address] <SEE NOTE> [phone] Laboratory test 07/10/2007 [facility] Cytology [address] [place] [address] <SEE NOTE> [phone] GC/ZHL On Thin 07/10/2007 [facility] CHL On Thin NEGATIVE Negative [address] [place] [address] Prep Vial [phone] GC On Thin Prep Vial NEGATIVE Negative 51 Vad 07/10/2007 [facility] Vad Final NONREACTIVE Nonreactive 52 [place] [address] [phone] Laboratory test 07/10/2007 [facility] RPR NON [place]ACT[place] [address] [phone] 1 SEE RESULT BELOW Name: OLIVERIO PRATHER : [address]: Valeri Desir MD Acct: [id number] Unit: [id number] AGE: 30 Location: [facility] Re09/27/16 SEX: F Status: REG REF SPEC: [id number] JORGE L: 09/27/[address]: Valeri Desir MD REQ: [id number] RECD: 09/27/16 STATUS: SOUT _ ORDERED: TP IMAGE ANAL, HPV/Thin Prep COMMENTS: [id number] FINAL DIAGNOSIS Negative for Intraepithelial lesion or [...] was evaluated with the assistance of the [employer] water systems Test Imaging System. Due to cytologic findings at the construction manager microscope, comprehensive manual rescreening by a Cargo Trimmer may be required. The Pap Smear is [...] performed at Main Lab DEPARTMENT OF PATHOLOGY, [address] [place] [address] Charles Solano M.D. Director [facility] # [id number] 2 The high-risk HPV types detected by [...] - 45.3 ng/ml 12 under req # [id number] 13 <5.0 Negative 5.0 - 25.0 Indeterminate (Repeat testing recommended after 72 hours) >25.0 Positive Perimenopausal women can display HCG levels of up to 20 mIU/mL 14 <5.0 Negative 5.0 - 25.0 Indeterminate (Repeat testing recommended after 72 hours) >25.0 Positive Perimenopausal women can display HCG levels of up to 20 mIU/mL 15 SEE RESULT BELOW Name: EUSEBIOOLIVERIO A : [address]: Georgina Arroyo NP Acct: [id number] Unit: [id number] AGE: 29 Location: [facility] Re06/19/15 SEX: F Status: REG REF SPEC: [id number] JORGE L: 06/19/15-[address] [facility] [address]: Georgina Arroyo NP REQ: [id number] RECD: 06/22/15-1050 STATUS: SOUT _ ORDERED: IMAGE [...] (signature on file) TOMAS Garvey (ASCP) 06/22 1238 This Pap test was evaluated with the assistance of the [employer] Medical[employer] Test Imaging System. Due to cytologic findings at the construction manager microscope, comprehensive manual rescreening by a Cargo Trimmer may be required. The Pap Smear is [...] performed at Main Lab DEPARTMENT OF PATHOLOGY, [facility] [place] [address] Charles Solano M.D. Director [facility] # [id number] 16 The high-risk HPV types detected by the assay include: 16, 18, 31, 33, 35, 39, 45, 51, 52, 56, 58, 59, 66, and 68. 17 <5.0 Negative 5.0 - 25.0 Indeterminate >25.0 Positive 18 <5.0 Negative 5.0 - 25.0 Indeterminate >25.0 Positive 19 RUN DATE: 04/03/14 [facility] LAB LIVE PAGE 1 RUN TIME: 1203 [facility] [employer] [place], [place] [address] Specimen Inquiry Name: OLIVERIO PRATHER : [address]: Georgina Arroyo NP Acct: [id number] Unit: [id number] AGE: 28 Location: [facility] Re03/31/14 SEX: F Status: REG REF SPEC: [id number] JORGE L: 03/31/14-[address] [facility] [address]: Georgina Arroyo NP REQ: [id number] RECD: 04/01/14 STATUS: COMP _ SOURCE: URINE SPDESC: ORDERED: Urine Culture QUERIES: Medent Number [id number] Procedure Result Verified Site Urine Culture Final 04/03/14- 1203 ML Organism 1 NORMAL SHAKIR [place] Count 10-25,000 (Moderate) CFU/ML END OF REPORT * ML=Testing performed at Main Lab DEPARTMENT OF PATHOLOGY, [address] [place] [address] Charles Solano M.D. Director [facility] # [id number] 20 Cytology Laboratory [address] [place] [address], [facility] [address] [place] [address] CYTOLOGY REPORT Name: Oliverio Prather : 1985 (Age: 27) Sex: F Location: [facility] GYN [facility]. # [id number] Date Collected: 03/15/2013 Billing #: [id number] Date Received: 03/15/2013 Requisition # [id number] Physician(s): VIVEK ARMSTRONGPElicia Source of Specimen: ENDOCERVICAL/ECTOCERVICAL THIN PREP Clinical Information: Date of Last Menstrual Period: None Provided Menstrual History: : 12/01/12 Dysplasia/Cancer History: Dysplasia Treatment History: Colposcopy & Biopsy Specimen Adequacy: SATISFACTORY FOR EVALUATION. NO ENDOCERVICAL/TRANSFORMATION ZONE. General Categorization: NEGATIVE FOR INTRAEPITHELIAL LESION OR MALIGNANCY. lar Electronic Signature TOMAS Mancia (ASCP) Reported: 03/19/2013 Also seen by :TOMAS Huggins (ASC) [facility] [employer] [facility] HPV High Risk Date Ordered: 03/15/2013 Status: Signed Out Date Reported: 03/19/2013 High Risk NEGATIVE (HPV types 16, 18, 31, 33, 35, 39, 45, 51, 52, 56, 58, 59, 66, 68) [employer] HPV HR Electronic Signature TOMAS Garcia (ASC) [employer] [facility] ICD-9 Code(s) V76.2 V13.22 21 Because [...] <15 (or dialysis) 24 RUN DATE: 08/09/12 [facility] LAB LIVE PAGE 1 RUN TIME: [address] [place] [address] Specimen Inquiry Name: OLIVERIO QUEZADA : [address]: Erika STOVER Acct: [id number] Unit: [id number] AGE: 26 Location: [facility] Re08/06/12 SEX: F Status: REG REF SPEC: [id number] JORGE L: 08/06/12-[address] [facility] [address]: Erika Hauser [facility] REQ: [id number] RECD: 08/07/12 STATUS: COMP _ SOURCE: NIVIA/REC SPDESC: ORDERED: Lizett Mark QUERIES: Medent Number [id number] Procedure Result Verified Site Group B Strep Culture Screen Final 08/09/12 09 ML Organism 1 STREP GROUP B Susceptibility testing of penicillins and other B-lactams approved by FDA for treatment of Streptococcus pyogenes (Group A Strep) and Streptococcus agalactiae (Group B Strep) is not necessary for clinical purposes and need not be done routinely, since as with vancomycin, resistant strains have not been recognized. (CLSI V752-T61;p.66) Positive isolates will be saved for one week. Please call the Microbiology Laboratory if further susceptibility testing is needed. END OF REPORT * ML=Testing performed at Main Lab DEPARTMENT OF PATHOLOGY, [address] [place] [address] Charles Solano M.D. Director [facility] Permit #[id number] 25 GLU Fast 87 Col: 06/18/12 0803 [...] technique. Interpretation reviewed by: Barbara Jackson, Ph.D., [facility]. This is a screening test, not a diagnostic test. This risk assessment is based on demographic data provided by the ordering physician. Please notify the laboratory promptly if any data are incorrect. If you have questions concerning this report: For clinical consultation, call ; For technical questions, call ext [phone]; For recalculations, fax to . This test was developed and its performance characteristics have been determined by [employer] [facility]. Performance characteristics refer to the analytical performance of the test. 30 Therapeutic target for the treatment of diabetes Mellitus patients is <7% HBA1C, and in selective patients <6.0%.Please refer to [place] [employer] Diabetic care guidelines for further [...] performance characteristics have been determined by [employer] [facility]. Performance characteristics refer to the analytical performance of the test. 34 RUN DATE: 02/10/12 [facility] LAB LIVE PAGE 1 RUN TIME: [address] [place] [address] Specimen Inquiry Name: OLIVERIO QUEZADA : [address]: Georgina Arroyo NP Acct: [id number] Unit: [id number] AGE: 26 Location: [facility] Re02/07/12 SEX: F Status: REG REF SPEC: [id number] JORGE L: 02/07/12-[address]: Georgina Arroyo NP REQ: [id number] RECD: 02/08/12 STATUS: COMP _ SOURCE: ENDOCERVIX SPDESC: ORDERED: GC/Chlam RNA QUERIES: Medent Number [id number] Procedure Result Verified Site Chlamydia Trachomatis RNA [...] result may have adverse psychosocial impact, the [facility] recommends retesting by a method using an [...] performed at Main Lab DEPARTMENT OF PATHOLOGY, [facility] Work in Field [place] [address] Charles Solano M.D. Director [facility] Permit #[id number] RUN DATE: 02/10/12 [facility] LAB LIVE PAGE 2 RUN TIME: 1411 [facility] [employer] [place], [place] [address] Specimen Inquiry Patient: OLIVERIO QUEZADA [id number] (Continued) Specimen: [id number] Collected: 02/07/12-1531 Received: 02/08/12-102 (Continued) Procedure Result Verified Site GC (N. gonorrhoeae) RNA Final (continued) 02/10/12- 141 Performance characteristics for detecting C. trachomatis and N. gonorrhoeae are derived from high prevalence populations. Positive results in low prevalence populations should be interpreted carefully with the understanding that the likelihood of a false positive may be higher than a true positive. END OF REPORT * ML=Testing performed at Main Lab DEPARTMENT OF PATHOLOGY, [address] [place] [address] Charles Solano M.D. Director [facility] Permit #[id number] RUN DATE: 02/09/12 [facility] LAB LIVE PAGE 1 RUN TIME: 63[address] [place], [place] [address] Specimen Inquiry Name: OLIVERIO QUEZADA : [address]: Georgina Arroyo NP Acct: [id number] Unit: [id number] AGE: 26 Location: [facility] Re02/07/12 SEX: F Status: REG REF SPEC: [id number] JORGE L: 02/07/12-[address]: Georgina Arroyo NP REQ: [id number] RECD: 02/07/12 STATUS: COMP _ SOURCE: URINE SPDESC: ORDERED: Urine Culture QUERIES: Medent Number [id number] Procedure Result Verified Site Urine Culture Final 02/09/12- 1034 ML Organism 1 NORMAL SHAKIR [place] Count 10-25,000 (Moderate) CFU/ML END OF REPORT * ML=Testing performed at Main Lab DEPARTMENT OF PATHOLOGY, [address] [place] [address] Charles Solano M.D. [facility] Permit #[id number] 36 ---- RUN DATE: 09/13/11 [facility] NMI LIVE PAGE 1 RUN TIME: 1152 Specimen Inquiry RUN USER: INTERFACE -- Name: OLIVERIO QUEZADA#: [id number] Status: REG REF Re09/12/11 Age/Sex: 25/F Unit#: [id number] Location: [facility] : [birth year] -- Specimen: [id number] SOUT Spec Date:09/12/11-[address]: Georgina Arroyo NP Spec Type: CYTOLOGY Received:09/13/11-0848 Copies to: SOURCE ECTOCERVICAL/ENDOCERVICAL Thin Prep with Reflex HPV Test PATIENT INFORMATION ACTUAL COLLECTION DATE: 09/12/11 ? No POST MENOPAUSAL? No HYSTERECTOMY? No LAST MENSTRUAL PERIOD: 08/18/11 DATE OF PRIOR SPECIMEN: 02/22/10 ADEQUACY OF SPECIMEN Satisfactory for evaluation * Transformation zone component identified * DIAGNOSIS NEGATIVE FOR INTRAEPITHELIAL LESION OR MALIGNANCY * This Pap test was evaluated with the assistance of the [employer] MedicalPrep Pap Test Imaging System. The Pap Smear [...] 09/13/11 1151 -- -- DEPARTMENT OF PATHOLOGY, [address] [place] [address] [facility] Permit #[id number] Brea Lopez M.D. Wheel And Caster Repairer Dir verito -- 37 ---- RUN DATE: 02/23/10 [facility] NMI LIVE PAGE 1 RUN TIME: 6295 Specimen Inquiry RUN USER: INTERFACE -- Name: OLIVERIO QUEZADA Status: REG REF Re02/22/10 Age/Sex: 24/F Unit#: [id number] Location: [facility]. : [birth year] -- Specimen: [id number] SOUT Spec Date: 02/22/[address]: Mellisa [...] was evaluated with the assistance of the [employer] Medical[employer] Pap Test Imaging System. The Pap Smear [...] 143 7 -- -- DEPARTMENT OF PATHOLOGY, [address] [place] [address] [facility] Permit #[id number] Brea Lopez M.D. Wheel And Caster Repairer Dir verito -- 36 ---- RUN DATE: 06/19/09 [facility] NMI LIVE PAGE 1 RUN TIME: 1244 Specimen Inquiry RUN USER: INTERFACE -- Name: OLIVERIO QUEZADA Status: REG REF Re06/18/09 Age/Sex: 23/F Unit#: [id number] Location: [facility] : [birth year] -- Specimen: [id number] SOUT Spec Date: 06/18/[address]: Mellisa merida MD Spec Type: SURGICAL P Received: 06/18/09-1348 Copies to: SPECIMEN VULVAR SKIN TAG HISTORY PRE-OP DIAGNOSIS: Skin tag removal. GROSS DESCRIPTION Specimen received in formalin labelled Oliverio Quezada Vulvar Biopsy and consists of one fragment of everett-white tissue measuring 0.4 x 0.3 x 0.2 cm. Submitted entirely, one cassette. DIAGNOSIS Vulva, biopsy: Fibroepithelial polyp. Signed Electronically by: PEEWEE POLANCO 06/19/09 1244 -- -- DEPARTMENT OF PATHOLOGY, [address] [place] [address] [facility] Permit #[id number] Brea Lopez M.D. Assistant Dir ector -- 37 ---- RUN DATE: 06/03/09 [facility] NMI LIVE PAGE 1 RUN TIME: 1619 Specimen Inquiry RUN USER: INTERFACE -- Name: OLIVERIO QUEZADA Accelo[employer]#: [id number] Status: REG REF Re05/29/09 Age/Sex: 23/F Unit#: [id number] Location: [facility] : [birth year] -- Specimen: [id number] Spec Date: 05/29/[address]: Yessenia Garcia TABLE OPERATOR Spec Type: CYTOLOGY Received: 06/01/09-919 Copies to: SOURCE ECTOCERVICAL/ENDOCERVICAL Thin Prep with [...] OR MALIGNANCY * NOTE Specimen sent to [place] for high risk HPV DNA testing on 06/01/09 at 1600 by [facility]. Results will be reported separately in an addendum. ADDENDUM Addendum #1 Entered: 06/03/09-2497 [facility] Human Papilloma Virus test results received with preparation and diagnosis completed by [place], [place]. Results: NEGATIVE High Risk (HPV types 16, 18, 31, 33, 35, 39, 45, 51, 52, 56, 58, 59, 68) -- DEPARTMENT OF PATHOLOGY, [address] [place] [address] [facility] Permit #[id number] Brea Lopez M.D. Wheel And Caster Repairer Dir sellers -- -- RUN DATE: 06/03/09 [facility] NMI LIVE PAGE 2 RUN TIME: 1619 Specimen Inquiry RUN USER: INTERFACE -- Name: DEBRA QUEZADABERLY Status: REG REF Re05/29/09 Age/Sex: 23/F Unit#: [id number] Location: [facility]. : 81 -- -- CONTINUED -- ADDENDUM (Continued) Addendum Review Jayna COLIN([facility]) 06/03/09 -- This Pap test was [...] three years. Initial evaluation performed by Reno ABEL([facility]) 06/01/09 Final Interpretation electronically signed by: Reno ABEL([facility]) 06/01/09 1415 -- -- DEPARTMENT OF PATHOLOGY, [address] [place] [address] [facility] Permit #[id number] Charles Solano M.D. Director Peewee Polanco M.D. Wheel And Caster Repairer Dir verito -- 38 ---- RUN DATE: 03/02/09 [facility] NMI LIVE PAGE 1 RUN TIME: 1408 Specimen Inquiry RUN USER: INTERFACE -- Name: OLIVERIO QUEZADA Acceloise#: [id number] Status: REG REF Re02/26/09 Age/Sex: 23/F Unit#: [id number] Location: [facility] : 83 -- Specimen: [id number] SOUT Spec Date: 02/26/[address]: Mellisa [...] 03/02/09 1407 -- -- DEPARTMENT OF PATHOLOGY, [address] [place] [address] [facility] Permit #[id number] Charles Solano M.D. Director Peewee Polanco M.D. Wheel And Caster Repairer Dir verito -- 39 . A negative [...] mixup. . 43 ---- RUN DATE: 02/04/09 [facility] LIVE PAGE 1 RUN TIME: 1331 Specimen Inquiry RUN USER: INTERFACE -- Name: OLIVERIO QUEZADA Status: REG REF Re02/03/09 Age/Sex: 23/F Unit#: [id number] Location: [facility] : 83 -- Specimen: [id number] DOM Spec Date: 02/03/[address]: Mellisa merida [...] was evaluated with the assistance of the [employer] MedicalPrep Pap Test Imaging System. Due to cytologic findings at the construction manager microscope, comprehensive manual rescreening by a Cargo Trimmer was required. The Pap Smear is a [...] johnny uld be -- DEPARTMENT OF PATHOLOGY, [address] [place] [address] [facility] Permit #[id number] Charles Solano M.D. Director Brea Moran -- -- RUN DATE: 02/04/09 [facility] NMI LIVE PAGE 2 RUN TIME: 1331 Specimen Inquiry RUN USER: INTERFACE -- Name: OLIVERIO QUEZADA Acceloise#: [id number] Status: REG REF Re02/03/09 Age/Sex: 23/F Unit#: [id number] Location: [facility]. : 81 -- -- CONTINUED -- (Continued) obtained and evaluated every one to three years. Initial evaluation performed by Jayna COLIN([facility]) 02/04/09 Final Interpretation electronically signed by: PEEWEE POLANCO 02/04/09 1331 -- -- DEPARTMENT OF PATHOLOGY, [address] [place] [address] [facility] Permit #[id number] Charles Solano M.D. Director Peewee Polanco M.D. Wheel And Caster Repairer verito -- 44 Reference range: NOT DETECTED [...] from confidential records which are protected by [place] State law. State law prohibits you from making further disclosure of this information without the specific written consent of the person to whom it pertains, or as otherwise permitted by law. Any unauthorized further disclosure in violation of state law may result in a fine or residential sentence or both. General authorization for the release of medical or other information is not, except in limited circumstances set forth in Part 63, Title 10, of [facility], sufficient authorization for further disclosure. Disclosure of confidential HIV information that occurs as the result of a general authorization for the release of medical or other information will be in violation of the state law and may result in a fine or a residential sentence. . 48 ---- RUN DATE: 07/27/07 [facility] NMI LIVE PAGE 1 RUN TIME: 1447 Specimen Inquiry RUN USER: INTERFACE -- Name: OLIVERIO QUEZADA Status: REG REF Re07/23/07 Age/Sex: 21/F Unit#: [id number] Location: [facility] : 81 -- Specimen: [id number] SOUT Spec Date: 07/23/07 [facility] [place] Dr: Yessenia Garcia [facility] Spec Type: CYTOLOGY Received: 07/24/07 Copies to: [...] significance (ASC-US) * NOTE Specimen sent to [place], [place] for high risk HPV DNA testing on 07/24/07 at 1600 by DB. ADDENDUM Addendum #1 Entered: 07/27/07 [facility] Human Papilloma Virus test results received with preparation and diagnosis completed by [place], [place]. Results: NEGATIVE High Risk (HPV types 16, 18, 31, 33, 35, 39, 45, 51, 52, 56, 58, 59, 68) -- DEPARTMENT OF PATHOLOGY, [address] [place] [address] [facility] Permit #[id number] Charles Solano M.D. Director of Laboratories -- -- RUN DATE: 07/27/07 [facility] NMI LIVE PAGE 2 RUN TIME: 0237 Specimen Inquiry RUN USER: INTERFACE -- Name: OLIVERIO QUEZADA Status: REG REF Re07/23/07 Age/Sex: 21/F Unit#: [id number] Location: [facility] : 81 -- -- CONTINUED -- ADDENDUM (Continued) (Original consultation report to follow). Addendum Review Jayna COLIN([facility]) 07/27/07 -- This Pap test was evaluated with the assistance of the [employer] MedicalPrep Pap Test Imaging System. Due to cytologic findings at the construction manager microscope, comprehensive manual rescreening by a Cargo Trimmer was required. The Pap Smear is a [...] three years. Initial evaluation performed by Jayna COLIN([facility]) 07/24/07 Final Interpretation electronically signed by: CHARLES SOLANO MD 07/24/07 13 13 -- -- DEPARTMENT OF PATHOLOGY, [address] [place] [address] [facility] Permit #[id number] 010 Charles Solano M.D. Director of Laboratories -- 47 ---- RUN DATE: 07/13/07 [facility] NMI LIVE PAGE 1 RUN TIME: 1215 Specimen Inquiry RUN USER: INTERFACE [id number] OLIVERIO QUEZADA / <REG REF 07/09> ([id number]) Yessenia Galvez CNP -- Specimen: [id number] SOUT Spec Date: 07/10/07 [facility] [place] Dr: Yessenia Garcia TABLE OPERATOR Spec Type: CYTOLOGY Received: 07/11/07 Copies to: [...] [place] ABEL([facility]) 07/12/07 -- DEPARTMENT OF PATHOLOGY, [address] [place] [address] [facility] Permit #[id number] 010 Charles Solano M.D. Director of [employer] -- -- RUN DATE: 07/13/07 [facility] NMI LIVE PAGE 2 RUN TIME: 1215 Specimen Inquiry RUN USER: INTERFACE -- SPEC #: [id number] PATIENT: OLIVERIO QUEZADA #[id number] (Continued) -- Final Interpretation electronically signed by: CHARLES SOLANO MD 07/13/07 15 -- -- DEPARTMENT OF PATHOLOGY, [address] [place] [address] [facility] Permit #[id number] [id number] Charles Solano M.D. Director of Laboratories [...] from confidential records which are protected by [place] State law. State law prohibits you from making further disclosure of this information without the specific written consent of the person to whom it pertains, or as otherwise permitted by law. Any unauthorized further disclosure in violation of state law may result in a fine or residential sentence or both. General authorization for the release of medical or other information is not, except in limited circumstances set forth in Part 63, Title 10, of [facility], sufficient authorization for further disclosure. Disclosure of confidential HIV information that occurs as the result of a general authorization for the release of medical or other information will be in violation of the state law and may result in a fine or a residential sentence. . Procedures Date Code Description Status 11/02/2017 50799774 Mammogram Completed 07/01/2015 87929 Injection Intramuscular Or Subcutaneous Completed 06/24/2015 11390 Echography Transvaginal Completed 03/31/2014 36563 OB Ultrasound First Trimester Completed 09/14/2012 69599 Obstetric Care Routine Completed 09/11/2012 25193 Echography Uterus Limited Completed 09/11/2012 19545 Non-Stress Test Completed 08/06/2012 04741 Echography Uterus Follow-Up Or Repeat Completed 07/06/2012 96970 Echography Uterus Follow-Up Or Repeat Completed 04/27/2012 49985 Echography Uterus Complete Completed 02/28/2012 92369 Injection Intramuscular Or Subcutaneous Completed 02/28/2012 43793 OB Ultrasound First Trimester Completed 11/16/2009 94882 Injection Intramuscular Or Subcutaneous Completed 06/18/2009 93327 Biopsy Cervix Completed 02/26/2009 30892 Colposcopy W/Biopsy Cervix/Endocervical Curettage Completed 07/23/2007 49670 Echography Transvaginal Completed 07/23/2007 24010 Echography Transvaginal Completed Encounters Type Date Location Provider Dx Diagnosis Office Visit 10/12/2017 [facility] KAUR Magana Z01.419 Encntr for liquid loader exam 9:00a (general) (routine) w/o abn findings N64.59 Other signs and symptoms in breast Office Visit 09/27/2016 8:00a [facility] Valeri Z01.419 Encntr for liquid loader exam MD Thang (general) (routine) w/o abn findings Office Visit 07/01/2015 9:00a [facility] Opal Aldridge O00.9 Ectopic , M.D. unspecified Office Visit 06/30/2015 11:00a [facility] Yessenia Rinaldi, O36.80x0 w ANP-C inconclusive viability, unsp Office Visit 06/24/2015 9:40a [facility] Yessenia Rinaldi, O20.8 Other hemorrhage in ANP-C early Office Visit 06/19/2015 3:30p [facility] Georgina Arroyo, N91.2 Amenorrhea, [employer] unspecified Z01.419 Encntr for liquid loader exam (general) (routine) w/o abn findings Office Visit 04/15/2014 8:30a [facility] Georgina Arroyo, v23.87 [employer]ER [employer] W/Inconclusive Viabilty 632 Missed Office Visit 03/31/2014 3:00p [facility] Georgina Arroyo [employer]ER [employer] v28.9 Screening Unspec 646.83 Complication Spec Other Antepartum Cond Or Compl Office Visit 03/15/2013 10:00a [facility] Georgina Arroyo, V72.31 Routine Weight And Balance Control Agent [employer] Examination V76.2 Screening Malignant Neoplasm Cervix Office Visit 09/12/2011 1:00p [facility] Office Georgina Arroyo, V72.31 Routine Weight And Balance Control Agent [employer]ER [employer] Examination V76.2 Screening Malignant Neoplasm Cervix V25.41 Contraceptive Pill Surveillance Office Visit 07/15/2010 1:00p [facility] Yessenia Rinaldi, V25.49 Contraceptive Other ANP-C Method Surveillance Office Visit 02/22/2010 2:00p [facility] Office Mellisa Lin V72.31 Routine Weight And Balance Control Agent Brea Taylor Examination V76.2 Screening Malignant Neoplasm [...] Office Visit 03/17/2009 1:20p [facility] Sophia Villarrealmukesh, 795.03 Pap Smear Cervix Suite Q CNM W/LGSIL Office Visit 02/26/2009 1:20p [facility] Office Mellisa Lin 795.03 Pap Smear Cervix Taylor, W/LGSIL Brea 079.4 Human Papilloma Virus V72.40 Test Unconfirm Office Visit 02/03/2009 8:20a [facility] Mellisa Taylor, V72.31 Routine Weight And Balance Control Agent M.D. Examination V76.2 Screening Malignant Neoplasm Cervix V74.5 Screening Examination Venereal Disease v74.5 Screening Examination Venereal Disease Office Visit 07/23/2007 11:00a [facility] Office Yessenia Gentry, 626.7 Postcoital Bleeding ANP-C V76.2 Screening Malignant Neoplasm Cervix V74.5 Screening Examination Venereal Disease Office Visit 07/10/2007 9:20a [facility] Office Yessenialayton Rinaldi, V72.31 Routine Weight And Balance Control Agent ANP-C Examination V76.2 Screening Malignant Neoplasm Cervix [...] plans to have drawn in lab in [place].Day 7 Quant [facility] Monday07/07/2015. Expect at least [...] plans to have drawn in lab in [place].Day 7 Quant [facility] Monday07/07/2015. Expect at least 15% decrease from Day 4.If appropriate decrease, rec Quant BHCG weekly until negative. Reviewed precautions.Pelvic rest. Rec no ETOH, no folic acid supplements. Percocet one tablet po q4-6 prn pain #12. If inadequate relief with Percocet, recommend ER evaluation.
--- OUTSIDE RECORDS SUMMARY | 2018-08-02 18:47 | XMS REPORT | Continuity of Care Document ---
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 Total Bilirubin 0.3 mg/dL 0.2-1.3 GFR Non- >60 ml/min/1.73m^ >=60 GFR >60 ml/min/1.73m^ >=60 Laboratory test finding 12/15/2015 [facility] Free T3 2.72 pg/mL 2.00-4.90 TSH 1.31 mIU/L 0.50-6.00 Free T4 0.97 ng/dL 0.75-1.54 Lipid Profile 12/15/2015 [facility] Cholesterol 206 mg/dL High 120- 200 Triglycerides 536 mg/dL High 30-200 HDL Cholesterol 29 mg/dL Low 30-85 LDL (Calculated) 70 CALC 0-129 VLDL Cholesterol 107 mg/dL High 0-50 HDL Risk Factor 7.1 CALC High 0.0-4.4 Antigliadin IgG 12/15/2015 [facility] Reflex 25 units High 0-19 19 (kaltag) [address] [facility] [place] [address] [phone] - Note: See Comment: 20 tTG/DGP Screen 12/15/2015 [facility] tTG/DGP Screen Negative Negative [address] [place] [address] (013)- - Laboratory test 12/15/2015 [facility] Cortisol - Am 11.1 g/dL 6.2-19.4 finding [address] [place] [address] (141)- - Thyroid Peroxidase (Tpo) Ab 333 IU/mL High 0-34 Thyroglobulin Antibody 2.7 IU/mL High 0.0-0.9 21 PDF [id number] SEE IMAGE Gluten Sensitivity 12/15/2015 [facility] tTG/DGP Negative Negative Screen W/RFLX [address] [facility] [place] [address] (748)- - Laboratory test 12/15/2015 [facility] Insulin 21.1 uIU/mL 2.6-24.9 finding [address] [place] [address] (173)- - Comprehensive 09/04/2015 [facility] Sodium 140 mEq/L 134-149 Metabolic Prof Potassium 4.0 mEq/L 3.6-5.5 Chloride 98 mEq/L 94-112 Carbon Dioxide 28 mEq/L 21-32 Glucose 111 mg/dL High 70-105 BUN 12 mg/dL 6-26 Creatinine 0.8 mg/dL 0.6-1.4 BUN/Creat Ratio 15.0 CALC 8.0-36.0 Calcium 9.2 mg/dL 8.6-10.2 Total Protein 8.1 g/dL 6.4-8.3 Albumin 4.5 g/dL 3.8-5.5 Globulin 3.6 g/dL 2.0-4.8 A/G Ratio 1.3 CALC 0.6-2.3 Alk. Phosphatase 80 U/L 30-110 Alt (SGPT) 15 U/L 7-35 Ast (Sgot) 17 U/L 5-34 Total Bilirubin 0.2 mg/dL 0.2-1.3 GFR Non- >60 ml/min/1.73m^ >=60 GFR >60 ml/min/1.73m^ >=60 Laboratory test 09/04/2015 [facility] Medicine Brain Natural <5.0 pg/mL < 100 finding (607)- - Peptide Ua - Non Micro 09/04/2015 [facility] Appearance clear (Fma) (607)- - Color yellow Glucose, Urine (Fma/CMC/CTX) neg Bilirubin neg Ketones neg SP Grav 1.020 Blood moderate # mens 09/01/15 PH 7.0 Protein trace # mens 09/01/15 Urobil 0.2 Nitrite neg Leukocytes (Fma/CMC/[facility]) neg Comprehensive Metabolic Prof 06/23/2015 [facility] Sodium 140 mEq/L 134-149 Potassium 4.3 mEq/L 3.6-5.5 Chloride 106 mEq/L 94-112 Carbon Dioxide 27 mEq/L 21-32 Glucose 104 mg/dL 70-105 BUN 4 mg/dL Low 6-26 22 Creatinine 0.8 mg/dL 0.6-1.4 BUN/Creat Ratio 5.0 CALC Low 8.0-36.0 Calcium 9.0 mg/dL 8.6-10.2 Total Protein 7.2 g/dL 6.4-8.3 Albumin 4.5 g/dL 3.8-5.5 Globulin 2.7 g/dL 2.0-4.8 A/G Ratio 1.7 CALC 0.6-2.3 Alk. Phosphatase 51 U/L 30-110 Alt (SGPT) 21 U/L 7-35 Ast (Sgot) 23 U/L 5-34 Total Bilirubin 0.2 mg/dL 0.2-1.3 GFR Non- >60 ml/min/1.73m^ >=60 GFR >60 ml/min/1.73m^ >=60 CBC Electronic ([facility]) 06/23/2015 [facility] WBC 6.8 3.6-9.6 (607)- - RBC 4.63 3.90-5.70 Hemoglobin (a/CMC/CTX) 12.8 g/dL 12.1 - 17.2 Hematocrit (a/CMC/CTX) 39.5 % 36.1 - 50.3 Platelets 265 10^3/ul 150-400 Lymph% 38.5 % 17.0-48.0 Mixed% 4.0 Neutrophils % 57.5 Mean Corpuscular Vol 85 82.2-97.4 Mean Corpuscular Hemoglobin 27.5 Low 27.6-33.3 Mean Corpuscular Hemo Concen 32.3 32.0-36.0 RDW 15.1 High 11.6-13.7 Mean Platelet Volume 6.8 5.5-11.0 Laboratory test finding 06/19/2015 [facility] TSH (Thyroid Stim 1.39 ?IU/mL N 0.34-5.60 Horm) Free T4 (Free Thyroxine) 0.88 ng/dL N 0.61-1.12 HCG 2837.00 mIU/mL N 23 CBC Manual Diff-[facility] 05/28/2015 [facility] WBC 7.4 3.6-9.6 (607)- - RBC 4.92 3.90-5.70 Hemoglobin (a/CMC/CTX) 13.2 g/dL 12.1 - 17.2 Hematocrit (a/CMC/CTX) 41.3 % 36.1 - 50.3 Mean Corpuscular Vol 84 82.2-97.4 Mean Corpuscular Hemoglobin 26.9 Low 27.6-33.3 Mean Corpuscular Hemo Concen 32.0 32.0-36.0 Platelets 359 10^3/ul 150-400 RDW 13.2 11.6-13.7 Mean Platelet Volume 6.7 5.5-11.0 Neutrophil 52 Band 4 Lymphocytes 40 Monocyte 4 Z#Comment rbc/plts normal Panel [id number] 05/28/2015 [facility] HIV 1/O/2 <1.00 <1.00 24, 25 Nys PT Only [address] [facility] [place] [place] [address] (609)- - HIV 1/O/2 Abs, Qual Non Reactive Non Reactive 26 Hepatitis Panel, 05/28/2015 [facility] Hep A Ab, Negative Negative Acute [address] [facility] [place] [address] (603)- - HBsAg Screen Negative Negative Hep B Core Ab, IgM Negative Negative Hep C Virus Ab <0.1 s/coratio 0.0-0.9 27 Laboratory test finding 05/28/2015 [facility] LDH 158 IU/L [id number] [address] [place] [address] (601)- - RPR Non Reactive Non Reactive Ebv Acute 05/28/2015 [facility] Ebv Ab Vca, <36.0 U/mL 0.0-35.9 28 Infection [address] [facility] [place] [address] (60)- - Ebv Early Antigen Ab, IgG 73.2 U/mL High 0.0-8.9 29 Ebv Ab Vca, IgG 136.0 U/mL High 0.0-17.9 30 Ebv Nuclear Antigen Ab, IgG 555.0 U/mL High 0.0-17.9 31 Interpretation: See Comment: 32 Ebv Acute 03/12/2015 [facility] Ebv Ab <36.0 U/mL 0.0-35.9 33, [address] [place] [address] Vca, [place] [address] (600)- - Ebv Early Antigen Ab, IgG 85.5 U/mL High 0.0-8.9 35 Ebv Ab Vca, IgG 132.0 U/mL High 0.0-17.9 36 Ebv Nuclear Antigen Ab, IgG >600.0 U/mL High 0.0-17.9 37 Interpretation: See Comment: 38 Laboratory test 03/12/2015 [facility] Monospot (Fma/[facility]) neg finding (988)- - CBC Manual Diff-Fma 03/12/2015 [facility] WBC 4.8 3.6-9.6 (607)- - RBC 4.66 3.90-5.70 Hemoglobin (Fma/CMC/CTX) 13.0 g/dL 12.1 - 17.2 Hematocrit (Fma/CMC/CTX) 39.8 % 36.1 - 50.3 Mean Corpuscular Vol 86 82.2-97.4 Mean Corpuscular Hemoglobin 27.8 27.6-33.3 Mean Corpuscular Hemo Concen 33.0 32.0-36.0 Platelets 240 10^3/ul 150-400 RDW 13.8 High 11.6-13.7 Mean Platelet Volume 6.8 5.5-11.0 Neutrophil 55 Band 1 Lymphocytes 41 Monocyte 2 Atypical Lymph 1 Z#Comment rbc/plts normal Laboratory test finding 03/12/2015 [facility] Quickstrep neg Negative (607)- - Throat - Beta Strep Fma negative@48hrs Comprehensive Metabolic Prof 03/02/2015 [facility] Sodium 140 mEq/L 134-149 Potassium 4.5 mEq/L 3.6-5.5 Chloride 101 mEq/L 94-112 Carbon Dioxide 21 mEq/L 21-32 Glucose 100 mg/dL 70-105 BUN 14 mg/dL 6-26 Creatinine 0.9 mg/dL 0.6-1.4 BUN/Creat Ratio 15.6 CALC 8.0-36.0 Calcium 9.3 mg/dL 8.6-10.2 Total Protein 8.2 g/dL 6.4-8.3 Albumin 4.6 g/dL 3.8-5.5 Globulin 3.6 g/dL 2.0-4.8 A/G Ratio 1.3 CALC 0.6-2.3 Alk. Phosphatase 64 U/L 30-110 Alt (SGPT) 13 U/L 7-35 Ast (Sgot) 30 U/L 5-34 Total Bilirubin 0.4 mg/dL 0.2-1.3 GFR Non- >60 ml/min/1.73m^ >=60 GFR >60 ml/min/1.73m^ >=60 Lipid Profile 03/02/2015 [facility] Cholesterol 185 mg/dL 120-200 Triglycerides 304 mg/dL High 30-200 HDL Cholesterol 35 mg/dL 30-85 LDL (Calculated) 89 CALC 0-129 VLDL Cholesterol 61 mg/dL High 0-50 HDL Risk Factor 5.3 CALC High 0.0-4.4 Complete Blood Count 03/02/2015 [facility] WBC 5.1 x10^3/UL 3.6- 9.6 RBC 5.00 x10^6/UL 3.90-5.70 HGB 13.9 g/dL 12.1-17.2 HCT 41 % 36-50 MCV 82.0 fL Low 82.2-97.4 MCH 27.8 pg 27.6-33.3 MCHC 33.8 g/dL 33.0-35.5 RDW 14.8 % High 11.6-13.7 PLT 281 x10^3/UL 150-400 MPV 6.4 fL Low 7.4-10.4 Gran # 3.1 x10^3/UL 1.5-7.2 Lymph# 1.8 x10^3/UL 0.7-4.9 Dolores# 0.2 x10^3/UL 0.1-0.9 Gran % 58.7 % 42.2-75.2 Lymph % 36.3 % 20.5-51.1 Dolores% 5.0 % 1.7-9.3 Laboratory test finding 03/02/2015 [facility] LDL, Direct 90 mg/dL 0-130 Laboratory test finding 02/24/2015 [facility] [place] [facility] [place] Vitamin B12 233 pg/mL N 180-914 39 Intrinsic Factor Blocking AB Negative N Negative 40 Laboratory test finding 12/26/2014 [facility] [place] [facility] [place] Erythrocyte Sed Rate 21 mm/Hr High 0-14 Lyme Disease Serology Negative N Negative 41 CBC Auto Diff 12/26/2014 [facility] [place] [facility] [place] White Blood Count 7.0 10^3/uL N 4.8-10.8 Red Blood Count 4.73 10^6/uL N 4.0-5.4 Hemoglobin 12.8 g/dL N 12.0-16.0 Hematocrit 40 % N 35-47 Mean Corpuscular Volume 84 fL N 80-97 Mean Corpuscular Hemoglobin 27 pg N 27-31 Mean Corpuscular HGB Conc 32 g/dL N 31-36 Red Cell Distribution Width 14 % N 10.5-15 Platelet Count 241 10^3/uL N 150-450 Mean Platelet Volume 9 um3 N 7.4-10.4 Abs Neutrophils 3.6 10^3/uL N 1.5-7.7 Abs Lymphocytes 2.9 10^3/uL N 1.0-4.8 Abs Monocytes 0.4 10^3/uL N 0-0.8 Abs Eosinophils 0.1 10^3/uL N 0-0.6 Abs Basophils 0.1 10^3/uL N 0-0.2 Abs Nucleated RBC 0.01 10^3/uL N Granulocyte % 51.7 % N 38-83 Lymphocyte % 41.0 % N 25-47 Monocyte % 5.5 % N 1-9 Eosinophil % 0.8 % N 0-6 Basophil % 1.0 % N 0-2 Nucleated Red Blood Cells % 0.2 N Laboratory test finding 12/26/2014 [facility] [place] [facility] [place]SH (Thyroid Stim 4.83 ?IU/mL N 0.34-5.60 Horm) Comp Metabolic Panel 12/26/2014 [facility] [place] [facility] [place] Sodium 134 mmol/L N 133-145 Potassium 3.9 mmol/L N 3.5-5.0 Chloride 100 mmol/L Low 101-111 Co2 Carbon Dioxide 28 mmol/L N 22-32 Anion Gap 6 mmol/L N 2-11 Glucose 97 mg/dL N 70-100 Blood Urea Nitrogen 12 mg/dL N 6-24 Creatinine 0.92 mg/dL N 0.51-0.95 BUN/Creatinine Ratio 13.0 N 8-20 Calcium 8.6 mg/dL N 8.6-10.3 Total Protein 6.9 g/dL N 6.4-8.9 Albumin 4.1 g/dL N 3.2-5.2 Globulin 2.8 g/dL N 2-4 Albumin/Globulin Ratio 1.5 N 1-3 Total Bilirubin 0.40 mg/dL N 0.2-1.0 Alkaline Phosphatase 62 U/L N 34-104 Alt 12 U/L N 7-52 Ast 14 U/L N 13-39 Egfr Non- 71.2 N >60 Egfr 91.6 N >60 42 Complete Blood Count 07/31/2014 [facility] WBC 6.5 x10^3/UL 3.6- 9.6 RBC 4.89 x10^6/UL 3.90-5.70 HGB 13.8 g/dL 12.1-17.2 HCT 41 % 36-50 MCV 84.0 fL 82.2-97.4 MCH 28.1 pg 27.6-33.3 MCHC 33.4 g/dL 33.0-35.5 RDW 14.0 % High 11.6-13.7 PLT 287 x10^3/UL 150-400 MPV 7.2 fL Low 7.4-10.4 Gran # 3.8 x10^3/UL 1.5-7.2 Lymph# 2.5 x10^3/UL 0.7-4.9 Dolores# 0.2 x10^3/UL 0.1-0.9 Gran % 57.3 % 42.2-75.2 Lymph % 38.6 % 20.5-51.1 Dolores% 4.1 % 1.7-9.3 Laboratory test 02/25/2014 [facility] [place] [facility] [place] (Thyroid 1.37 IU/mL N 0.34-5.60 finding Stimulating Horm) Beta HCG Quantitative 94.19 IU/mL High 0.0-5.0 43 Laboratory test 12/04/2013 [facility] [place] [facility] [place] TSH (Thyroid 0.66 IU/mL 0.34-5.60 finding Stimulating Horm) Follicle Stimulating Hormone 6.3 IU/mL 44 Luteinizing Hormone 7.6 IU/mL 45 Prolactin 13.7 ng/mL 1.0-25.0 Laboratory test finding 03/28/2013 [facility] [place] [facility] [place] Vitamin B12 242 pg/mL 180-914 Free T4 0.87 ng/mL 0.61-1.24 Total T3 1.06 ng/mL 0.5-1.7 Free T3 3.37 pg/mL 2.39-6.79 TSH (Thyroid Stimulating Horm) 0.60 miu/mL 0.34-5.60 Laboratory test finding 02/15/2013 [facility] [place] [facility] [place] P[place] Related Peptide 0.4 pmol/L < 2.0 46 Laboratory test finding 02/12/2013 [facility] [place] [facility] [place] Calcium 9.4 mg/dL 8.1-9.9 Free T4 0.56 ng/mL Low 0.61-1.24 Free T3 3.25 pg/mL 2.39-6.79 TSH (Thyroid Stimulating Horm) 12.25 miu/mL High 0.34-5.60 Pthi 02/12/2013 [facility] [place] [facility] [place] Intact 1.9 pmol/L 1.3-9.0 Calcium (PTH Intact) 9.4 mg/dL 8.1-9.9 Laboratory test 02/12/2013 [facility] [place] [facility] [place] T3 Uptake 27 % 20 - 37 47 finding Laboratory test 02/07/2013 [facility] TSH 13.24 High 0.50-6.00 48 finding mIU/L Vitamin D, 25 02/07/2013 [facility] [place] [facility] [place] 25-Hydroxy <4.0 Hydroxy Vitamin D2 ng/mL 25-Hydroxy Vitamin D3 35 ng/mL 25-Hydroxy Vitamin D Total 35 ng/mL 49 Iron & Iron Binding Capacity 02/07/2013 [facility] [place] [facility] [place] Iron 44 g/dL 28-170 Unsaturated Iron Binding 341 g/dL Total Iron Binding Capacity 385 g/dL 250-450 % Iron Saturation 11 % Low 15-55 Thyroglobulin AB 02/07/2013 [facility] [place] [facility] [place] Thyroglobulin Antibody 548 IU/mL Abnormal <22 50 Screen Thyroglobulin Tumor Marker 44 ng/mL Abnormal 51 Thyroid 02/07/2013 [facility] [place] [facility] [place] Thyroid > 996.0 High Less Than Autoantibodies Peroxidase IU/mL 9.0 Profile Antibodies Ua - Non Micro (a) 02/04/2013 [facility] Appearance CLEAR (607)- - Color YELLOW Glucose, Urine (a/[facility] [place]CTX) NEG Bilirubin NEG Ketones TRACE SP Grav 1.025 Blood NEG PH 6.0 Protein NEG Urobil 0.2 Nitrite NEG Leukocytes ([facility] [place]) NEG CBC Electronic ([facility]) 01/16/2013 [facility] WBC 5.9 3.6-9.6 (607)- - RBC 4.83 3.90-5.70 Hemoglobin (a/CMC/CTX) 13.8 g/dL 12.1 - 17.2 Hematocrit (a/[facility] [place]CTX) 41.5 % 36.1 - 50.3 Platelets 232 10^3/ul 150-400 Lymph% 44.1 20.5-51.1 Mixed% 5.2 Neutrophils % 50.7 Mean Corpuscular Vol 86 82.2-97.4 Mean Corpuscular Hemoglobin 28.5 27.6-33.3 Mean Corpuscular Hemo Concen 33.2 32.0-36.0 RDW 13.7 11.6-13.7 Mean Platelet Volume 6.7 6.5-11.0 Comprehensive Metabolic Prof 01/16/2013 [facility] Albumin 4.7 g/dL 3.8-5.5 Alk. Phos. 107 U/L 30-110 Alt (SGPT) 19 U/L 7-35 Ast (Sgot) 23 U/L 5-34 BUN 11 mg/dL 6-26 Calcium 9.0 mg/dL 8.6-10.2 Chloride 99 mEq/L 94-112 Creatinine 1.0 mg/dL 0.6-1.4 Carbon Dioxide 26 mEq/L 21-32 Glucose 88 mg/dL 70-105 Sodium 139 mEq/L 134-149 Total Bilirubin 0.5 mg/dL 0.2-1.3 Total Protein 7.6 g/dL 6.3-8.1 Potassium 4.2 mEq/L 3.6-5.5 Globulin 2.9 g/dL 2.0-4.8 A/G Ratio 1.6 Calc 0.6-2.3 BUN/Creat Ratio 11.4 Calc 8.0-36.0 Lipid Profile 01/16/2013 [facility] Cholesterol 301 mg/dL High 120- 200 HDL 46 mg/dL 30-85 Triglycerides 236 mg/dL High 30-200 HDL Risk Factor 6.5 CALC High 0.0-4.4 LDL (Calculated) 207 CALC High 0-129 VLDL (Calculated) 47 mg/dL 0-50 Laboratory test finding 10/06/2012 [facility] [place] [facility] [place] Troponin I 0 ng/mL 0-0.06 52 TSH (Thyroid Stimulating Horm) 1.61 miu/mL 0.34-5.60 B Type Natriuretic Peptide 27.0 pg/mL 0-100 Comp Metabolic Panel 10/06/2012 [facility] Sodium 136 mmol/L 133-145 Potassium 3.6 mmol/L 3.5-5.0 Chloride 104 mmol/L 101-111 Co2 Carbon Dioxide 24.0 mmol/L 22-32 Anion Gap 8.0 mmol/L 2-11 Glucose 89 mg/dL 70-100 Blood Urea Nitrogen 16 mg/dL 6-24 Creatinine 0.70 mg/dL 0.50-1.40 BUN/Creatinine Ratio 22.9 High 8-20 Calcium 8.9 mg/dL 8.1-9.9 Total Protein 7.1 g/dL 6.2-8.1 Albumin 3.6 g/dL 3.6-5.4 Globulin 3.5 g/dL 2-4 Albumin/Globulin Ratio 1.0 1-3 Total Bilirubin 0.5 mg/dL 0.4-1.5 Alkaline Phosphatase 113 U/L High 30-110 Alt 22 U/L 14-54 Ast 25 U/L 12-42 Egfr Non- 99.6 >60 Egfr 128.1 >60 53 Urinalysis 10/06/2012 [facility] [place] [facility] [place]rine Color Yellow Urine Appearance Clear Urine Specific Mason 1.051 High 1.010-1.030 54 Urine Esterase 1+ Abnormal Negative Urine Nitrate Negative Negative Urine Urobilinogen Negative E.U./dL Negative Urine Protein Negative mg/dL Negative Urine pH 8.0 5-9 Urine Blood 3+ Abnormal Negative Urine Ketones Negative mg/dL Negative Urine Bilirubin Negative Negative Urine Glucose Negative mg/dL Negative Urine Microscopic 10/06/2012 [facility] [place] [facility] [place] Urine WBC None Seen None Seen Urine RBC 3+ (>10 /hpf) None Seen CBC Auto Diff 10/06/2012 [facility] [place] [facility] [place] White Blood Count 6.4 10^3/uL 4.8-10.8 Red Blood Count 5.18 10^6/uL 4.0-5.4 Hemoglobin 13.7 g/dL 12.0-16.0 Hematocrit 43 % 35-47 Mean Corpuscular Volume 82 fL 80-97 Mean Corpuscular Hemoglobin 26 pg Low 27-31 Mean Corpuscular HGB Conc 32 g/dL 31-36 Red Cell Distribution Width 17 % High 10.5-15 Platelet Count 225 10^3/uL 150-450 Mean Platelet Volume 9 um3 7.4-10.4 Abs Neutrophils 2.9 10^3/uL 1.5-7.7 Abs Lymphocytes 2.8 10^3/uL 1.0-4.8 Abs Monocytes 0.4 10^3/uL 0-0.8 Abs Eosinophils 0.2 10^3/uL 0-0.6 Abs Basophils 0.1 10^3/uL 0-0.2 Abs Nucleated RBC 0 10^3/uL Granulocyte % 46.3 % 38-83 Lymphocyte % 44.5 % 25-47 Monocyte % 5.7 % 1-9 Eosinophil % 2.7 % 0-6 Basophil % 0.8 % 0-2 Nucleated Red Blood Cells % 0.1 Urine Culture And 10/06/2012 [facility] [place] [facility] [place] Urine Culture (SEE NOTE) 55 Sensitivities CBC With Manual Diff 10/02/2012 [facility] [place] [facility] [place] White Blood Count 5.5 10^3/uL 4.8- 10.8 Red Blood Count 5.17 10^6/uL 4.0-5.4 Hemoglobin [...] RBC Morphology Normal Normal Laboratory test 10/02/2012 [facility] TSH (Thyroid 0.50 miu/mL 0.34-5.60 finding Stimulating Horm) Basic Metabolic Panel 10/02/2012 [facility] Sodium 138 mmol/L 133-145 Potassium 4.3 mmol/L 3.5-5.0 Chloride 103 mmol/L 101-111 Co2 Carbon Dioxide 27.0 mmol/L 22-32 Anion Gap 8.0 mmol/L 2-11 Glucose 92 mg/dL 70-100 Blood Urea Nitrogen 12 mg/dL 6-24 Creatinine 0.70 mg/dL 0.50-1.40 BUN/Creatinine Ratio 17.1 8-20 Calcium 9.7 mg/dL 8.1-9.9 Egfr Non- 99.6 >60 Egfr 128.1 >60 56 Urine (Fma) 01/13/2012 [facility] Medicine SP Grav 1.020 (607)- - Urine, (Fma/CMC/CTX) pos Laboratory 01/13/2012 [facility] [place], [id number] Abnormal 57, 58 test finding [address] Quantitative mIU/[place] [address] [phone] Lipid Profile 09/23/2011 [facility] Cholesterol 209 mg/dL High 120 -20 0 HDL 37 mg/dL 30-85 Triglycerides 103 mg/dL 30-200 HDL Risk Factor 5.6 CALC High 0.0-4.0 LDL (Calculated) 151 CALC High 0-129 VLDL (Calculated) 21 mg/dL 0-50 CBC Electronic (a) 09/23/2011 [facility] WBC 6.7 3.6-9.6 (607)- - RBC 4.48 3.90-5.70 Hemoglobin (Fma/CMC/CTX) 12.5 g/dL 12.1 - 17.2 Hematocrit (Fma/CMC/CTX) 38.9 % 36.1 - 50.3 Platelets 290 10^3/ul 150-400 Lymph% 35.0 20.5-51.1 Mixed% 4.5 Neutrophils % 60.5 Mean Corpuscular Vol 87 82.2-97.4 Mean Corpuscular Hemoglobin 27.8 27.6-33.3 Mean Corpuscular Hemo Concen 32.1 32.0-36.0 RDW 14.9 High 11.6-13.7 Mean Platelet Volume 7.3 6.5-11.0 Iron/Tibc,%Sat Group 09/23/2011 [facility] Iron 70 g/dL 30-158 59 [address] [place] [address] [phone] Total Iron Binding Cap. 377 g/dL 250-450 % Iron Saturation 18.6 % 13.0-45.0 Laboratory 09/23/2011 [facility] Vitamin D, 25 23.3 Low 30.0-100.0 60 test finding 28 [facility] Oh ng/[place] [address] [phone] Anti Thyroid 09/23/2011 [facility] Thyroid 216 IU/mL High 0-34 61 Abs 28 [facility] [place] [address] (Tpo) Ab [phone] Antithyroglobulin Ab <20 IU/mL 0-40 62 Lipid Profile 09/23/2011 [facility] Cholesterol 209 mg/dL High 120- 200 HDL 37 mg/dL 30-85 Triglycerides 103 mg/dL 30-200 HDL Risk Factor 5.6 CALC High 0.0-4.0 LDL (Calculated) 151 CALC High 0-129 VLDL (Calculated) 21 mg/dL 0-50 Laboratory test finding 09/23/2011 [facility] TSH 2.45 mIU/L 0.50- 6.00 Free T3 3.17 pg/mL 2.00-4.90 Comprehensive Metabolic Prof 09/23/2011 [facility] Albumin 4.6 g/dL 3.8-5.5 Alk. Phos. 51 U/L 30-110 Alt (SGPT) 18 U/L 7-35 Ast (Sgot) 21 U/L 5-34 BUN 13 mg/dL 6-26 Calcium 8.8 mg/dL 8.6-10.2 Chloride 95 mEq/L 94-112 Creatinine 1.0 mg/dL 0.6-1.4 Carbon Dioxide 24 mEq/L 21-32 Glucose 88 mg/dL 70-105 Sodium 135 mEq/L 134-149 Total Bilirubin 0.5 mg/dL 0.2-1.3 Total Protein 7.2 g/dL 6.3-8.1 Potassium 4.0 mEq/L 3.6-5.5 Globulin 2.5 g/dL 2.0-4.8 A/G Ratio 1.8 Calc 0.6-2.2 BUN/Creat Ratio 13.2 Calc 8.0-36.0 Ua - Non Micro (a) 09/23/2011 [facility] Appearance CLEAR (607)- - Color YELLOW Glucose NEG Bilirubin NEG Ketones 15 MG/DL # SP Grav 1.020 Blood NEG PH 5.5 Protein NEG Urobil 0.2 Nitrite NEG Leukocytes (a/[facility] [place] NEG Laboratory test finding 09/23/2011 [facility] TSH 2.45 mIU/L 0.50- 6.00 Free T3 3.17 pg/mL 2.00-4.90 Comprehensive Metabolic Prof 09/23/2011 [facility] Albumin 4.6 g/dL 3.8-5.5 Alk. Phos. 51 U/L 30-110 Alt (SGPT) 18 U/L 7-35 Ast (Sgot) 21 U/L 5-34 BUN 13 mg/dL 6-26 Calcium 8.8 mg/dL 8.6-10.2 Chloride 95 mEq/L 94-112 Creatinine 1.0 mg/dL 0.6-1.4 Carbon Dioxide 24 mEq/L 21-32 Glucose 88 mg/dL 70-105 Sodium 135 mEq/L 134-149 Total Bilirubin 0.5 mg/dL 0.2-1.3 Total Protein 7.2 g/dL 6.3-8.1 Potassium 4.0 mEq/L 3.6-5.5 Globulin 2.5 g/dL 2.0-4.8 A/G Ratio 1.8 Calc 0.6-2.2 BUN/Creat Ratio 13.2 Calc 8.0-36.0 CBC Electronic (a) 08/04/2010 [facility] Medicine WBC 6.2 3.6-9.6 (607)- - RBC 4.45 3.90-5.70 Hemoglobin (Fma/CMC/CTX) 12.4 g/dL 12.1 - 17.2 Hematocrit (Fma/CMC/CTX) 37.2 % 36.1 - 50.3 Platelets 264 10^3/ul 150-400 Lymph% 40.0 20.5-51.1 Mixed% 5.6 Neutrophils % 54.4 Mean Corpuscular Vol 83.6 82.2-97.4 Mean Corpuscular Hemoglobin 27.9 27.6-33.3 Mean Corpuscular Hemo Concen 33.3 32.0-36.0 RDW 13.9 High 11.6-13.7 Mean Platelet Volume 9.6 6.5-11.0 Iron/Tibc,%Sat Group 08/04/2010 [facility] Iron 80 g/dL 30-158 [address] [place] [address] [phone] Total Iron Binding Cap. 388 g/dL 250-450 % Iron Saturation 20.6 % 13.0-45.0 Basic Metabolic Profile 08/04/2010 [facility] BUN 15 mg/dL 6-26 Calcium 8.6 mg/dL 8.6-10.2 Chloride 95 mEq/L 94-112 Creatinine 0.9 mg/dL 0.6-1.4 Carbon Dioxide 21 mEq/L 21-32 Glucose 89 mg/dL 70-105 Sodium 143 mEq/L 134-149 Potassium 4.7 mEq/L 3.6-5.5 BUN/Creat Ratio 15.7 Calc 8.0-36.0 Comprehensive Metabolic Prof 09/11/2009 [facility] Albumin 4.2 g/dL 3.8-5.5 Alk. Phos. 48 U/L 30-110 Alt (SGPT) 20 U/L 7-35 Ast (Sgot) 21 U/L 5-34 BUN 15 mg/dL 6-26 Calcium 9.3 mg/dL 8.6-10.2 Chloride 101 mEq/L 94-112 Creatinine 1.0 mg/dL 0.6-1.4 Carbon Dioxide 25 mEq/L 21-32 Glucose 100 mg/dL 70-105 Sodium 139 mEq/L 134-149 Total Bilirubin 0.3 mg/dL 0.2-1.3 Total Protein 7.1 g/dL 6.3-8.1 Potassium 4.6 mEq/L 3.6-5.5 Globulin 2.9 g/dL 2.0-4.8 A/G Ratio 1.4 Calc 0.6-2.2 BUN/Creat Ratio 14.7 Calc 8.0-36.0 Laboratory test finding 09/11/2009 [facility] Free T4 1.29 ng/dL 0.75-1.54 TSH 0.83 mIU/L 0.50-6.00 CBC ([facility]) 09/11/2009 [facility] WBC 5.7 3.6-9.6 (607)- - RBC 4.88 3.90-5.70 Hemoglobin (Fma/CMC/CTX) 13.0 g/dL 12.1 - 17.2 Hematocrit (a/CMC/CTX) 39.1 % 36.1 - 50.3 Mean Corpuscular Vol 80.1 Low 82.2-97.4 Mean Corpuscular Hemaglobin 26.6 Low 27.6-33.3 Mean Corpuscular Hemo Concen 33.2 33.0-36.0 Platelets 261 10^3/ul 150-400 Lymph% 39.0 20.5-51.1 Mixed% 6.3 Neutrophils % 54.7 RDW 15.1 High 11.6-13.7 Mean Platelet Volume 9.6 7.4-10.4 Ua - Non Micro ([facility]) 09/08/2009 [facility] Appearance CLEAR (607)- - Color YELLOW Glucose NEG Bilirubin NEG Ketones TRACE # SP Grav 1.020 Blood NEG PH 5.5 Protein NEG Urobil 0.2 E.U./dL Nitrite NEG Leukocytes ([facility]/CMC/[facility]) NEG 1 Desirable: <150 Borderline High: 150-199 High: 200-499 Very High: >500 2 Desirable: <200 Borderline High: 200-239 High: >239 3 Low: <40 Desirable: 40-60 High: >60 4 Desirable: <100 Near Optimal: 100-129 Borderline High: 130-159 High: 160-189 Very High: >189 5 Because ethnic data is not always readily [...] 15-29 5 Kidney failure <15 (or dialysis) 6 Test Performed by: [facility] [employer] [facility] [employer] [address] [place] [address] 7 ADDITIONAL INFORMATION Testing performed by [facility]. This test was developed and its performance characteristics determined by [facility] in a manner consistent with CLIA requirements. This test has not been cleared or approved by the [place].S. Food and Drug Administration. 8 ADDITIONAL INFORMATION Testing performed by Liquid Chromatography-Tandem Mass Spectrometry (LC-MS/MS). This test was developed and its performance characteristics determined by [facility] in a manner consistent with CLIA requirements. This test has not been cleared or approved by the U.S. Food and Drug Administration. Test Performed by: [facility] [employer] [facility] [employer] [address] [place] [address] 9 RESULTS VERIFIED BY REPEAT ANALYSIS 10 99th percentile=0.04 ng/mL Troponin results at [facility] and [facility] are not interchangeable. 11 <5.0 Negative 5.0 - 25.0 Indeterminate (Repeat testing recommended after 72 hours) >25.0 Positive Perimenopausal women can display HCG levels of up to 20 mIU/mL 12 Because ethnic data is not always readily [...] 15-29 5 Kidney failure <15 (or dialysis) 13 Please note: The following may produce a false positive D Dimer test: - Rheumatoid factor greater than 60 IU/ml - Plasma hemoglobin greater than 0.05 gm/dl - Bilirubin greater than 50 mg/dl - Lipids greater than 1000 mg/dl - FDP greater than 20 ug/ml 14 >100 to <200 pg/mL: likely compensated congestive heart failure (CHF) 200 to 400 pg/mL: likely moderate CHF >400 pg/mL: likely moderate to severe CHF 15 RESULTS VERIFIED BY REPEAT ANALYSIS 16 consistent w/ previous results 17 ADDITIONAL INFORMATION This test was developed and its performance characteristics determined by [facility] in a manner consistent with CLIA requirements. This test has not been cleared or approved by the U.S. Food and Drug Administration. Test Performed by: [facility] [address] [address] 18 RESULTS VERIFIED BY REPEAT ANALYSIS 19 1POUR OFF [id number] 20 Suggestive of nonceliac gluten sensitivity. The patient may benefit from a gluten-free diet. 21 Thyroglobulin Antibody measured by [facility] [employer] 22 RESULTS VERIFIED BY REPEAT ANALYSIS 23 <5.0 Negative 5.0 - 25.0 Indeterminate (Repeat testing recommended after 72 hours) >25.0 Positive Perimenopausal women can display HCG levels of up to 20 mIU/mL 24 4 sst 25 Index Value: Specimen reactivity relative to the negative cutoff. 26 [facility] is in the process of converting HIV preliminary testing with reflex to supplemental testing from 3rd generation to 4th generation HIV. This conversion is pending availability at regional laboratories. Additional information will be forthcoming, however [facility] goal is to ensure a smooth transition to the HIV 4th, therefore we are targeting July 06, 2015 as the effective date. Should you choose to convert your HIV preliminary testing from 3rd generation to 4th generation in advance of this effective date, you may experience turn-around time delays. 27 Negative: < 0.8 Indeterminate: 0.8 - 0.9 Positive: > 0.9 The CDC recommends that a positive HCV antibody result be followed up with a HCV Nucleic Acid Amplification test (246268). 28 Negative <36.0 Equivocal 36.0 - 43.9 Positive >43.9 29 Hepatitis A, Hepatitis C and HIV antibodies may cross-react with this assay. Negative < 9.0 Equivocal 9.0 - 10.9 Positive >10.9 30 Negative <18.0 Equivocal 18.0 - 21.9 Positive >21.9 31 Negative <18.0 Equivocal 18.0 - 21.9 Positive >21.9 32 EBV Interpretation Chart Interpretation EBV-IgM EA(D)-IgG VCA-IgG EBNA-IgG EBV Seronegative - - - - Early Phase + - - - Acute Primary + +or- + - Infection Convalescence/Past - +or- + + Infection Reactivated +or- + + + Infection + Antibody Present - Antibody Absent 33 1 SST 34 Negative <36.0 Equivocal 36.0 - 43.9 Positive >43.9 35 Hepatitis A, Hepatitis C and HIV antibodies may cross-react with this assay. Negative < 9.0 Equivocal 9.0 - 10.9 Positive >10.9 36 Negative <18.0 Equivocal 18.0 - 21.9 Positive >21.9 37 Negative <18.0 Equivocal 18.0 - 21.9 Positive >21.9 38 EBV Interpretation Chart Interpretation EBV-IgM EA(D)-IgG VCA-IgG EBNA-IgG EBV Seronegative - - - - Early Phase + - - - Acute Primary + +or- + - Infection Convalescence/Past - +or- + + Infection Reactivated +or- + + + Infection + Antibody Present - Antibody Absent 39 Normal Range 180 to 914 Indeterminate Range 145 to 180 Deficient Range <145 40 Positive in 50% of persons with pernicious anemia. Test Performed by: [place] [address] [employer]aker Unit Assembler: Mg Moreland II, M.D., Ph.D. 41 Serologic response to B. burgdorferi infection is not detected, but cannot rule out early infection during which low or undetectable antibody levels to B. burgdorferi may be present. If clinically indicated, a new serum specimen should be submitted in 7-14 days. Test Performed by: [place] [address] [employer]aker Unit Assembler: Mg Moreland II, M.D., Ph.D. 42 Because ethnic data is not always readily [...] 15-29 5 Kidney failure <15 (or dialysis) 43 <5.0 Negative 5.0 - 25.0 Indeterminate >25.0 Positive 44 Normally menstruating females - Follicular phase 3 - 9 - Mid-cycle peak 4 - 23 - Luteal phase 1 - 6 Postmenopausal females 16 - 114 45 Normally menstruating females - Follicular Phase 1 - 18 - Mid-Cycle Peak 24 - 105 - Luteal Phase 0.6 - 20 Postmenopausal females 15 - 62 46 Test Performed by: [place] [address] Breaker Unit Assembler: Shant Valadez III, M.D. 47 Test Performed by: [place] [address] Breaker Unit Assembler: Shant Valadez III, M.D. 48 RESULT AVIS'D 49 -- REFERENCE VALUE -- 25-HYDROXY D TOTAL (D2+D3) Optimum levels in the healthy population are 20-50, patients with bone disease may benefit from higher levels within this range. Test Performed by: [place] [address] Breaker Unit Assembler: Shant Valadez III, M.D. 50 The thyroglobulin testing method is an immunoenzymatic assay manufactured by [employer] and performed on the [employer] DXI 800. The thyroglobulin antibody testing method [...] give falsely lower results. Test Performed by: [facility] [place] [address] Breaker Unit Assembler: Shant Valadez III, M.D. 51 Quantitation of thyroglobulin may be unreliable due to the presence of anti-thyroglobulin antibodies. -- REFERENCE VALUE -- <=33 Athyrotic individuals normally have hTg values <=2. 52 Reference Range and Interpretation: TnI (ng/mL) Interpretation Less Than 0.06 ng/mL Not supportive of diagnosis of GA 0.06 - 0.50 ng/mL Indeterminate: suggest serial studies if clinically indicated. Greater than 0.5 ng/mL Consistent with diagnosis of GA 53 Because ethnic data is not always readily [...] 15-29 5 Kidney failure <15 (or dialysis) 54 Refractometer result [] confirmed by AUTOINS at 2126 on 10/06/12. 55 RUN DATE: 10/08/12 [facility] LAB LIVE PAGE 1 RUN TIME: [address] [place] [address] Specimen Inquiry Name: OLIVERIO PRATHER : [address]: Mg Olmos MD Acct: [id number] Unit: [id number] AGE: 26 Location: ED Re10/06/12 SEX: F Status: DEP ER SPEC: [id number] JORGE L: 10/06/12-[address] [facility] [address]: Erich Ortiz MD REQ: [id number] RECD: 10/06/12 STATUS: FLORENCIO MATUTE DR: Marci Graves MD _ SOURCE: URINE SPDESC: ORDERED: Urine Culture Procedure Result Verified Site Urine Culture Final 10/08/12- 0948 ML Organism 1 NORMAL SHAKIR [place] Count >100,000 (Many) CFU/ML END OF REPORT * ML=Testing performed at Main Lab DEPARTMENT OF PATHOLOGY, [address] [place] [address] Charles Solano M.D. Director [facility] Permit #[id number] 56 Because ethnic data is not always readily [...] 15-29 5 Kidney failure <15 (or dialysis) 57 1 sst 58 . Less than 5: Negative for 6 - 25: Indeterminate for , and Suggest recollection in 72 hrs Greater than 25: Positive for . NORMAL : Gestational Age HCG range (mIU/mL) 2-3 Weeks 100 - 1,000 3-4 Weeks 500 - 6,000 1-2 Months 5,000 - 200,000 2-3 Months 10,000 - 100,000 2nd Trimester 3,000 - 50,000 3rd Trimester 1,000 - 50,000 . Please Note: This test methodology is limited to the early detection of . False results can occur due to, but not limited to, the presence of heterophilic antibodies, non-specific protein binding, altered forms of HCG, HCG-like substances, trophoblastic or non-trophoblastic neoplasms. . 59 FASTING; 3SST 60 Vitamin D deficiency has been defined by the [place] of Medicine and an Endocrine Society practice guideline as a level of serum 25-OH vitamin D less than 20 ng/mL (1,2). The Endocrine Society went on to further define vitamin D insufficiency as a level between 21 and 29 ng/mL (2). 1. IOM ([place] of Medicine). 2010. Dietary reference intakes for calcium and D. [place]: The National Academies Press. 2. Alex MF, Rose [place], Delroy MONTOYA, et al. Evaluation, treatment, and prevention of vitamin D deficiency: an Endocrine Society clinical practice guideline. JCEM. 2010; 96(7):1911-30. 61 Please note reference interval change 62 Siemens (DPC) ICMA Methodology Procedures Date Code Description Status 03/20/2018 03088 CPHL SHQ Completed 08/15/2016 60555 CPHL SHQ Completed 05/28/2015 56262 Pulse Oximetry Completed 03/12/2015 22169 CPHL SHQ Completed 03/26/2014 45457 Pulse Oximetry Completed 02/04/2013 86499 CPHL SHQ Completed 09/18/2012 65025 Pulse Oximetry Completed 02/25/2011 50081 Electrocardiogram Complete Completed 01/12/2010 89049 Electrocardiogram Complete Completed 09/08/2009 25943 Electrocardiogram Complete Completed Encounters Type Date Location Provider Dx Diagnosis Office Visit 03/20/2018 Main Office Marci Graves, Z00.00 Encntr for general 2:00p M.D. adult medical exam w/o abnormal findings G47.33 Obstructive sleep apnea (adult) (pediatric) E66.3 Overweight E03.9 Hypothyroidism, unspecified Office Visit 02/17/2018 12:40p Main Office Marci Bradford J02.9 Acute pharyngitis, Brea Graves unspecified E66.3 Overweight Office Visit 07/05/2017 10:00a [facility] Zuri Rodríguez J06.9 Acute upper Juanito, [employer] respiratory infection, unspecified Office Visit 02/15/2017 7:00p Main Office Marci Bradford M54.89 Other dorsalgia Brea Graves E66.3 Overweight R68.89 Other general symptoms and signs Office Visit 10/19/2016 3:40p Main Office Marci Bradford A69.20 Lyme diseaseEly M.D. unspecified M54.89 Other dorsalgia E66.3 Overweight Office Visit 08/15/2016 10:00a Main Office Marci Graves, Z00.00 Encntr for Brea general adult medical exam w/o abnormal findings E06.3 Autoimmune thyroiditis G47.33 Obstructive sleep apnea (adult) (pediatric) E66.3 Overweight F41.9 Anxiety disorder, unspecified Office Visit 08/03/2016 10:40a Main Office Marci Bradford E06.3 Autoimmune Brea Graves thyroiditis G47.33 Obstructive sleep apnea (adult) (pediatric) A69.20 Lyme disease, unspecified T88.7xxA Unsp adverse effect of drug or medicament, init encntr E27.8 Other specified disorders of adrenal gland M54.5 Low back pain Office Visit 07/14/2016 8:15a Main Office Darlene E06.3 Autoimmune Yoel, [employer] thyroiditis E66.3 Overweight F34.1 Dysthymic disorder A69.20 Lyme disease, unspecified Office Visit 02/25/2016 9:45a [facility] Office Gloria Hurley M54.5 Low back pain [employer] Office Visit 01/06/2016 9:15a Main Office Gloria Hurley J06.9 Acute upper [employer] respiratory infection, unspecified Office Visit 11/25/2015 2:45p [facility] Office Darlene R60.0 Localized edema Yoel, [employer] E66.3 Overweight F34.1 Dysthymic disorder E06.3 Autoimmune thyroiditis E78.1 Pure hyperglyceridemia Office Visit 09/04/2015 1:45p [facility] Office Darlene R60.0 Localized edema Yoel, [facility] Office Visit 08/07/2015 4:30p [facility] Office Darlene E66.3 Overweight Yoel [facility] F34.1 Dysthymic disorder Office Visit 06/23/2015 3:00p Main Office PATTI FreitasP E66.3 Overweight O20.0 Threatened R53.83 Other fatigue Office Visit 05/28/2015 11:00a Main Office Darlene Diallo [employer] R05 Cough J20.9 Acute bronchitis, unspecified R53.83 Other fatigue Office Visit 03/31/2015 11:20a [facility] Marci Bradford R53.83 Other fatigue Brea Graves E66.3 Overweight Office Visit 03/12/2015 10:40a [facility] Marci Bradford Z00.01 Encounter for Brea Graves general adult medical exam w abnormal findings J02.0 Streptococcal pharyngitis E66.3 Overweight E06.3 Autoimmune thyroiditis E78.1 Pure hyperglyceridemia Office Visit 12/29/2014 3:00p [facility] Office Darlene Diallo [facility] 724.2 Lumbago 724.1 Pain Thoracic Spine 723.1 Cervicalgia 300.00 Anxiety State Unspec 278.02 Overweight 784.0 Headache Office Visit 03/26/2014 9:00a Main Office Hiren Forrester 465.9 MAYKEL Manning M.D. Respiratory Infections Acute Unspec Sites Office Visit 10/30/2013 9:15a [facility] Office Brenda Marcum, 782.1 Rash & Other Afnp-C Nonspec Skin Eruption Office Visit 09/16/2013 7:30p Main Office Marci Bradford 785.1 Palpitations Brea Graves 244.9 Hypothyroidism Other Unspec 780.57 Unspecified Sleep Apnea Office Visit 07/12/2013 10:40a [facility] Marci Bradford 311 Depressive Brea Graves Disorder Not Elsewhere Spec 300.00 Anxiety State Unspec 780.57 Unspecified Sleep Apnea 278.02 Overweight 244.9 Hypothyroidism Other Unspec Office Visit 06/07/2013 3:00p [facility] Marci Bradford 311 Depressive Brea Graves Disorder Not Elsewhere Spec Office Visit 05/14/2013 10:40a Main Office Marci Bradford 300.00 Anxiety State Brea Graves Unspec Office Visit 02/04/2013 7:10p Main Office Marci Bradford V70.0 Examination Brea Graves General Medical Routine AT Health Care Facility 240.9 Goiter Unspec 278.02 Overweight Office Visit 12/27/2012 Main Office Darlene 782.9 Skin & 8:00a Yoel, [employer] Integumentary Tissue Other Symptoms Office Visit 12/07/2012 Main Office Gloria Hurley, 455.3 Hemorrhoids 2:45p [employer] External W/O Complication Office Visit 09/18/2012 Main Office Brenda Arguelloigne, 780.57 Unspecified Sleep 11:45a Afnp-C Apnea Office Visit 01/13/2012 [facility] Marci Bradford V22.2 State 3:20p Office Brea Graves Incidental Normal 278.02 Overweight Office Visit 09/23/2011 10:00a [facility] Marci Bradford V70.0 Examination Brea Graves General Medical Routine AT Health Care Facility 281.9 Anemia Deficiency Unspec 706.2 Sebaceous Cyst V18.19 Family HX Other Endocrine And Metabolic Diseases 278.02 Overweight 268.9 Vitamin D Deficiency Unspec 782.0 Skin Sensation Disturbance Office Visit 02/25/2011 11:20a [facility] Marci Bradford 785.1 Palpitations Brea Graves Office Visit 08/25/2010 2:15p [facility] Office Darlene murrell6.2 Sebaceous Cyst Brea Callahan Office Visit 08/04/2010 1:20p Main Office Marci Bradford 706.2 Sebaceous Cyst Brea Graves 281.9 Anemia Deficiency Unspec 785.1 Palpitations V18.19 Family HX Other Endocrine And Metabolic Diseases Office Visit 01/12/2010 3:00p Main Office Marci Bradford 785.1 Palpitations Brea Graves Office Visit 09/08/2009 3:00p Main Office Marci Bradford V70.0 Examination General Brea Graves Medical Routine AT Health Care Facility 785.1 Palpitations Office Visit 07/29/2009 1:20p Main Office Marci Graves 466.0 Bronchitis Acute Brea Plan of Treatment Future Appointment(s):10/12/2018 9:40 am - Marci Graves M.D. at [facility] Hflsmz3307/06/2018 - Marci Graves M.D.J02.9 Acute pharyngitis, unspecifiedComments:quickstrep neg.R07.0 Pain in throatComments:efer to ENt for evaluation. effects of GERD? OK to take zantac every day for 2 weeks. If you take ibuprofen, put food in your stomach.K21.9 Gastro-esophageal reflux disease without esophagitisComments:refer to GI for GERD/EGDE66.3 OverweightComments: You have some good ideas about losing weight. Support your ideas for this.Follow up:3 months.AllComments:Medication Management Patient Understands medications she's taking? Yes No Are there Barriers to Adherence? Yes No Has the patient been asked about herbal supplements and therapies, and OTC meds? Yes No
[2018-08-02 20:54] VITALS: BP 0/0
== END | disposition home or self-care (01) ==
LOC: ED 18:18
DX: R42 Dizziness and giddiness (principal); Z53.21 Procedure and treatment not carried out due to patient leaving prior to being seen by health care provider
CPT/HCPCS: 99281

== ENCOUNTER 2018-09-25 17:28 | Emergency (ER) | payer OTHER ==
--- OUTSIDE RECORDS SUMMARY | 2018-09-25 17:43 | XMS REPORT | Continuity of Care Document ---
:1985 External Reference #:[id number] Author Name Hiren Keating M.D. Address [address] [place] [address] Care Team Providers Name Role Phone Marci Graves M.D. Care Team Information Applied Anthropologist Unavailable Marci Graves M.D. Primary Care Physician Unavailable Payers Date Identification Numbers Payment Provider Subscriber Policy Number: [id number] [employer] Anastasiia Prather Group Number: [id number] Group Name: [id number] [id number] [place] [address] PayID: [id number] Problems Active Problems Provider Date Thyroiditis Hiren Keating M.D. Onset: 02/12/2013 Transient insomnia Hiren Keating M.D. 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 Tobacco Use Start: Unknown Never Smoked Cigarettes [...] Mouth Twice A Tablets ER 24HR Day Claritin daily Unknown 10mg Capsules History Medications Vitamins Unknown - 07/24/2018 Vital Signs Date Vital Result Comment 09/24/2018 1:41pm Weight 353.00 lb Weight 160.121 kg Height 70.50 inches 5'10.50" Height in cm's 179.1 cm BMI (Body Mass Index) 49.9 kg/m2 07/24/2018 8:33am Weight 353.00 lb Weight 160.121 [...] Result H/L Range Note Laboratory test 02/15/2013 [facility] PTH Related 0.4 pmol/L <2.0 1 finding c/o Department [place] [address] [phone] Pthi 02/12/2013 [facility] PTH Intact 1.9 pmol/L 1.3-9.0 c/o [place] [address] [phone] Calcium (PTH Intact) 9.4 mg/dL 8.1-9.9 Laboratory test 02/12/2013 [facility] Free T3 3.25 pg/ mL 2.39-6.79 finding c/o Department [place] [address] [phone] Free T4 0.56 ng/mL Low 0.61-1.24 TSH (Thyroid Stimulating Horm) 12.25 miu/mL High 0.34-5.60 T3 Uptake 27 % 20 - 37 2 Calcium 9.4 mg/dL 8.1-9.9 Iron & Iron Binding 02/07/2013 [facility] Iron 44 g/ dL 28-170 Capacity c/o Department of Laboratories [place], [place] [id number] [phone] Unsaturated Iron Binding 341 g/dL Total Iron Binding Capacity 385 g/dL 250-450 % Iron Saturation 11 % Low 15-55 Laboratory test 02/07/2013 [facility] Thyroid > 996.0 High Less finding c/o Department of Laboratories Peroxidase IU/mL Than 9.0 [place] [address] Antibodies [phone] Vitamin D, 25 02/07/2013 [facility] 25-Hydroxy <4.0 ng /mL Hydroxy c/o Department of Laboratories Vitamin D2 [place] [address] [phone] 25-Hydroxy Vitamin D3 35 ng/mL 25-Hydroxy Vitamin D Total 35 ng/mL 3 Thyroglobulin AB 02/07/2013 [facility] Thyroglobulin 548 Abnormal <22 4 Screen c/o Department of Laboratories Antibody IU/[place] [address] [phone] Thyroglobulin Tumor Marker 44 ng/mL Abnormal 5 Laboratory test 10/02/2012 [facility] TSH (Thyroid 0.50 0.34 -5.60 [place] [address] Stimulating miu/mL [phone] Horm) Basic Metabolic 10/02/2012 [facility] Sodium 138 mmol/L 133- 145 [place] [address] [phone] Potassium 4.3 mmol/L 3.5-5.0 Chloride 103 mmol/L 101-111 Co2 Carbon Dioxide 27.0 mmol/L 22-32 Anion Gap 8.0 mmol/L 2-11 Glucose 92 mg/dL 70-100 Blood Urea Nitrogen 12 mg/dL 6-24 Creatinine 0.70 mg/dL 0.50-1.40 BUN/Creatinine Ratio 17.1 8-20 Egfr Non- 99.6 >60 Egfr 128.1 >60 6 CBC With 10/02/2012 [facility] White Blood 5.5 10^3/uL 4.8- 10.8 [place] [address] Count [phone] Red Blood Count 5.17 10^6/uL 4.0-5.4 Hemoglobin [...] RBC Morphology Normal Normal Laboratory test 10/02/2012 [facility] Calcium 9.7 mg/dL 8.1- 9.9 [place] [address] [phone] 1 Test Performed by: [address] [address] Primary School Teacher Librarian: Shant Valadez III, M.D. 2 Test Performed by: [address] [address] Primary School Teacher Librarian: Shant Valadez III, M.D. 3 -- REFERENCE VALUE -- 25-HYDROXY D TOTAL (D2+D3) Optimum levels in the healthy population are 20-50, patients with bone disease may benefit from higher levels within this range. Test Performed by: [address] [address] Primary School Teacher Librarian: Shant Valadez III, M.D. 4 The thyroglobulin testing method is an immunoenzymatic assay manufactured by [employer] and performed on the [employer] DXI 800. The thyroglobulin antibody testing method [...] give falsely lower results. Test Performed by: [place] [address] Primary School Teacher Librarian: Shant Valadez III, M.D. 5 Quantitation of [...] (or dialysis) Procedures Date Code Description Status 09/24/2018 88173 Tympanometry Completed 09/24/2018 81632 Comprehensive Audiogram Completed 07/24/2018 92442 Fiberoptic Laryngoscopy Completed 09/19/2012 48137 Laryngoscopy Direct, Diagnostic-Except [place] Completed Encounters Type Date Location Provider Dx Diagnosis Office Visit 09/24/2018 [place],After Hiren Glass R07.0 Pain in throat 1:45p 04/10/07 Brea Keating H81.399 Other peripheral vertigo, unspecified ear Office Visit 07/24/2018 8:30a Dennis,After 04/10/07 Hiren Glass R07.0 Pain in Brea Keating throat H81.399 Other peripheral vertigo, unspecified ear H69.93 Unspecified Eustachian tube disorder, bilateral Office 02/12/2013 [place],After Hiren Glass 245.9 Thyroiditis/Unspecified Visit 3:45p 04/10/07 Brea Keating Office 10/02/2012 [place],After Hiren Glass 307.41 Sleep Disorder Transient Visit 9:15a 04/10/07 Rishabh Initiating Or Maintaining Brea Sleep Office 09/19/2012 Dennis,After Beth 307.41 Sleep Disorder Transient Visit 3:30p 04/10/07 Maria Ines DAY Initiating Or Maintaining Sleep Plan of Treatment 09/24/2018 - Hiren Keating M.D.R07.0 Pain in throatNew Labs:Culture Throat, Ordered: 09/24/18N Gonorrhoea Misc Source Rna, Ordered: 09/24/18GC/ Chlamydia Amplified Rna, Ordered: 09/24/18Comments:The patient returned today for an audiogram because of the vertigo which is mostly better. Her audiogram is normal today as well[place] [address] [place] and in the right ear she dropped to 30 dB. This is not a concern. She still has the sore throat that seems to be doing better with Claritin. Allergy could be causing this. GERD can be contributing but I did not see definitive evidence of this on her nasolaryngoscopy. She uses CPAP and reports that her throat gets dry. She should use heated humidity. I took a swab for routine C&S. She denies risk factor for Gonorrhea and Chlamydia but agreed to have that jqlolfcL15.399 Other peripheral vertigo, unspecified ear
--- OUTSIDE RECORDS SUMMARY | 2018-09-25 17:43 | XMS REPORT | Continuity of Care Document ---
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 Laboratory test 02/07/2013 Reagn Johnson([facility] [place]) TSH 13.24 High 0.50-6.00 56 finding mIU/L Vitamin D, 25 02/07/2013 [facility] 25-Hydroxy <4.0 Hydroxy Vitamin D2 ng/mL 25-Hydroxy Vitamin D3 35 ng/mL 25-Hydroxy Vitamin D Total 35 ng/mL 57 Iron & Iron Binding Capacity 02/07/2013 [facility] Iron 44 g/dL 28-170 Unsaturated Iron Binding 341 g/dL Total Iron Binding Capacity 385 g/dL 250-450 % Iron Saturation 11 % Low 15-55 Thyroglobulin AB 02/07/2013 [facility] Thyroglobulin Antibody 548 IU/mL Abnormal <22 58 Screen Thyroglobulin Tumor Marker 44 ng/mL Abnormal 59 Thyroid 02/07/2013 [facility] Thyroid > 996.0 High Less Than Autoantibodies Peroxidase IU/mL 9.0 Profile Antibodies Ua - Non Micro ([facility]) 02/04/2013 [facility] Appearance CLEAR (607)- - Color YELLOW Glucose, Urine ([facility]/CMC/CTX) NEG Bilirubin NEG Ketones TRACE SP Grav 1.025 Blood NEG PH 6.0 Protein NEG Urobil 0.2 Nitrite NEG Leukocytes ([facility]) NEG CBC Electronic ([facility]) 01/16/2013 [facility] WBC 5.9 3.6-9.6 (607)- - RBC 4.83 3.90-5.70 Hemoglobin (a/CMC/CTX) 13.8 g/dL 12.1 - 17.2 Hematocrit ([facility]/CTX) 41.5 % 36.1 - 50.3 Platelets 232 10^3/ul 150-400 Lymph% 44.1 20.5-51.1 Mixed% 5.2 Neutrophils % 50.7 Mean Corpuscular Vol 86 82.2-97.4 Mean Corpuscular Hemoglobin 28.5 27.6-33.3 Mean Corpuscular Hemo Concen 33.2 32.0-36.0 RDW 13.7 11.6-13.7 Mean Platelet Volume 6.7 6.5-11.0 Comprehensive Metabolic 01/16/2013 Regan Johnson(a) Albumin 4.7 g/dL 3.8-5.5 Prof Alk. Phos. 107 U/L 30-110 Alt (SGPT) [...] Ratio 11.4 Calc 8.0-36.0 Lipid Profile 01/16/2013 Regan Johnson(a) Cholesterol 301 mg/dL High 120-200 HDL 46 mg/dL 30-85 Triglycerides 236 mg/dL High 30-200 HDL Risk Factor 6.5 CALC High 0.0-4.4 LDL (Calculated) 207 CALC High 0-129 VLDL (Calculated) 47 mg/dL 0-50 Laboratory test finding 10/06/2012 [facility] Troponin I 0 ng/mL 0-0.06 60 TSH (Thyroid Stimulating Horm) 1.61 miu/mL 0.34-5.60 B Type Natriuretic Peptide 27.0 pg/mL 0-100 Comp Metabolic Panel 10/06/2012 [facility] Sodium 136 mmol/L 133-145 Potassium 3.6 mmol/L [...] Egfr Non- 99.6 >60 Egfr 128.1 >60 61 Urinalysis 10/06/2012 [facility] Urine Color Yellow Urine Appearance Clear Urine Specific [place] 1.051 High 1.010-1.030 62 Urine Esterase 1+ Abnormal Negative Urine Nitrate Negative Negative Urine Urobilinogen Negative E.U./dL Negative Urine Protein Negative mg/dL Negative Urine pH 8.0 5-9 Urine Blood 3+ Abnormal Negative Urine Ketones Negative mg/dL Negative Urine Bilirubin Negative Negative Urine Glucose Negative mg/dL Negative Urine Microscopic 10/06/2012 [facility] Urine WBC None Seen None Seen Urine RBC 3+ (>10 /hpf) None Seen CBC Auto Diff 10/06/2012 [facility] White Blood Count 6.4 10^3/uL 4.8-10.8 Red [...] Cells % 0.1 Urine Culture And 10/06/2012 [facility] Urine Culture (SEE NOTE) 63 Sensitivities CBC With Manual Diff 10/02/2012 [facility] White Blood Count 5.5 10^3/uL 4.8- 10.8 [...] RBC Morphology Normal Normal Laboratory test 10/02/2012 [facility] TSH (Thyroid 0.50 miu/mL 0.34-5.60 finding Stimulating Horm) Basic Metabolic Panel 10/02/2012 [facility] Sodium 138 mmol/L 133-145 Potassium 4.3 mmol/L 3.5-5.0 Chloride 103 mmol/L 101-111 Co2 Carbon Dioxide 27.0 mmol/L 22-32 Anion Gap 8.0 mmol/L 2-11 Glucose 92 mg/dL 70-100 Blood Urea Nitrogen 12 mg/dL 6-24 Creatinine 0.70 mg/dL 0.50-1.40 BUN/Creatinine Ratio 17.1 8-20 Calcium 9.7 mg/dL 8.1-9.9 Egfr Non- 99.6 >60 Egfr 128.1 >60 64 Urine ([facility]ma) 01/13/2012 [facility] SP Grav 1.020 (607)- - Urine, (Fma/CMC/CTX) pos Laboratory 01/13/2012 [facility] [place], [address] Abnormal 65, 66 test finding [address] Quantitative mIU/[place] [address] [phone] Lipid Profile 09/23/2011 Spears Shakir(a) Cholesterol 209 mg/dL High 120 -20 0 HDL 37 mg/dL 30-85 Triglycerides 103 mg/dL 30-200 HDL Risk Factor 5.6 CALC High 0.0-4.0 LDL (Calculated) 151 CALC High 0-129 VLDL (Calculated) 21 mg/dL 0-50 CBC Electronic ([facility]) 09/23/2011 [facility] WBC 6.7 3.6-9.6 (607)- [...] Group 09/23/2011 [facility] Iron 70 g/dL 30-158 67 [address] [place] [address] [phone] Total Iron Binding Cap. 377 g/dL 250-450 % Iron Saturation 18.6 % 13.0-45.0 Laboratory 09/23/2011 [facility] Vitamin D, 25 23.3 Low 30.0-100.0 68 test finding 28 [facility] Oh ng/[place] [address] [phone] Anti Thyroid 09/23/2011 [facility] Thyroid 216 IU/mL High 0-34 69 Abs 28 [facility] [place] [place] [address] (Tpo) Ab [phone] Antithyroglobulin Ab <20 IU/mL 0-40 70 Lipid Profile 09/23/2011 [facility](a) Cholesterol 209 mg/dL High 120-200 HDL 37 mg/dL 30-85 Triglycerides 103 mg/dL 30-200 HDL Risk Factor 5.6 CALC High 0.0-4.0 LDL (Calculated) 151 CALC High 0-129 VLDL (Calculated) 21 mg/dL 0-50 Laboratory test finding 09/23/2011 Spears Shakir([facility] [place]) TSH 2.45 mIU/L 0.50-6.00 Free T3 3.17 pg/mL 2.00-4.90 Comprehensive Metabolic 09/23/2011 Spears Shakir([facility]) Albumin 4.6 g/dL 3.8-5.5 Prof Alk. Phos. 51 U/L 30-110 Alt (SGPT) [...] 13.2 Calc 8.0-36.0 Ua - Non Micro ([facility]) 09/23/2011 [facility] Appearance CLEAR (607)- - Color YELLOW Glucose NEG Bilirubin NEG Ketones 15 MG/DL # SP Grav 1.020 Blood NEG PH 5.5 Protein NEG Urobil 0.2 Nitrite NEG Leukocytes ([facility]) NEG Laboratory test finding 09/23/2011 Spears Shakir([facility]) TSH 2.45 mIU/L 0.50-6.00 Free T3 3.17 pg/mL 2.00-4.90 Comprehensive Metabolic 09/23/2011 Spears Shakir([facility]) Albumin 4.6 g/dL 3.8-5.5 Prof Alk. Phos. 51 U/L 30-110 Alt (SGPT) [...] BUN/Creat Ratio 13.2 Calc 8.0-36.0 CBC Electronic ([facility]ma) 08/04/2010 [facility] WBC 6.2 3.6-9.6 (607)- - RBC 4.45 [...] 08/04/2010 [facility] Iron 80 g/dL 30-158 [address] [place] [address] [phone] Total Iron Binding Cap. 388 g/dL 250-450 % Iron Saturation 20.6 % 13.0-45.0 Basic Metabolic Profile 08/04/2010 [facility](a) BUN 15 mg/dL 6- 26 Calcium 8.6 mg/dL 8.6-10.2 Chloride 95 mEq/L 94-112 Creatinine 0.9 mg/dL 0.6-1.4 Carbon Dioxide 21 mEq/L 21-32 Glucose 89 mg/dL 70-105 Sodium 143 mEq/L 134-149 Potassium 4.7 mEq/L 3.6-5.5 BUN/Creat Ratio 15.7 Calc 8.0-36.0 Comprehensive Metabolic 09/11/2009 Regan Shakir([facility]) Albumin 4.2 g/dL 3.8-5.5 Prof Alk. Phos. 48 U/L 30-110 Alt (SGPT) [...] BUN/Creat Ratio 14.7 Calc 8.0-36.0 Laboratory test 09/11/2009 Regan Shakir([facility] [place]) Free T4 1.29 ng/dL 0.75- 1.54 finding TSH 0.83 mIU/L 0.50-6.00 CBC ([facility]) 09/11/2009 [facility] WBC 5.7 3.6-9.6 (607)- - RBC [...] Volume 9.6 7.4-10.4 Ua - Non Micro ([facility]) 09/08/2009 [facility] Appearance CLEAR (607)- - Color YELLOW Glucose NEG Bilirubin NEG Ketones TRACE # SP Grav 1.020 Blood NEG PH 5.5 Protein NEG Urobil 0.2 E.U./dL Nitrite NEG Leukocytes ([facility]) NEG 1 2 gold top sst tubes sent 2 Positive: 5 of the following Borrelia-specific bands: 18,23,28,30,39,41,45,58, 66, and 93. Negative: No bands or banding patterns which do not meet positive criteria. 3 Note: An equivocal or positive EIA result followed by a negative Western Blot result is considered NEGATIVE. An equivocal or positive EIA result followed by a positive Western Blot is considered POSITIVE by the CDC. Positive: 2 of the following bands: 23,39 or 41 Negative: No bands or banding patterns which do not meet positive criteria. Criteria for positivity are those recommended by CDC/ASTPHLD. p23=Osp C, w26=omekvtyip Note: Sera from individuals with the following may cross react in the Lyme Western Blot assays: other spirochetal diseases (periodontal disease, leptospirosis, relapsing fever, yaws, and pinta); connective autoimmune (Rheumatoid Arthritis and Systemic Lupus Erythematosus and also individuals with Antinuclear Antibody); other infections ([place] Spotted Fever; Braden-Mercado Virus, and Cytomegalovirus). 4 Negative <36.0 Equivocal 36.0 - 43.9 Positive >43.9 5 Hepatitis A, Hepatitis C and HIV antibodies may cross-react with this assay. Negative < 9.0 Equivocal 9.0 - 10.9 Positive >10.9 6 Negative <18.0 Equivocal 18.0 - 21.9 Positive >21.9 7 Negative <18.0 Equivocal 18.0 - 21.9 Positive >21.9 8 EBV Interpretation Chart Interpretation EBV-IgM EA(D)-IgG VCA-IgG EBNA-IgG EBV Seronegative - - - - Early Phase + - - - Acute Primary + +or- + - Infection Convalescence/Past - +or- + + Infection Reactivated +or- + + + Infection + Antibody Present - Antibody Absent 9 Desirable: <150 Borderline High: 150-199 High: 200-499 Very High: >500 10 Desirable: <200 Borderline High: 200-239 High: >239 11 Low: <40 Desirable: 40-60 High: >60 12 Desirable: <100 Near Optimal: 100-129 Borderline High: 130-159 High: 160-189 Very High: >189 13 Because ethnic data is not always readily [...] 15-29 5 Kidney failure <15 (or dialysis) 14 Test Performed by: [facility] [place] [address] 15 ADDITIONAL INFORMATION Testing performed by [facility]. This test was developed and its performance characteristics determined by [facility] in a manner consistent with CLIA requirements. This test has not been cleared or approved by the U.S. Food and Drug Administration. 16 ADDITIONAL INFORMATION Testing performed by Liquid Chromatography-Tandem Mass Spectrometry (LC-MS/MS). This test was developed and its performance characteristics determined by [facility] in a manner consistent with CLIA requirements. This test has not been cleared or approved by the U.S. Food and Drug Administration. Test Performed by: [facility] [place] [address] 17 RESULTS VERIFIED BY REPEAT ANALYSIS 18 Please note: The following may produce [...] pg/mL: likely moderate to severe CHF 20 Because ethnic data is not always readily [...] 15-29 5 Kidney failure <15 (or dialysis) 21 99th percentile=0.04 ng/mL Troponin results at [facility] are not interchangeable. 22 <5.0 Negative 5.0 - 25.0 Indeterminate (Repeat testing recommended after 72 hours) >25.0 Positive Perimenopausal women can display HCG levels of up to 20 mIU/mL 23 consistent w/ previous results 24 RESULTS VERIFIED BY REPEAT ANALYSIS 25 ADDITIONAL INFORMATION This test was developed and its performance characteristics determined by [facility] in a manner consistent with CLIA requirements. This test has not been cleared or approved by the U.S. Food and Drug Administration. Test Performed by: [facility] [address] [address] 26 RESULTS VERIFIED BY REPEAT ANALYSIS 27 1POUR OFF [id number] 28 Suggestive of nonceliac gluten sensitivity. The patient may benefit from a gluten-free diet. 29 Thyroglobulin Antibody measured by [facility] 30 RESULTS VERIFIED BY REPEAT ANALYSIS 31 <5.0 Negative 5.0 - 25.0 Indeterminate (Repeat testing recommended after 72 hours) >25.0 Positive Perimenopausal women can display HCG levels of up to 20 mIU/mL 32 4 sst 33 Index Value: Specimen reactivity relative to the negative cutoff. 34 [facility] is in the process of converting HIV preliminary testing with reflex to supplemental testing from 3rd generation to 4th generation HIV. This conversion is pending availability at regional laboratories. Additional information will be forthcoming, however [facility]'s goal is to ensure a smooth transition to the HIV 4th, therefore we are targeting July 06, 2015 as the effective date. Should you choose to convert your HIV preliminary testing from 3rd generation to 4th generation in advance of this effective date, you may experience turn-around time delays. 35 Negative: < 0.8 Indeterminate: 0.8 - 0.9 Positive: > 0.9 The CDC recommends that a positive HCV antibody result be followed up with a HCV Nucleic Acid Amplification test (177220). 36 Negative <36.0 Equivocal 36.0 - 43.9 Positive >43.9 37 Hepatitis A, Hepatitis C and HIV antibodies may cross-react with this assay. Negative < 9.0 Equivocal 9.0 - 10.9 Positive >10.9 38 Negative <18.0 Equivocal 18.0 - 21.9 Positive >21.9 39 Negative <18.0 Equivocal 18.0 - 21.9 Positive >21.9 40 EBV Interpretation Chart Interpretation EBV-IgM EA(D)-IgG VCA-IgG EBNA-IgG EBV Seronegative - - - - Early Phase + - - - Acute Primary + +or- + - Infection Convalescence/Past - +or- + + Infection Reactivated +or- + + + Infection + Antibody Present - Antibody Absent 41 1 SST 42 Negative <36.0 Equivocal 36.0 - 43.9 Positive >43.9 43 Hepatitis A, Hepatitis C and HIV antibodies may cross-react with this assay. Negative < 9.0 Equivocal 9.0 - 10.9 Positive >10.9 44 Negative <18.0 Equivocal 18.0 - 21.9 Positive >21.9 45 Negative <18.0 Equivocal 18.0 - 21.9 Positive >21.9 46 EBV Interpretation Chart Interpretation EBV-IgM EA(D)-IgG VCA-IgG EBNA-IgG EBV Seronegative - - - - Early Phase + - - - Acute Primary + +or- + - Infection Convalescence/Past - +or- + + Infection Reactivated +or- + + + Infection + Antibody Present - Antibody Absent 47 Normal Range 180 to 914 Indeterminate Range 145 to 180 Deficient Range <145 48 Positive in 50% of persons with pernicious anemia. Test Performed by: [address] [address] Radiology Specialist: Mg Moreland II, M.D., Ph.D. 49 Because ethnic data is not always readily [...] 15-29 5 Kidney failure <15 (or dialysis) 50 Serologic response to B. burgdorferi infection is not detected, but cannot rule out early infection during which low or undetectable antibody levels to B. burgdorferi may be present. If clinically indicated, a new serum specimen should be submitted in 7-14 days. Test Performed by: [place] [address] Radiology Specialist: Mg Moreland II, M.D., Ph.D. 51 <5.0 Negative 5.0 - 25.0 Indeterminate >25.0 Positive 52 Normally menstruating females - Follicular phase 3 - 9 - Mid-cycle peak 4 - 23 - Luteal phase 1 - 6 Postmenopausal females 16 - 114 53 Normally menstruating females - Follicular Phase 1 - 18 - Mid-Cycle Peak 24 - 105 - Luteal Phase 0.6 - 20 Postmenopausal females 15 - 62 54 Test Performed by: [place] [address] Radiology Specialist: Shant Valadez III, M.D. 55 Test Performed by: [address] [address] Radiology Specialist: Shant Valadez III, M.D. 56 RESULT AVIS'D 57 -- REFERENCE VALUE -- 25-HYDROXY D TOTAL (D2+D3) Optimum levels in the healthy population are 20-50, patients with bone disease may benefit from higher levels within this range. Test Performed by: [place] [address] Radiology Specialist: Shant Valadez III, M.D. 58 The thyroglobulin testing method is an immunoenzymatic assay manufactured by [employer] and performed on the [employer] TEK DXI 800. The thyroglobulin antibody testing method [...] give falsely lower results. Test Performed by: [facility] [place] [address] Radiology Specialist: Shant Valadez III, M.D. 59 Quantitation of thyroglobulin may be unreliable due to the presence of anti-thyroglobulin antibodies. -- REFERENCE VALUE -- <=33 Athyrotic individuals normally have hTg values <=2. 60 Reference Range and Interpretation: TnI (ng/mL) Interpretation Less Than 0.06 ng/mL Not supportive of diagnosis of [place] 0.06 - 0.50 ng/mL Indeterminate: suggest serial studies if clinically indicated. Greater than 0.5 ng/mL Consistent with diagnosis of [place] 61 Because ethnic data is not always readily [...] 15-29 5 Kidney failure <15 (or dialysis) 62 Refractometer result [] confirmed by AUTOINS at 2126 on 10/06/12. 63 RUN DATE: 10/08/12 [facility] LAB LIVE PAGE 1 RUN TIME: [address] [place] [address] Specimen Inquiry Name: OLIVERIO PRATHER : [address]: Mg Olmos MD Acct: [id number] Unit: [id number] AGE: 26 Location: ED Re10/06/12 SEX: F Status: DEP ER SPEC: [id number] JORGE L: 10/06/[address] [facility] [address]: Erich Ortiz MD REQ: [id number] RECD: 10/06/12 STATUS: FLORENCIO MATUTE DR: Marci Graves MD _ SOURCE: URINE SPDESC: ORDERED: Urine Culture Procedure Result Verified Site Urine Culture Final 10/08/12- 0948 ML Organism 1 NORMAL SHAKIR [place] Count >100,000 (Many) CFU/ML END OF REPORT * ML=Testing performed at Main Lab DEPARTMENT OF PATHOLOGY, [address] [place] [address] Charles Solano M.D. Director [facility] Permit #[id number] 64 Because ethnic data is not always readily [...] 15-29 5 Kidney failure <15 (or dialysis) 65 1 sst 66 . Less than 5: Negative for 6 [...] HCG-like substances, trophoblastic or non-trophoblastic neoplasms. . 67 FASTING; 3SST 68 Vitamin D deficiency has been defined by the [place] of Medicine and an Endocrine Society practice guideline as a level of serum 25-OH vitamin D less than 20 ng/mL (1,2). The Endocrine Society went on to further define vitamin D insufficiency as a level between 21 and 29 ng/mL (2). 1. IOM ([place] of Medicine). 2010. Dietary reference intakes for calcium and D. [place]: The National Academies Press. 2. Alex MF, Rose NC, Delroy MONTOYA, et al. Evaluation, treatment, and prevention of vitamin D deficiency: an Endocrine Society clinical practice guideline. JCEM. 2010; 96(7):1911-30. 69 Please note reference interval change 70 Siemens (DPC) ICMA Methodology Procedures Date Code Description Status 05/28/2015 48603 Pulse Oximetry Completed 03/26/2014 30103 Pulse Oximetry Completed 09/18/2012 46774 Pulse Oximetry Completed 02/25/2011 69615 Electrocardiogram Complete Completed 01/12/2010 08694 Electrocardiogram Complete Completed 09/08/2009 89494 Electrocardiogram Complete Completed Encounters Type Date Location Provider Dx Diagnosis Office Visit 08/06/2018 [facility] Office Chana Bae, R42 Dizziness and 2:00p Afnp-C giddiness F41.9 Anxiety disorder, unspecified Office Visit 07/12/2018 3:20p Main Office Marci Graves, R55 Syncope and M.D. collapse F43.22 Adjustment disorder with anxiety H81.10 Benign paroxysmal vertigo, unspecified ear R07.0 Pain in throat Office Visit 07/06/2018 2:40p [facility] Marci Bradford J02.9 Acute pharyngitis, Brea Graves unspecified R07.0 Pain in throat K21.9 Gastro-esophageal reflux disease without esophagitis E66.3 Overweight Office Visit 03/20/2018 2:00p Main Office Marci Graves, Z00.00 Encntr for Brea general adult medical exam w/o abnormal findings G47.33 Obstructive sleep apnea (adult) (pediatric) E66.3 Overweight E03.9 Hypothyroidism, unspecified Office Visit 02/17/2018 12:40p Main Office Marci Knight02.9 Acute pharyngitis, Brea Graves unspecified E66.3 Overweight Office Visit 07/05/2017 10:00a [facility] Zuri Rodríguez J06.9 Acute upper Juanito, [employer] respiratory infection, unspecified Office Visit 02/15/2017 7:00p Main Office Marci Bradford M54.89 Other dorsalgia Brea Graves E66.3 Overweight R68.89 Other general symptoms and signs Office Visit 10/19/2016 3:40p Main Office Marci Bradford A69.20 Lyme diseaseEly M.D. unspecified M54.89 Other dorsalgia E66.3 Overweight Office Visit 08/15/2016 10:00a Main Office Marci Graves Z00.00 Encntr yulisa Guidry general adult medical exam w/o abnormal findings [...] 8:15a Main Office Darlene E06.3 Autoimmune Yoel, [employer] thyroiditis E66.3 Overweight F34.1 Dysthymic disorder A69.20 Lyme disease, unspecified Office Visit 02/25/2016 9:45a [facility] Kya Matias4.5 Low back pain [employer] Office Visit 01/06/2016 9:15a Main Office Gloria Mei, J06.9 Acute upper [employer] respiratory infection, unspecified Office Visit 11/25/2015 2:45p [facility] Darlene R60.0 Localized edema Yoel, [employer] E66.3 Overweight F34.1 Dysthymic disorder E06.3 Autoimmune thyroiditis E78.1 Pure hyperglyceridemia Office Visit 09/04/2015 1:45p [facility] Darlene R60.0 Localized edema Yoel, [employer] Office Visit 08/07/2015 4:30p [facility] Darlene E66.3 Overweight Yoel, [employer]UDITOR F34.1 Dysthymic disorder Office Visit 06/23/2015 3:00p Main Office Darlene Diallo, [employer] E66.3 Overweight O20.0 Threatened R53.83 Other fatigue Office Visit 05/28/2015 11:00a Main Office Darlene Diallo [employer] R05 Cough J20.9 Acute bronchitis, unspecified R53.83 Other fatigue Office Visit 03/31/2015 11:20a [facility] Marci Bradford R53.83 Other fatigue Brea Graves E66.3 Overweight Office Visit 03/12/2015 10:40a [facility] Marci Bradford Z00.01 Encounter for Brea Graves general adult medical exam w abnormal findings J02.0 Streptococcal pharyngitis E66.3 Overweight E06.3 Autoimmune thyroiditis E78.1 Pure hyperglyceridemia Office Visit 12/29/2014 3:00p [facility] Darlene Cottobhart [employer] 724.2 Lumbago 724.1 Pain Thoracic Spine 723.1 [...] Office Darlene 782.9 Skin & 8:00a Yoel, [employer] Integumentary Tissue Other Symptoms Office Visit 12/07/2012 Main Office Gloria Hurley, 455.3 Hemorrhoids 2:45p [employer] External W/O Complication Office Visit 09/18/2012 Main Office Brenda Marcum, 780.57 Unspecified Sleep 11:45a Afnp-C Apnea Office Visit 01/13/2012 [facility] Marci Bradford V22.2 State 3:20p Office Brea Graves Incidental Normal 278.02 Overweight Office Visit 09/23/2011 10:00a [facility] Office Marci Bradford V70.0 Examination Brea Graves General Medical Routine AT [facility] 281.9 Anemia Deficiency Unspec 706.2 Sebaceous Cyst V18.19 Family HX Other Endocrine And Metabolic Diseases 278.02 Overweight 268.9 Vitamin D Deficiency Unspec 782.0 Skin Sensation Disturbance Office Visit 02/25/2011 11:20a [facility] Marci Bradford 785.1 Palpitations Brea Graves Office Visit 08/25/2010 2:15p [facility] Darlene biswas.2 Sebaceous Krish Callahan M.D. Office Visit 08/04/2010 1:20p Main Office Marci Bradford 706.2 Sebaceous Cyst Brea Graves 281.9 Anemia Deficiency Unspec 785.1 Palpitations V18.19 Family HX Other Endocrine And Metabolic Diseases Office Visit 01/12/2010 3:00p Main Office Marci Bradford 785.1 Palpitations Brea Graves Office Visit 09/08/2009 3:00p Main Office Marci Bradford V70.0 Examination General Brea Graves Medical Routine AT [facility] 785.1 Palpitations Office Visit 07/29/2009 1:20p Main Office Marci Graves, 466.0 Bronchitis Acute Brea Plan of Treatment Future Appointment(s):10/12/2018 9:40 am - Marci Graves M.D. at [facility] [id number]/11/2018 - Lashawn Franklin, PAR06.2 WheezingNew Medication: Albuterol Sulfate HFA 108(90 Base) mcg/Act - Use as needed for wheezing.Comments :Start Claritin Start Inhaler as needed before exercising or when wheezing- albuterolIf this does nothelp then please let me know. May need a trial of antibiotics. Also could try Sambucol Cold and Flu Tablets - Elderberry.E66.9 Obesity, unspecifiedComments:Look up Medical Medium- making dietary changes can make a huge difference.Whole30- Elimination Diet Sri Lin - Functional Medicine Doctor in Community HealthComments:PCMHMedication Management Patient Understands medications he's taking? Yes Are there Barriers to Adherence? No Has the patient been asked about herbal supplements and therapies, and OTC meds? Yes Care Plan1. Patient has been queried about patient's goals/preferences and functional/lifestyle goals at relevant visits. Yes If relevant, describe: N/A2. Treatment goals as explained to the patient: above3. Are there barriers to meeting treatment goals? No If Yes , please describe:4. Self-Management goals as described to the patient: Yes As always, we strongly encourage a healthy diet and making physical activity a part of your every day life. If you have questions about how or where to start, please contact the office.
[2018-09-25 18:15] VITALS: BP 166/97
[2018-09-25] MEDS ORDERED: Acetaminophen TAB* 325 MG PO ONE (18:51)
--- NOTE | 2018-09-25 19:13 | UC ---
FLU HPI - HPI Summary HPI Summary: 32 y/o female presents to the urgent care c/o neck pain, upper back pain, chills , body aches , palpitations and a tingling sensation down in her lower extremities since this afternoon around 1400pm. Pt w/ PMHX of hypothyrodism and Metabolic syndrome. Yesterday she experienced fatigue. This morning she felt more tired than usual and now her face and neck feels flushed associated w/ a MONTOYA which is about 8/10 in severity. Pt reports on 08/29/2018 she was in [place] at an urgent care and Dx w/ tonsillitis and Rx Predniosne PO. But recalls she has experienced a chronic sore throat for the past 3 months and she has been managed by her PCP and ENT which have done several testing which included a Lyme serolory and Monospot in 06/2018, which were negative. She was also seen by ENT for a f/u yesterday, but she didn't have today's symptoms. Now she feels her heart is raising and RT side chest pain w/ severe neck pain and upper back pain between the scapulas. She also states Hx of Lyme disease years ago which was treated for about 8 months. Last week she had a tick bite, but can't recall if it was engorged. Pt denies SOB, dizziness, abdominal pain, N/V/D, constipation, flank pain, Hx of STD's. - History of Current Complaint Chief Complaint: UCGeneralIllness Stated Complaint: FEVER, CHILLS Time Seen by Provider: 09/25/18 18:29 Hx Obtained From: Patient Hx Last Menstrual Period: 10/27/16 Onset/Duration: Gradual Onset Severity Currently: Mild Severity Initially: Moderate Pain Intensity: 8 - neck pain and MONTOYA Pain Scale Used: 0-10 Numeric Associated Signs & Symptoms: Positive: Fever, Myalgia, Headache - Risk Factors Influenza Risk Factors: Negative - Allergy/Home Medications Allergies/Adverse Reactions: Allergies Allergy/AdvReac Type Severity Reaction Status Date / Time amoxicillin Allergy Rash Verified 09/25/18 18:16 cephalexin [From Keflex] Allergy Rash Verified 09/25/18 18:16 naproxen Allergy Swelling Verified 09/25/18 18:16 Home Medications: Home Medications Loratadine/Pseudoephedrine [Claritin-D 12 Hour] 1 tab PO DAILY 09/25/18 [History ] PMH/Surg Hx/FS Hx/Imm Hx Previously Healthy: Yes Endocrine History: Hypothyroidism Other Endocrine History: Metabolic syndrome - Surgical History Surgical History: None - Family History Known Family History: Positive: Hypertension, Diabetes - Social History Occupation: Employed Full-time Lives: With Family Alcohol Use: None Substance Use Type: None Smoking Status (MU): Never Smoked Tobacco Have You Smoked in the Last Year: No - Immunization History Vaccination Up to Date: Yes Review of Systems All Other Systems Reviewed And Are Negative: Yes Constitutional: Positive: Fever, Chills, Fatigue Skin: Positive: Negative Eyes: Positive: Negative ENT: Positive: Sore Throat Respiratory: Positive: Negative Cardiovascular: Positive: Negative Gastrointestinal: Positive: Negative Genitourinary: Positive: Negative Motor: Positive: Negative Neurovascular: Positive: Negative Musculoskeletal: Positive: Other: - neck pain and upper back pain radiating doen to her lower back w/ tingling senation over B/L lower legs Neurological: Positive: Headache Psychological: Positive: Negative Is Patient Immunocompromised?: No Physical Exam - Summary Physical Exam Summary: VITAL SIGNS: Reviewed. GENERAL: Patient is a well developed and nourished obese female who is sitting comfortable in the examining table. Patient is not in any acute respiratory distress. HEAD AND FACE: No signs of trauma. No ecchymosis, hematomas or skull depressions. No sinus tenderness. EYES: PERRLA, EOMI x 2, No injected conjunctiva, no nystagmus. No photophobia. EARS: Hearing grossly intact. Ear canals and tympanic membranes are within normal limits. MOUTH: Positive pharynx with mild erythema, no exudates, no palatal petechiae. no B/L tonsillar enlargement . Uvula in midline. NECK: Supple, trachea is midline, Positive anterior cervical lymphadenopathy, no JVD, no carotid bruit, no c-spine tenderness, neck with full ROM. No meningeal signs, no Kernig's or brudzinskis signs. CHEST: Symmetric, no tenderness at palpation LUNGS: Clear to auscultation bilaterally. No wheezing or crackles. CVS: Regular rate and rhythm, S1 and S2 present, no murmurs or gallops appreciated. ABDOMEN: Soft, non-tender. No signs of distention. No rebound no guarding, and no masses palpated. Bowel sounds are normal. EXTREMITIES: FROM in all major joints, no edema, no cyanosis or clubbing. NEURO: Alert and oriented x 3. No acute neurological deficits. Speech is normal and follows commands. SKIN: Dry and warm Triage Information Reviewed: Yes Vital Signs: Initial Vital Signs Temp 98.6 F 09/25/18 18:11 Pulse 122 09/25/18 18:11 Resp 18 09/25/18 18:11 BP 166/97 09/25/18 18:11 Pulse Ox 100 09/25/18 18:11 Flu Course/Dx - Course Course Of Treatment: 32 y/o female presents to the urgent care c/o neck pain, upper back pain, chills , body aches , palpitations and a tingling sensation down in her lower extremities since this afternoon around 1400pm. Pt w/ PMHX of hypothyrodism and Metabolic syndrome. Yesterday she experienced fatigue. This morning she felt more tired than usual and now her face and neck feels flushed associated w/ a MONTOYA which is about 8/10 in severity. Pt reports on 08/29/2018 she was in [place] at an urgent care and Dx w/ tonsillitis and Rx Predniosne PO. But recalls she has experienced a chronic sore throat for the past 3 months and she has been managed by her PCP and ENT which have done several testing which included a Lyme serolory and Monospot in 06/2018, which were negative. She was also seen by ENT for a f/u yesterday, but she didn't have today's symptoms. Now she feels her heart is raising and RT side chest pain w/ severe neck pain and upper back pain between the scapulas. She also states Hx of Lyme disease years ago which was treated for about 8 months. Last week she had a tick bite, but can't recall if it was engorged. Pt denies SOB, dizziness, abdominal pain, N/V/D, constipation, flank pain, rash, Hx of STD's, denies smoking, use of OCP, recent surgery, or HX DVT or PE. Hx obtained. Pt is afebrile and tachycardic 122bpm. diaphoretic w/ RT side neck tenderness on palpation and FROM of neck w/ o any meningeal signs on examination. EKG ordered: HR:99bp, NSR, no ST elevation or depression observed. Pt is not feeling well, diaphoretic w/ face and neck flushed. Pt needs further blood work to r/o meningitis, viral syndrome , Thyroid abnormality or possible PE. I discussed Pt's symptoms w/ DR Garcia and she recommended to re-check temp. Temp now is 100.4F. Pt given Tylenol PO by the nurse. Pt tolerated well medication and started to feel better. Pt explained the importance to go to a higher level of care for further management on her symptoms. Pt offered ambulance transfer to the ER which she declined. She states she will go by private car. I called [facility] and discussed Pt's symptoms w/ DR Martinez who accepted the Pt. Pt left the clinic hemodynamically stable, A&OX3 and ambulating. - Differential Dx/Diagnosis Differential Diagnosis/HQI/PQRI: Bronchitis, Influenza, Pneumonia, Upper Respiratory Infection, Other - Meningitis, viral syndrome, PE, Provider Diagnosis: Neck pain, Viral syndrome, Headache Discharge - Sign-Out/Discharge Documenting (check all that apply): Patient Departure - highly recommended to to to the [facility] for further management in your symptoms All imaging exams completed and their final reports reviewed: No Studies - Discharge Plan Condition: Stable Disposition: HOME-RECOMMEND TO ED Patient Education Materials: Viral Syndrome (ED) Referrals: Marci Graves MD [Primary Care Provider] - Additional Instructions: I think you need a higher level or care for your presenting symptoms. I highly recommend you to go to the ER for further evaluation and treatment. The risks of not going can be , PE, heart attack, meningitis or viral syndrome etc. I spoke to the ER attending . They are expecting you. - Billing Disposition and Condition Condition: STABLE Disposition: Home-Recommend to ED - Attestation Statements Provider Attestation: I was available for consult. This patient was seen by the LUCY. The patient was not presented to, seen by, or examined by me. -Deniz
== END 2018-09-25 19:38 | disposition home health service (06) ==
LOC: UCEAST 17:28
DX: M54.2 Cervicalgia (principal); B34.9 Viral infection, unspecified; R51 Headache
CPT/HCPCS: 87651; 99212; A9270-GY; G0463

== ENCOUNTER 2018-09-25 19:51 | Emergency (ER) | payer OTHER ==
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
[2018-09-25 21:39] LABS: ABS Lymphocytes 1.1 10^3/ul (1.0-4.8); ABS Monocytes 0.2 10^3/ul (0-0.8); ABS Neutrophils 3.8 10^3/ul (1.5-7.7); Eosinophil % 0.7 %; Hematocrit 39 % (35-47); Hemoglobin 12.7 g/dL (12.0-16.0); Lymphocyte % 21.4 %; Mean Corpuscular HGB Conc 33 g/dL (31-36); Mean Corpuscular Hemoglobin 26 pg (27-31); Mean Corpuscular Volume 80 fL (80-97); Mean Platelet Volume 7.5 fL (7.4-10.4); Platelet Count 237 10^3/uL (150-450); Red Blood Count 4.82 10^6 /uL (3.70-4.87); Red Cell Distribution Width 16 % (10-15); White Blood Count 5.1 10^3/uL (3.5-10.8)
[2018-09-25] MEDS: Cyclobenzaprine TAB* 10 MG PO ONE (21:43)
[2018-09-25 21:51] LABS: Albumin/Globulin Ratio 1.3 (1-3); BUN/Creatinine Ratio 11.4 (8-20); Calcium 8.9 mg/dL (8.6-10.3); EGFR Non-African American 73.6 (>60); Globulin 3.2 g/dL (2-4); Potassium 3.7 mmol/L (3.5-5.0); Total Bilirubin 0.4 mg/dL (0.2-1.0); Total Protein 7.2 g/dL (6.4-8.9)
[2018-09-25 21:57] LABS: CKMB ng/mL 1.5 ng/mL (0.6-6.3)
[2018-09-25] MEDS: NS 0.9% 1000 ML** 1,000 ML BOLUS SCH (21:57)
[2018-09-25] MEDS: HYDROcodone/ACETAMIN 5-325 MG* 1 TAB PO ONE (21:57)
[2018-09-25] MEDS: oxyCODONE/Acetamin 5/325 MG* TAB PO ONE (21:58)
[2018-09-25] MEDS: Morphine 4 MG/ML VIAL (1 ml) 4 MG/ML VIAL IV ONE (21:58)
[2018-09-25 22:07] LABS: Urine Appearance Clear; Urine Bacteria Absent (Absent); Urine Bilirubin Negative (Negative); Urine Blood 3+ (Negative); Urine Color Straw; Urine Glucose Negative (Negative); Urine Ketones Negative (Negative); Urine Nitrite Negative (Negative); Urine Protein Negative (Negative); Urine Red Blood Cell 3+(>10/hpf) (Absent); Urine Specific Gravity 1.003 (1.010-1.030); Urine Urobilinogen Negative (Negative); Urine White Blood Cell Trace(0-5/hpf) (Absent)
[2018-09-25 22:12] LABS: TSH (Thyroid Stimulating Horm) 1.72 mcIU/mL (0.34-5.60)
[2018-09-25 22:14] LABS: Free T4 0.86 ng/dL (0.61-1.12)
[2018-09-25] MEDS: NS 0.9% 1000 ML** 1,000 ML BOLUS ONE (22:41)
[2018-09-25] MEDS: Ketorolac INJ* 30 MG/ML 1 ML VIAL IV PUSH ONE (23:30)
[2018-09-25 23:32] VITALS: BP 140/78
[2018-09-25 23:35] LABS: C Reactive Protein 4.77 mg/L (<8.01)
--- NOTE | 2018-09-26 00:34 | ED ---
Progress - Progress Note Progress Note: Patient is signed out from Dr. Martinez upon shift change at 22:00 09/25/18, awaiting CTA Chest and pending disposition. CTA Chest/Thorax, per radiologist: 1. No acute findings. 2. No pulmonary emboli to the level of proximal segmental branches. Limited evaluation of distal segmental and subsegmental branches due to suboptimal opacification of contrast. ED physician has reviewed this report. Re-Evaluation - Re-Evaluation First Eval Re-Evaluation Time: 02:23 Comment: Patient informed of CTA results. Patient feels tired and ready to go home. Course/Dx - Course Course Of Treatment: Patient is signed out from Dr. Martinez upon shift change at 22:00 09/25/18, awaiting CTA Chest and pending disposition. CTA Chest/Thorax, per radiologist: 1. No acute findings. 2. No pulmonary emboli to the level of proximal segmental branches. Limited evaluation of distal segmental and subsegmental branches due to suboptimal opacification of contrast. Patient will be discharged home with prescription for Flexeril and Motrin and follow up from primary care provider in 3 days. Patient was instructed to return to ED for new or worsening symptoms. Patient understands and is agreeable to discharge plan. - Diagnoses Provider Diagnoses: Muscular pain, Headache Discharge - Sign-Out/Discharge Documenting (check all that apply): Patient Departure - Discharge Patient Received Moderate/Deep Sedation with Procedure: No - Discharge Plan Condition: Stable Disposition: HOME Prescriptions: Cyclobenzaprine TAB* [Flexeril 10 MG TAB*] 10 mg PO TID PRN #14 tab PRN Reason: Spasms - Neck Ibuprofen TAB* [Motrin TAB* 800 MG] 800 mg PO Q6H PRN #30 tab PRN Reason: Pain Patient Education Materials: Musculoskeletal Pain (ED), General Headache (ED) Forms: *Work Release Referrals: Marci Graves MD [Primary Care Provider] - 3 Days Additional Instructions: Follow up with your primary care provider in 3 days. PLEASE RETURN TO THE EMERGENCY DEPARTMENT IMMEDIATELY FOR WORSENING OR CONCERNING SYMPTOMS. - Attestation Statements Document Initiated by Scribe: Yes Documenting Scribe: Penny Pizano Provider For Whom Scribe is Documenting (Include Credential): Nighat Saucedo MD Scribe Attestation: Penny Kidd, scribed for Nighat Saucedo MD on 09/26/18 at 0228. Status of Scribe Document: Ready
[2018-09-26] MEDS: Iohexol 350* (CONTRAST) 500 ML MDV IV ONE (01:22)
== END 2018-09-26 02:36 | disposition home or self-care (01) ==
LOC: ED 19:51
DX: M79.10 Myalgia, unspecified site (principal); R51 Headache
CPT/HCPCS: 36415; 71046; 71275; 80053; 81003; 81015; 82553; 83605; 84439; 84443; 84484; 85025; 85379; 86140; 86618; 87040; 87086; 93005; 96361; 96374; 96375; 99283; A9270-GY; J1885; J2270; Q9967

== ENCOUNTER 2019-05-15 16:20 | Emergency (ER) | payer OTHER ==
[2019-05-15 17:20] VITALS: BP 135/90
--- NOTE | 2019-05-15 17:21 | UC ---
Abdominal Pain Female HPI - HPI Summary HPI Summary: 33-year-old woman comes in with a chief complaint of upper abdominal pain. Started about 6 hours ago. Pains about 5 out of 10. Patient also feels hot like she has a fever. She has no appetite. No vomiting. Had a normal bowel movement today. Denies any urinary symptoms. No prior abdominal surgeries. The past several months she's had several episodes of upper abdominal pain that resolved on their own. Denies any chest congestion or shortness of breath or respiratory symptoms. - History of Current Complaint Chief Complaint: UCAbdominalPain Stated Complaint: ABDOMINAL PAIN Time Seen by Provider: 05/15/19 16:47 Hx Last Menstrual Period: 05/03/19 Pain Intensity: 5 Allergies/Adverse Reactions: Allergies Allergy/AdvReac Type Severity Reaction Status Date / Time amoxicillin Allergy Rash Verified 05/15/19 16:44 cephalexin [From Keflex] Allergy Rash Verified 05/15/19 16:44 naproxen Allergy Swelling Verified 05/15/19 16:44 PMH/Surg Hx/FS Hx/Imm Hx Previously Healthy: Yes Endocrine History: Hypothyroidism Respiratory History: Asthma GI/ History: Gastroesophageal Reflux - Surgical History Surgical History: None - Family History Known Family History: Positive: Hypertension, Diabetes - Social History Alcohol Use: None Substance Use Type: None Smoking Status (MU): Never Smoked Tobacco Have You Smoked in the Last Year: No - Immunization History Vaccination Up to Date: Yes Review of Systems All Other Systems Reviewed And Are Negative: Yes Constitutional: Positive: Other - SEE HPI Skin: Positive: Negative Eyes: Positive: Negative ENT: Positive: Negative Respiratory: Positive: Negative Cardiovascular: Positive: Negative Gastrointestinal: Positive: Abdominal Pain, Other - SEE HPI Genitourinary: Positive: Negative Motor: Positive: Negative Neurovascular: Positive: Negative Musculoskeletal: Positive: Negative Neurological: Positive: Negative Psychological: Positive: Negative Is Patient Immunocompromised?: No Physical Exam Triage Information Reviewed: Yes Appearance: Well-Appearing, Well-Nourished, Pain Distress - MILD Vital Signs: Initial Vital Signs Temp 99.3 F 05/15/19 16:32 Pulse 90 05/15/19 16:32 Resp 16 05/15/19 16:32 BP 200/100 05/15/19 16:32 Pulse Ox 97 05/15/19 16:32 Vital Signs Reviewed: Yes Eye Exam: Normal Eyes: Positive: Conjunctiva Clear Neck: Positive: Supple Respiratory: Positive: Lungs clear, Normal breath sounds, No respiratory distress Cardiovascular: Positive: RRR Abdomen Description: Positive: Other: - Tender to palpation epigastrium and left upper quadrant. Bowel Sounds: Positive: Hypoactive Musculoskeletal: Positive: Strength Intact, ROM Intact Neurological: Positive: Alert, Muscle Tone Normal Psychological: Positive: Age Appropriate Behavior Skin Exam: Normal Abd Pain Female Course/Dx - Course Course Of Treatment: With the patient having abdominal pain and feeling like she's getting worse and feeling like she has a fever I recommended further evaluation emergency Department. Patient prefers to go by POV. - Differential Dx/Diagnosis Provider Diagnosis: Abdominal pain, left upper quadrant Discharge ED - Sign-Out/Discharge Documenting (check all that apply): Patient Departure All imaging exams completed and their final reports reviewed: No Studies - Discharge Plan Condition: Stable Disposition: HOME-RECOMMEND TO ED Patient Education Materials: Acute Abdominal Pain (ED) Referrals: Marci Graves MD [Primary Care Provider] - Additional Instructions: GO DIRECTLY TO THE EMERGENCY DEPARTMENT FOR FURTHER EVALUATION OF YOUR ABDOMINAL PAIN. - Billing Disposition and Condition Condition: STABLE Disposition: Home-Recommend to ED
== END 2019-05-15 17:30 | disposition home health service (06) ==
LOC: UCEAST 16:20
DX: R10.12 Left upper quadrant pain (principal); J45.909 Unspecified asthma, uncomplicated; Z88.0 Allergy status to penicillin; Z88.6 Allergy status to analgesic agent; Z88.1 Allergy status to other antibiotic agents
CPT/HCPCS: 81003; 84702; 87086; 99212; G0463

== ENCOUNTER 2019-05-15 17:47 | Emergency (ER) | payer OTHER ==
--- OUTSIDE RECORDS SUMMARY | 2019-05-15 18:21 | XMS REPORT | Summary of Care ---
:1985 Author Organization [facility] Address [address] [place] [address] Care Team Providers Name Role Phone Marci Graves MD Primary Care Provider Reason for Visit Reason Comments Follow-up Thyroid Problem Weight Gain Encounter Details Date Type Department Care Team Description 03/20/2019 Office Visit Huy Brewer Primary hypothyroidism (Primary Dx); [facility] Morbid obesity with BMI of 50.0-59.9, adult; [address] Fatigue, unspecified type; [place] [address] PCOS (polycystic ovarian syndrome) [place], [place] [phone] [id number] [phone] Allergies Active Allergy Reactions Severity Noted Date Comments Azithromycin Rash Low 03/16/2017 Cephalexin Rash Low 03/16/2017 documented as of this encounter (statuses as of 03/20/2019) Medications Medication Sig Dispensed Refills Start End Date Status Date levothyroxine Take 100 mcg 0 Active (SYNTHROID, by mouth LEVOTHROID) 100 MCG Daily tablet hydrOXYzine HCl 25 0 Active MG Oral Tablet 9 (ATARAX) Ibuprofen 800 MG 0 Active Oral Tablet 9 (ADVIL,MOTRIN) Cyclobenzaprine HCl 0 Active 10 MG Oral Tablet 9 (FLEXERIL) Pantoprazole Sodium 0 Active 40 MG Oral Tablet 9 Delayed Release (PROTONIX) ProAir HFA 108 (90 0 Active Base) MCG/ACT 9 Inhalation Aerosol Solution metFORMIN HCl ER 500 Take 1 tablet 120 tablet 6 03/18/20 Active MG Oral Tablet by mouth 9 20 Extended Release 24 daily with Hour (GLUCOPHAGE-XR) breakfast metformin Take 1 tablet 60 tablet 5 03/20/20 Discontinued (GLUCOPHAGE-XR) 500 by mouth Two 9 19 (Therapy MG 24 hr tablet Times Daily completed) documented as of this encounter (statuses as of 03/20/2019) Active Problems Problem Noted Date BMI 50.0-59.9, adult 04/23/2018 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 documented as of this encounter Last Filed Vital Signs Vital Sign Reading Time Taken Comments Blood Pressure 130/88 03/20/2019 9:18 AM EST Pulse 76 03/20/2019 9:18 AM EST Temperature - - Respiratory Rate 12 03/20/2019 9:18 AM EST Oxygen Saturation - - Inhaled Oxygen Concentration - - Weight 164.2 kg (362 lb) 03/20/2019 9:18 AM EST Height 180.5 cm (5' 11.06") 03/20/2019 9:18 AM EST Body Mass Index 50.4 03/20/2019 9:18 AM EST documented in this encounter Patient Instructions Patient InstructionsHuy Gonzalez MD - 03/20/2019 9:20 AM ESTPlease take levothyroxine 30-60 min before breakfast on empty stomach. Avoid calcium / Iron containing medication for at least 4 hrs . Please recheck blood work (TSH, FT4 ) in about 6-10 weeks for dose adjustment. documented in this encounter Progress Notes Huy Gonzalez MD - 03/20/2019 9:20 AM EST Anastasiia Prather 33 y.o. female comes to [facility] , [place], [place] for F/u for hypothyroidism /PCOS. Referred by Marci Graves MD ROLANDO : 04/23/2018 Patient accompanied by none CC: Dizziness Episodes - pt had seen Vertigo Specialist - was told to have anxiety related - was started on Hydroxyzine with some relief. Hair loss . 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 Pt started seeing Dr. Mina Hunter, [employer]- pt was started on L-T4 100 mcg/ d . Symptoms did not improve. Pt also was diagnosed to have Lyme d in Nov [address] Charles Guerrero @ [place], [place] by westernblot test . Pt was treated with Doxycycline from 11/2015 till 05/2016 -pt stopped f/u and started seeing Tanna Mclain CNM who suggested thyroid US . 07/12/2016 (cf 02/06/2013) US thyroid: No nodules in R lobe Left lobe inf isoechoic nodule 6x4x6 mm ( decrease in size from 14x6x7 mm ) . Second nodule in mid-portion 15x6x9 mm with mild intrinsic vascularity ( decreased in size from 09a0k88 mm ) . New small nodule in isthmus hyperechoic 9x7x6 mm . Patient was started on Zoloft in 2015 . Pt was also diagnosed to havec sleep-apnea in October 2012 - on CPAP. Facial flushing -started Summer 2017 . Now usually 1 /day- mid-day - worse with ETOH . No associated sweating , headaches or palpitations . Pt also is seeing Derm Present dose of Thyroid Medication : L-T4 100 mcg/d ( missed 1- 1.5 week in Jan- Feb 2019 - now takes consistently last couple of weeks ) - stable dose ( Generic ) - patient overall compliant -made aware of potential drug interactions and takes medication at night 4 hrs after last meal ) Pt stopped metformin after 2 months - had mild GI issues . Pt was Gaining weight after delivery - Prepregnancy 220 lbs .-pt started gaining weight - pt saw [facility] For weight loss at [place], [place] - BMR 2600 kcal/d -and high protein- low carb diet was advised - pt did not lose weight . Pt has tried Tomasa Parker's diet in 2008 ( ( calorie count/diet/exercise - 70 lbs loss I 1 yr ) . Olsen bran diet also did not work. . Patient Had lost 20 lbs with intermediate fasting- now overall stable . Plans to Join Gym / Swimming . Pt was evaluated by SAP SPECIALIST Dr. Desir - was advised ketogenic diet . Pt in phase of defeated frustration -drinks regular soda 1 can/day . Menarche: age 11 yrs . A2 ( miscarriage and ectopic ) - last 2012 - No h/o GDM. Used to have regular periods - now mild delayed . LMP: 02/26/2019 Mild acne /facial hair - 6-8 yrs -worse last 4 yrs . Not aware of any ovarian cysts . 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 Anxiety/depression Mood- on zoloft . 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 No Thyroid Eye changes No Thyroid Skin Changes No Hair loss Local Thyroid problem: Patient aware of visible goiter : + decreased change in size No difficulty swallowing No change in voice No local /referred thyroid pain. No exposure to radiation To neck. No recent exposure to iodine load (diet/Radiocontrast study etc) . H/o family h/o thyroid problem- mother H/o family h/o goiter No Family h/o thyroid Cancer. Thyroid function tests; Date: 12/15/2015 TSH: 1.31 (0.5-6) , FT4: 0.97 (0.75-1.54) , FT3: 2.71 (2-4.9) US Thyroid : 07/12/2016 (cf 02/06/2013) US thyroid: No nodules in R lobe Left lobe inf isoechoic nodule 6x4x6 mm ( decrease in size from 14x6x7 mm ) . Second nodule in mid-portion 15x6x9 mm with mild intrinsic vascularity ( decreased in size from 30e4g64 mm ) . 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 Rest of complete review of system obtained and is negative. calcium and vitamin D. Current Outpatient Medications on File Prior to Visit Medication Sig Dispense Refill Cyclobenzaprine HCl 10 MG Oral Tablet (FLEXERIL) hydrOXYzine HCl 25 MG Oral Tablet (ATARAX) Ibuprofen 800 MG Oral Tablet (ADVIL,MOTRIN) levothyroxine (SYNTHROID, LEVOTHROID) 100 MCG tablet Take 100 mcg by mouth Daily Pantoprazole Sodium 40 MG Oral Tablet Delayed Release (PROTONIX) ProAir HFA 108 (90 Base) MCG/ACT Inhalation Aerosol Solution [DISCONTINUED] metformin (GLUCOPHAGE-XR) 500 MG 24 hr tablet Take 1 tablet by mouth Two TimesDaily (Patient not taking: Reported on 03/20/2019) 60 tablet 5 No current facility-administered medications on file prior to visit. Azithromycin and Keflex [cephalexin] Family history, social history, past medical and surgical history reviewed and updated. A full 10 point review of systems reviewed and updated as appropriate. Pertinent conditions are indicated above. Physical Exam: Visit Vitals BP 130/88 (BP Location: Left arm, Patient Position: Sitting, Cuff size: Adult Large) Pulse 76 Resp 12 Ht 1.805 m (5' 11.06") Wt (!) 164.2 kg (362 lb) BMI 50.40 kg/m Well developed, well nourished, in no acute distress. Normocephalic, atraumatic Eyes: anicteric. PERRL. EOM full. Mouth and Throat: normal Dentition: good Thyroid: diffusely enlarged about 3 times normal , firm , non-tender wo dominant nodule. Neck: Supple. no JVD. No adenopathy. Cardiac exam: Regular rate and rhythm or S1S2 present Chest exam: Normal. Abdomen: abdomen is soft without significant tenderness, masses, organomegaly or guarding Feet: negative Reflexes: present at the biceps and knees Gait: normal Psychiatric: affect normal Laboratories: Lab Results Component Value Date TSH 2.11 04/18/2018 Assessment And Plan: 1. .Martha's thyroiditis /[place]olis. Hypothyroidism: with moderate goiter wo thyroid eye/skin d. Hypothyroidism management d/w pt. Levothyroxine replacement therapy discussed with patient. Symptomsof hypo/hyperthyroidism d/w patient. Need to check periodic lab work (thyroid function tests ) toadjust medication dose about 6- 12 weeks after dose change d/w pt. Potential drug-drug, drug-food Interactions ( including need to take L-T4 on empty stomach with glass of water preferably at least 30-60 in before breakfast and at least 4 hrs away from Calcium or Iron containing medications ) d/w pt. Questions answered . . Questions answered 04/18/2018 TSH: 2.11 Plan : Ct L-T4 100 mcg /d - to recheck labs in about 4 weeks since pt was wo meds late Jan 2019 2.Metabolic syndrome ( impaired fasting glucose / Elevated TG and low HDL), central obesity 3. BMI: 50 ( cf 48 ) :Impaired fasting glucose ,fasting glucose - 106, Insulin 22 ( 04/18/2018) T. Chol: 174.HDL: 28, LDL: 78, T . 04/18/2018 DHEA-S: 192 (45-295) Free Testosterone: 0.56 ( 0.06-1.03) Normal Midnight Salivary cortisol 05/16/2018 Normal 24 hr urine catecholamines , free cortisol, 5 HIAA. Diet, exercise, and need for increased activity were discussed with the patient. therapeutic options-risk/benefits [ FDA approved Pharmacologic Rx Saxenda ( Liraglutide ) Inj, Belviq (Lorcaserine ) , Contrave ( Naltrxone ad Buproprione ) , Xenical (orlistat) QSymia (Phentermine-Topiramate ) ] . Written information provided. Lack of long-term safety data and tendency for weight gain after stopping medication d/w patient. Bariatric Surgery d/w patient-questions answered . f/u mid-night salivary cortisol to r/o Audie's d. 4.PCOS : clinical hyperandrogenism . ( acne /mild hirsutism , mild menstrual irregularity ) Pathophysiology of Polycystic ovarian syndrome d/w pt- questions answered . Therapeutic options d/w pt. Off label use of metformin as insulin smart energy specialist d/w pt. Importance of diet /exercise/ weight loss discussed with patient. Role of insulin resistance d/w pt. Diabetes prevention trial d/w pt. Therapeutic options to control hyperandrogenemia ( Metformin / OCP / Spironolactone ) d/w pt. Questions answered . Risk/benefits /indications/precautions associated with metformin d/w pt. Questions answered .Precautions regarding IV contrast studies -need to stop metformin 1 day prior, on the day of procedure and 1 day after procedure and checking BUN/S. Creat prior to restating Metformin-d/w pt. Rare risk of lactic acidosis d/w pt. Patient interested in restarting metformin . 5. Sleep-apnea : On CPAP. 6. Hyperlipidemia: Diet/exercise /fish oil cap Target TG < 250 will be acceptable. 7. Depression - ct f/u PCP. 8. Increase in shoe size : will check IGF1 . Fasting . RTC 6 months . Addendum: Thyroid Ultrasound . 03/16/2017 Indication: Goiter . Exam findings: Goiter Cervical LNs CARDIOVASCULAR RN Real time thyroid US was performed with a high resolution transducer and multiple images were obtained. Isthmus: 8 mm Right Thyroid Lobe: The lobe measured 13n89v25 mm. The lobe is enlarged Echogenicity: heterogeneous Left Thyroid Lobe: The lobe measured 82f31k92 mm . The lobe is normal Echogenicity: heterogeneous Right Thyroid Nodules: No dominant nodule noted Left Thyroid Nodules: 1. No dominant nodule noted 2. Isthmus: 7x6 mm hyperechoic nodule w/o increased vascularity or calcification Lymphadenopathy: absent IMPRESSION: Heterogeneous bilateral echotexture with small benign appearinf isthmus nodule -Overall US appearance suggestive of Martha's thyroiditis RECOMMENDATION: F/u clinically. Addendum: 04/20/2018 Midnight salivary cortisol: < 50 . documented in this encounter Plan of Treatment Date Type Specialty Care Team Description 09/23/2019 Office Visit Endocrinology Jyoti Rosas PA [address] [place] [address] [phone] Name Type Priority Associated Diagnoses Order Schedule TSH Lab Routine Primary hypothyroidism 1 Occurrences starting 03/20/2019 until 09/19/2019 T4, free Lab Routine Primary hypothyroidism 1 Occurrences starting 03/20/2019 until 09/19/2019 CBC Lab Routine Fatigue, unspecified type 1 Occurrences starting 03/20/2019 until 09/19/2019 Cortisol Lab Routine Fatigue, unspecified type 1 Occurrences starting 03/20/2019 until 09/19/2019 ACTH Level Lab Routine Fatigue, unspecified type 1 Occurrences starting 03/20/2019 until 09/19/2019 Comprehensive Metabolic Lab Routine Primary hypothyroidism 1 Occurrences starting Panel Morbid obesity with BMI 03/20/2019 until of 50.0-59.9, adult 09/19/2019 Fatigue, unspecified type Insulin-like Growth Lab Routine Primary hypothyroidism 1 Occurrences starting Factor IGF-1 Morbid obesity with BMI 03/20/2019 until of 50.0-59.9, adult 09/19/2019 Fatigue, unspecified type Health Maintenance Due Date Last Done Comments MMR Vaccines (1 of 1 - Standard 10/16/1984 series) Varicella Vaccines (1 of 2 - 10/16/1984 2-dose childhood series) DTaP,Tdap,and Td Vaccines (1 - 10/16/1990 Tdap) HIV Screening 10/16/1996 Cervical Cancer Screening 5 years 10/16/2004 Influenza Vaccine 01/08/2019 Pneumococcal Vaccine: 65+ Years (1 10/16/2048 of 2 - PCV13) HIB Vaccines Aged Out No longer eligible based on patient's age to complete this topic Hepatitis A Vaccines Aged Out No longer eligible based on patient's age to complete this topic Hepatitis B Vaccines Aged Out No longer eligible based on patient's age to complete this topic IPV Vaccines Aged Out No longer eligible based on patient's age to complete this topic Pneumococcal Vaccine: Pediatrics Aged Out No longer eligible based on (0 to 5 Years) and At-Risk patient's age to complete this Patients (6 to 64 Years) topic documented as of this encounter Results Not on filedocumented in this encounter Visit Diagnoses Diagnosis Primary hypothyroidism - Primary Unspecified hypothyroidism Morbid obesity with BMI of 50.0-59.9, adult Morbid obesity Fatigue, unspecified type PCOS (polycystic ovarian syndrome) Polycystic ovaries documented in this encounter
[2019-05-15 20:03] LABS: ABS Eosinophils 0.1 10^3/ul (0-0.6); ABS Lymphocytes 3.5 10^3/ul (1.0-4.8); ABS Monocytes 0.4 10^3/ul (0-0.8); ABS Neutrophils 3.8 10^3/ul (1.5-7.7); Eosinophil % 1.7 %; Hematocrit 38 % (35-47); Hemoglobin 12.6 g/dL (12.0-16.0); Lymphocyte % 44.6 %; Mean Corpuscular HGB Conc 34 g/dL (31-36); Mean Corpuscular Hemoglobin 27 pg (27-31); Mean Corpuscular Volume 79 fL (80-97); Mean Platelet Volume 7.7 fL (7.4-10.4); Platelet Count 286 10^3/uL (150-450); Red Blood Count 4.73 10^6 /uL (3.70-4.87); Red Cell Distribution Width 15 % (10-15); White Blood Count 7.8 10^3/uL (3.5-10.8)
[2019-05-15 20:28] LABS: ALT 28 U/L (7-52); AST 24 U/L (13-39); Albumin 4.1 g/dL (3.2-5.2); Albumin/Globulin Ratio 1.3 (1-3); Alkaline Phosphatase 66 U/L (34-104); Anion Gap 8 mmol/L (2-11); BUN/Creatinine Ratio 12.2 (8-20); Blood Urea Nitrogen 10 mg/dL (6-24); C Reactive Protein 1.57 mg/L (<8.01); CO2 Carbon Dioxide 27 mmol/L (22-32); Chloride 103 mmol/L (101-111); EGFR Non-African American 79.3 (>60); Globulin 3.2 g/dL (2-4); Glucose 90 mg/dL (70-100); Potassium 4.2 mmol/L (3.5-5.0); Sodium 138 mmol/L (135-145); Total Protein 7.3 g/dL (6.4-8.9)
[2019-05-15 20:31] LABS: HCG Pregnancy < 0.60 mIU/mL
--- NOTE | 2019-05-15 22:01 | ED ---
Abdominal Pain/Female - HPI Summary HPI Summary: 33 year old F presenting to [facility] from [facility] complains of gradual onset, constant LUQ pain described as cramping which occasionally radiates into her RUQ since 1100 today 05/15/2019. Called her primary care provider today in the afternoon who referred patient to [facility]. Went to [facility] this afternoon where she had low grade fever. No fever noted at triage here. Had UA done at [facility] which was normal per patient. Patient states she has been having intermittent episodes of nausea/vomiting/diarrhea, abdominal cramping, and light headedness. First episode in February 2019 when patient woke up with nausea, had vomiting and diarrhea, abdominal cramping, and light headedness. Second episode in March 2019 with same symptoms. Most recent episode 29905/13/2019 when patient woke up with nausea, went to the bathroom, had abdominal cramping then diarrhea and light headedness. Patient states she has been taking Imodium after these episodes which has helped. No dysuria. The patient rates the pain 6/10 in severity. Symptoms aggravated by nothing. Symptoms alleviated by nothing. Patient states she hasn't eaten anything today or drank anything since 1600 today. Patient now complaining of headache. She states she doesn't feel as flushed as she did at [facility] and that the pain is still steady. No recent diet change. Medications reviewed. Allergies noted. - History of Current Complaint Chief Complaint: EDAbdPain Stated Complaint: ABD PAIN PER PT Time Seen by Provider: 05/15/19 21:55 Hx Obtained From: Patient Hx Last Menstrual Period: 05/03/19 Onset/Duration: Lasting Hours - 1100 today 05/15/2019, Still Present Timing: Constant Severity Currently: Moderate Pain Intensity: 6 Pain Scale Used: 0-10 Numeric Location: Discrete At: LUQ Radiates: Yes Radiates to: Other - RUQ Character: Cramping Aggravating Factor(s): Nothing Alleviating Factor(s): Nothing Associated Signs and Symptoms: Positive: Negative - dysuria, Nausea, Vomiting, Diarrhea, Other: - light headedness Allergies/Adverse Reactions: Allergies Allergy/AdvReac Type Severity Reaction Status Date / Time amoxicillin Allergy Rash Verified 05/15/19 18:02 cephalexin [From Keflex] Allergy Rash Verified 05/15/19 18:02 naproxen Allergy Swelling Verified 05/15/19 18:02 PMH/Surg Hx/FS Hx/Imm Hx Endocrine/Hematology History: Reports: Hx Thyroid Disease - Martha's thyroiditis , Hx Anemia - takes iron daily, Other Endocrine/Hematological Disorders - Hx chronic Lyme disease Denies: Hx Diabetes Cardiovascular History: Reports: Other Cardiovascular Problems/Disorders - PALPITATIONS/OBESITY Denies: Hx Hypertension, Hx Pacemaker/ICD Respiratory History: Reports: Hx Sleep Apnea - evaluation for 09/2013 Denies: Hx Asthma, Hx Chronic Obstructive Pulmonary Disease (COPD) GI History: Denies: Hx Ulcer History: Denies: Hx Renal Disease Musculoskeletal History: Reports: Hx Orthopedic Injury - 1995 (right) arm fx Sensory History: Reports: Hx Contacts or Glasses Denies: Hx Hearing Aid Opthamlomology History: Reports: Hx Contacts or Glasses Neurological History: Reports: Hx Headaches Psychiatric History: Reports: Hx Anxiety, Hx Depression Denies: Hx Panic Disorder - Cancer History Cancer Type, Location and Year: none Infectious Disease History: No Infectious Disease History: Denies: Hx Clostridium Difficile, Hx Hepatitis, Hx Human Immunodeficiency Virus (HIV), Hx of Known/Suspected MRSA, Hx Shingles, Hx Tuberculosis, Hx Known/ Suspected VRE, Hx Known/Suspected VRSA, History Other Infectious Disease, Traveled Outside the [place] in Last 30 Days - Family History Known Family History: Positive: Hypertension, Diabetes - Social History Alcohol Use: None Substance Use Type: Reports: None Hx Tobacco Use: No Smoking Status (MU): Never Smoked Tobacco Have You Smoked in the Last Year: No Review of Systems Positive: Abdominal Pain, Vomiting, Diarrhea, Nausea Negative: dysuria Neurological: Other - light headedness All Other Systems Reviewed And Are Negative: Yes Physical Exam - Summary Physical Exam Summary: Appearance: Well-appearing, Well-nourished, lying in bed comfortably Skin: Warm, dry, no obvious rash Eyes: sclera anicteric, no conjunctival pallor ENT: mucous membranes moist, pharynx appears normal Neck: Supple, nontender Respiratory: Clear to auscultation, no signs of respiratory distress Cardiovascular: Normal S1, S2. No murmurs. Normal distal pulses in tibial and radial bilaterally. Abdomen: Soft, nontender, normal active bowel sounds present Musculoskeletal: Normal, Strength/ROM Intact Neurological: A&Ox3, awake and alert, mentation is normal, speech is fluent and appropriate Psychiatric: affect is normal, does not appear anxious or depressed Triage Information Reviewed: Yes Vital Signs On Initial Exam: Initial Vitals Temp Pulse Resp BP Pulse Ox 98.4 F 75 19 150/96 95 05/15/19 18:00 05/15/19 18:00 05/15/19 18:00 05/15/19 18:00 05/15/19 18:00 Vital Signs Reviewed: Yes Procedures - Sedation Patient Received Moderate/Deep Sedation with Procedure: No Diagnostics - Vital Signs Vital Signs Temp Pulse Resp BP Pulse Ox 05/15/19 18:00 98.4 F 75 19 150/96 95 - Laboratory Lab Results: Lab Results 05/15/19 05/15/19 Range/Units 19:41 19:41 WBC 7.8 (3.5-10.8) 10^3/uL RBC 4.73 (3.70-4.87) 10^6 /uL Hgb 12.6 (12.0-16.0) g/dL Hct 38 (35-47) % MCV 79 L (80-97) fL MCH 27 (27-31) pg MCHC 34 (31-36) g/dL RDW 15 (10-15) % Plt Count 286 (150-450) 10^3/uL MPV 7.7 (7.4-10.4) fL Neut % (Auto) 48.3 % Lymph % (Auto) 44.6 % [place] % (Auto) 4.9 % Eos % (Auto) 1.7 % Baso % (Auto) 0.5 % Absolute Neuts (auto) 3.8 (1.5-7.7) 10^3/ul Absolute Lymphs (auto) 3.5 (1.0-4.8) 10^3/ul Absolute Monos (auto) 0.4 (0-0.8) 10^3/ul Absolute Eos (auto) 0.1 (0-0.6) 10^3/ul Absolute Basos (auto) 0.0 (0-0.2) 10^3/ul Absolute Nucleated RBC 0.0 10^3/ul Nucleated RBC % 0.0 Sodium 138 (135-145) mmol/L Potassium 4.2 (3.5-5.0) mmol/L Chloride 103 (101-111) mmol/L Carbon Dioxide 27 (22-32) mmol/L Anion Gap 8 (2-11) mmol/L BUN 10 (6-24) mg/dL Creatinine 0.82 (0.51-0.95) mg/dL Est GFR ( Amer) 96.0 (>60) Est GFR (Non-Af Amer) 79.3 (>60) BUN/Creatinine Ratio 12.2 (8-20) Glucose 90 (70-100) mg/dL Calcium 9.0 (8.6-10.3) mg/dL Total Bilirubin 0.40 (0.2-1.0) mg/dL AST 24 (13-39) U/L ALT 28 (7-52) U/L Alkaline Phosphatase 66 (34-104) U/L C-Reactive Protein 1.57 (<8.01) mg/L Total Protein 7.3 (6.4-8.9) g/dL Albumin 4.1 (3.2-5.2) g/dL Globulin 3.2 (2-4) g/dL Albumin/Globulin Ratio 1.3 (1-3) Lipase 23 (11.0-82.0) U/L Beta HCG, Quant < 0.60 mIU/mL Result Diagrams: 05/15/19 19:41 05/15/19 19:41 Lab Statement: Any lab studies that have been ordered have been reviewed, and results considered in the medical decision making process. - Ultrasound Gallbladder Ultrasound Interpretation Completed By: Radiologist Summary of Ultrasound Findings: No sonographic findings to correlate with patient's symptomatology. ED physician has reviewed this report. Renal Ultrasound Interpretation Completed By: Radiologist Summary of Ultrasound Findings: Sonographically normal left kidney. ED physician has reviewed this report. Abdominal Pain Fem Course/Dx - Course Course Of Treatment: 33 y/o F from [facility] complains of gradual onset, constant LUQ pain described as cramping which occasionally radiates into her RUQ since 1100 today 05/15/2019. sHE has been having intermittent episodes of nausea/vomiting/diarrhea, abdominal cramping, and light headedness. Most recent episode 29905/13/2019. Patient states she has been taking Imodium after these episodes which has helped. Patient now complaining of headache. She states she doesn't feel as flushed as she did at [facility] and that the pain is still steady. Physical exam unremarkable. Bloodwork results with no significant abnormalities except for MCV 79. Urinalysis done here with no significant abnormalities except for specific gravity 1.009, trace leukocyte esterase, squamous epithelial cells, and bacteria 1+. Gallbladder US shows per radiologist no sonographic findings to correlate with patient's symptomatology. Renal US shows per radiologist sonographically normal left kidney. Patient will be discharged home with follow up from her primary care provider in 1 week. Patient was instructed to return to Emergency Department for new or worsening symptoms. Patient understands and is agreeable to this plan. - Diagnoses Provider Diagnoses: Abdominal pain Discharge ED - Sign-Out/Discharge Documenting (check all that apply): Patient Departure - Discharge Plan Condition: Good Disposition: HOME Patient Education Materials: Acute Abdominal Pain (ED) Referrals: Marci Graves MD [Primary Care Provider] - 1 Week (if not improving) Additional Instructions: The lab testing and ultrasound studies we ran tonight did not show a cause for your pain, but nor did they show any sign of a serious problem in the abdomen as the cause of your symptoms. I think it is safe to discharge you at this point. Sometimes the best or only way to diagnose an illness is to let some time go by and see how the illness develops, so if you develop new symptoms or the pain persists or worsens, a followup visit may be very helpful. This can be through your PCP ideally, but we are always here as well if you need us. - Billing Disposition and Condition Condition: GOOD Disposition: Home - Attestation Statements Document Initiated by Patricia: Yes Documenting Scribe: Penny Pizano Provider For Whom Patricia is Documenting (Include Credential): Erich Mera MD Scribe Attestation: I, Penny Pizano, scribed for Erich Mera MD on 05/19/19 at 0625. Scribe Documentation Reviewed: Yes Provider Attestation: The documentation as recorded by the Penny daniels accurately reflects the service I personally performed and the decisions made by me, Erich Mera MD Status of Scroly Document: Viewed
[2019-05-15 22:40] LABS: Urine Appearance Cloudy; Urine Bilirubin Negative (Negative); Urine Blood Negative (Negative); Urine Color Yellow; Urine Glucose Negative (Negative); Urine Ketones Negative (Negative); Urine Nitrite Negative (Negative); Urine Protein Negative (Negative); Urine Specific Gravity 1.009 (1.010-1.030); Urine Urobilinogen Negative (Negative)
[2019-05-15 22:58] LABS: Urine Bacteria 1+ (Absent); Urine Red Blood Cell Trace(0-2/hpf) (Absent); Urine Squamous Epithelial Cell Present (Absent); Urine White Blood Cell Trace(0-5/hpf) (Absent)
[2019-05-16 00:54] VITALS: BP 135/72
== END 2019-05-16 00:53 | disposition home or self-care (01) ==
LOC: ED 17:47
DX: R10.12 Left upper quadrant pain (principal); E06.3 Autoimmune thyroiditis; D64.9 Anemia, unspecified; F41.9 Anxiety disorder, unspecified; F32.9 Major depressive disorder, single episode, unspecified; Z88.0 Allergy status to penicillin; Z88.1 Allergy status to other antibiotic agents; Z88.8 Allergy status to other drugs, medicaments and biological substances
CPT/HCPCS: 36415; 76705; 76775; 80053; 81003; 81015; 83690; 84702; 85025; 86140; 99283